=== PATIENT | male | born 1945 | race Caucasian/White ===

== ENCOUNTER → 2016-11-07 | Outpatient (CLI) | payer OTHER ==
[~2016-11-07] MED LIST: ASCA500 PO; ASPI-435 PO; ASPI325T39 PO; CHOL1000 PO; CLOP1TAB5 PO; CRD60 PO; CYAN10004 PO; DILT40TA PO; DTRSR/10 PO; FERR1TAB23 PO; FINA5TAB PO; GABA1CAP5 PO; GLUCTAB7 PO; LSN/2025 PO; METO50TA7 PO; MISCCAP80 PO; MULT-506 PO; NIAC750T2 PO; OMEG10007 PO; PLV75 PO; POTA-335 PO; POTA1TAB97 PO; PRLSR20 PO; PROB1TAB16 PO; PYRI100T4 PO; SOLI10TA2 PO; TAMS0.4C38 PO; TRAM-10 PO; VITBC PO
[2016-11-11 22:48] LABS: VITAMIN B6** TC 926 60.5 ng/mL (2.1-21.7)
--- NOTE | 2016-11-23 09:19 | CODING QUERY MEDICAL NECESSITY ---
CQSUPPORTING DIAGNOSIS NEEDED A supporting diagnosis is required for the test/procedure performed on this patient in order for us to be reimbursed by the patient's insurance. Please provide a supporting diagnosis for the following test/procedure listed below next to the test name along with your signature. *If there is no additional diagnosis for this patient that would support the following test/procedure please document that below next to the test/procedure. Test(s)/Procedure(s) that require a supporting diagnosis: DOS 11/07/16 VITAMINS B12, B6, B2 AND B1 ORDERED BY RICHARD HESS Provider Signature: Date: Thank you Airam Willis Health Information Management Once completed, please kindly fax back to [phone] For questions please call [phone]
== END | disposition home or self-care (01) ==
LOC: C.LAB 09:22
PROVIDERS: ATTEND Internal Medicine
DX: R20.0 Anesthesia of skin (principal)

== ENCOUNTER → 2016-12-16 | Outpatient (CLI) | payer OTHER ==
[~2016-12-16] VITALS: Ht 175.3 cm; Wt 131.4 kg
[2016-12-16 13:14] VITALS: BP 132/68; PULSE 60; Ht 175.3 cm; Wt 131.4 kg
== END | disposition home or self-care (01) ==
LOC: C.NEUR 12:09
PROVIDERS: ATTEND Internal Medicine Pulmonary Disease
DX: G47.33 Obstructive sleep apnea (adult) (pediatric) (principal)

== ENCOUNTER 2016-12-28 16:54 | Inpatient (IN) | payer OTHER ==
[~2016-12-28] VITALS: Ht 175.3 cm; Wt 129.6 kg
[~2016-12-28 16:54] MED LIST changes: -ASPI-435 PO; -CHOL1000 PO; -CLOP1TAB5 PO; -DILT40TA PO; -DTRSR/10 PO; -PLV75 PO; -POTA1TAB97 PO; -PROB1TAB16 PO
[2016-12-28] MEDS ORDERED: ASPIRIN 81 MG CHEW PO STA (17:14)
--- NOTE | 2016-12-28 17:22 | EMERGENCY ROOM VISIT NOTE ---
History Report prepared by Carmen: Candace Christiansen Under the Supervision of: Dr. Donnie Foster D.O. First contact with patient: 17:07 Chief Complaint: CARDIAC ASSESSMENT Stated Complaint: HEART PROBLEMS Nursing Triage Summary: Pt sent by Dr. [facility]. Pt reports heaviness in substernal chest, worse with exertion over the past 2-3 weeks. SOB. Hx of CAD with stent. History of Present Illness The patient is a 71 year old male who presents to the Emergency Room with complaints of persistent substernal chest pain for the past 2 to 3 weeks. He is accompanied by his . He rates his discomfort as a 1/10 and reports it is worse with exertion. He also complains of some shortness of breath that started around the same times as his chest pain. He admits to some back pain but notes he has a history of spinal stenosis and back pain is chronic for him. He also thinks his legs are more swollen than normal. The patient has a history of CAD with a stent. He follows with Dr. Fraser of [facility]. He denies any history of OK's. He is a non-smoker and states he drinks alcohol "once or twice a year". He denies any recent abdominal pain. He saw Dr. Granadso's office earlier today and after undergoing an EKG, Dr. Granados referred him to the ED for further evaluation. 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 A total of 10 systems reviewed and were otherwise negative. Past Medical & Surgical Medical Problems: (1) Coronary artery disease Social History Smoking Status: Former Smoker Drug Use: none Marital Status: Housing Status: lives with family Occupation Status: retired Current/Historical Medications Scheduled Ascorbic Acid (Vitamin C), 1 TAB PO HS Aspirin (Aspirin Ec), 325 MG PO QAM Diltiazem Hcl (Cardizem), 60 MG PO HS Finasteride (Proscar), 5 MG PO QAM Fish Oil ([place]-3), 1 CAP PO HS Gabapentin (Neurontin), 800 MG PO TID Wggidkcdpco-Fquiwfayqht-Qeb C- (Glucosamine Chondroitin), 1 TAB PO BID Hctz/Lisinopril (Lisinopril/Hctz 20/25 Mg), 1 TAB PO QAM Metoprolol Succ (Toprol Xl) (Toprol-Xl), 50 MG PO BID Multivitamin (Multivitamin), 1 TAB PO QAM Niacin Ext Rel (Niaspan Ext Rel), 750 MG PO BID Omeprazole (Prilosec), 20 MG PO QAM Potassium Chloride (K-Tab), 20 MEQ PO QAM Solifenacin (Vesicare), 10 MG PO HS Tamsulosin Hcl (Flomax), 0.4 MG PO HS Scheduled PRN Tramadol (Ultram), 50 MG PO Q4HR PRN for Pain Allergies Coded Allergies: Penicillins (Verified Allergy, Unknown, RASH, 12/28/16) Statins (Verified Adverse Reaction, Unknown, "WEAK", 12/28/16) Physical Exam Vital Signs Date Time Temp Pulse Resp B/P Pulse Ox O2 Delivery O2 Flow Rate FiO2 12/28/16 20:34 65 20 188/94 94 Room Air 12/28/16 20:16 58 24 172/81 96 Room Air 12/28/16 18:59 58 20 171/80 96 Room Air 12/28/16 18:29 54 20 162/74 95 12/28/16 17:40 55 163/84 12/28/16 17:38 94 Room Air 12/28/16 17:28 54 12/28/16 17:00 36.4 57 18 142/73 95 Room Air Physical Exam GENERAL: Patient is awake, alert, in no acute distress patient is resting comfortably and showing no signs of anxiety EYES: The conjunctivae are clear. The pupils are round and reactive. EARS, NOSE, MOUTH AND THROAT: The nose is without any evidence of any deformity. Mucous membranes are moist tongue is midline NECK: The neck is nontender and supple. RESPIRATORY: Normal respiratory effort is noted there is no evidence of wheezing rhonchi or rales CARDIOVASCULAR: Regular rate and rhythm noted there no murmurs rubs or gallops normal S1 normal S2 GASTROINTESTINAL: The abdomen is soft. Bowel sounds are present in all quadrants. Abdomen is nontender MUSCULOSKELETAL/EXTREMITIES: There is no evidence of gross deformity full range of motion is noted in the hips and shoulders SKIN: Pedal edema bilaterally, no signs of cellulitis or calf tenderness. There is no obvious evidence of any rash. There are no petechiae, pallor or cyanosis noted. NEUROLOGIC: Patient is awake alert and oriented x3 strength is symmetric patellar reflexes are 2+ bilaterally Medical Decision & Procedures ER Provider Diagnostic Interpretation: This X-Ray was reviewed and interpreted by myself and the radiologist. SINGLE VIEW CHEST IMPRESSION: Cardiomegaly with no acute cardiopulmonary abnormality. Electronically signed by: Junior Moon M.D. 12/28/2016 5:34 PM Laboratory Results 12/28/16 18:20 Red Blood Count 3.98, Mean Corpuscular Volume 91.0, Mean Corpuscular Hemoglobin 31.9, Mean Corpuscular Hemoglobin Concent 35.1, Mean Platelet Volume 9.8, Neutrophils (%) (Auto) 58.5, Lymphocytes (%) (Auto) 26.5, Monocytes (%) (Auto) 8.3, Eosinophils (%) (Auto) 6.5, Basophils (%) (Auto) 0.2, Neutrophils # (Auto) 2.89, Lymphocytes # (Auto) 1.31, Monocytes # (Auto) 0.41, Eosinophils # (Auto) 0.32, Basophils # (Auto) 0.01 12/28/16 18:20 Test 12/28/16 18:20 White Blood Count 4.94 K/uL (4.8-10.8) Red Blood Count 3.98 M/uL (4.7-6.1) Hemoglobin 12.7 g/dL (14.0-18.0) Hematocrit 36.2 % (42-52) Mean Corpuscular Volume 91.0 fL (80-100) Mean Corpuscular Hemoglobin 31.9 pg (25-34) Mean Corpuscular Hemoglobin Concent 35.1 g/dl (32-36) Platelet Count 117 K/uL (130-400) Mean Platelet Volume 9.8 fL (7.4-10.4) Neutrophils (%) (Auto) 58.5 % Lymphocytes (%) (Auto) 26.5 % Monocytes (%) (Auto) 8.3 % Eosinophils (%) (Auto) 6.5 % Basophils (%) (Auto) 0.2 % Neutrophils # (Auto) 2.89 K/uL (1.4-6.5) Lymphocytes # (Auto) 1.31 K/uL (1.2-3.4) Monocytes # (Auto) 0.41 K/uL (0.11-0.59) Eosinophils # (Auto) 0.32 K/uL (0-0.5) Basophils # (Auto) 0.01 K/uL (0-0.2) RDW Standard Deviation 44.6 fL (36.4-46.3) RDW Coefficient of Variation 13.6 % (11.5-14.5) Immature Granulocyte % (Auto) 0.0 % Immature Granulocyte # (Auto) 0.00 K/uL (0.00-0.02) Prothrombin Time 10.5 SECONDS (9.0-12.0) Prothromb Time International Ratio 1.0 (0.9-1.1) Activated Partial Thromboplast Time 26.4 SECONDS (21.0-31.0) Partial Thromboplastin Ratio 1.0 Anion Gap 5.0 mmol/L (3-11) Est Creatinine Clear Calc Drug Dose 99.6 ml/min Estimated GFR () 98.3 Estimated GFR (Non- 84.8 BUN/Creatinine Ratio 21.4 (10-20) Calcium Level 8.6 mg/dl (8.5-10.1) Total Bilirubin 0.3 mg/dl (0.2-1) Direct Bilirubin 0.1 mg/dl (0-0.2) Aspartate Amino Transf (AST/SGOT) 27 U/L (15-37) Alanine Aminotransferase (ALT/SGPT) 43 U/L (12-78) Alkaline Phosphatase 89 U/L (45-117) Total Creatine Kinase 120 U/L (39-308) Creatine Kinase MB 1.8 ng/ml (0.5-3.6) Creatine Kinase MB Ratio 1.5 (0-3.0) Troponin I 0.027 ng/ml (0-0.045) Pro-B-Type Natriuretic Peptide 234 pg/ml (0-900) Total Protein 6.5 gm/dl (6.4-8.2) Albumin 3.3 gm/dl (3.4-5.0) Lipase 126 U/L (73-393) Lyme Disease IgG Antibody NEG (NEG) Lyme Disease IgM Antibody NEG (NEG) Laboratory results per my review. Medications Administered Medications (Trade) Dose Ordered Sig/[place] Route Start Time Stop Time Status Last Admin Dose Admin Aspirin (Aspirin Chew) 324 mg NOW STAT PO 5/3/17 17:14 12/28/16 17:15 DC 12/28/16 17:45 324 MG ECG Indication: chest pain Rate (beats per minute): 55 Rhythm: sinus bradycardia Findings: 1st degree AV block, RBBB, other (No PVC's) Comparison ECG Date: RBBB is new when compared to August 09, 2007 ED Course 1710: The patient was evaluated in room C12. A complete history and physical examination were performed. 1713: Aspirin 324 mg PO. 1924: I reevaluated the patient. I discussed my recommendation that he remain in the hospital for further evaluation and management and he and his verbalized complete understanding and agreement. 1926: I discussed the patients case with Dr. Lynn [facility] Hospitalist. The patient will be further evaluated. Medical Decision Prior records/ancillary studies reviewed. Triage Nursing notes reviewed. The patient's history was concerning for chest pain. Differential diagnosis: Etiologies such as cardiac ischemia, aortic dissection, pulmonary embolism, pneumonia, pneumothorax, musculoskeletal, infections, pericarditis, myocarditis , esophageal rupture, gastrointestinal, as well as others were entertained. The patient is a 71-year-old male who presented to the emergency department for an evaluation of chest pain and dyspnea on exertion. The patient went to see his primary care physician today for the symptoms. He was found have a new right bundle-branch block on EKG. The patient had no symptoms upon arrival here. His primary printing plate clerk was notified by his primary care physician. The patient's pain did not recur while he was in the emergency department. I discussed the patient's laboratory and radiographic studies with him. I also discussed his case with the on-call [facility] hospitalist. They've agreed to evaluate the patient in the emergency department for further management and disposition. Consults Time Called: 1925 Consulting Physician: Dr. Lynn [facility] Hospitalist Returned Call: 1926 I discussed the patients case with Dr. Lynn [facility] Hospitalist. The patient will be further evaluated. Impression Primary Impression: Chest pain Additional Impressions: Dyspnea on exertion Abnormal EKG Elevated troponin Scribe Attestation The scribe's documentation has been prepared under my direction and personally reviewed by me in its entirety. I confirm that the note above accurately reflects all work, treatment, procedures, and medical decision making performed by me. Departure Information Dispostion Being Evaluated By Hospitalist Referrals Kane Granados M.D. (PCP) Patient Instructions [facility] Problem Qualifiers Primary Impression: Chest pain Chest pain type: unspecified Qualified Codes: R07.9 - Chest pain, unspecified
--- NOTE | 2016-12-28 17:35 | DIAGNOSTIC IMAGING REPORT ---
SINGLE VIEW CHEST CLINICAL HISTORY: Atypical chest pain. FINDINGS: An AP, portable, upright chest radiograph is compared to study dated 03/06/2013 and correlated with chest CT dated 06/29/2016. The examination is degraded by portable technique and apical lordotic positioning. The heart is enlarged and there is atherosclerotic calcification of the thoracic aorta. The pulmonary vasculature is noncongested. The lungs and pleural spaces are clear. No pneumothorax is seen. The bony thorax is grossly intact. Degenerative change is noted in the thoracic spine. IMPRESSION: Cardiomegaly with no acute cardiopulmonary abnormality. Electronically signed by: Junior Moon M.D. 12/28/2016 5:34 PM Dictated Date/Time: 12/28/2016 5:33 PM
[2016-12-28] MEDS ORDERED: POTA1TAB97 PO (17:49)
[2016-12-28] MEDS ORDERED: DILT40TA PO (17:49)
[2016-12-28 18:33] LABS: BASO % 0.2 %; BASO ABS # 0.01 K/uL (0-0.2); COMPLETE YES; EOS % 6.5 %; HEMATOCRIT 36.2 % (42-52); LYMPH % 26.5 %; LYMPH ABS # 1.31 K/uL (1.2-3.4); MEAN CORPUSCULAR HEMOGLOBIN 31.9 pg (25-34); MEAN CORPUSCULAR HGB CONC 35.1 g/dl (32-36); MEAN PLATELET VOLUME 9.8 fL (7.4-10.4); MONO % 8.3 %; NEUT % 58.5 %; PLATELET COUNT 117 K/uL (130-400); RED BLOOD COUNT 3.98 M/uL (4.7-6.1); WHITE BLOOD COUNT 4.94 K/uL (4.8-10.8)
[2016-12-28 18:44] LABS: PROTHROMBIN TIME (PATIENT) 10.5 SECONDS (9.0-12.0)
[2016-12-28 18:51] LABS: BUN/CREATININE RATIO 21.4 (10-20); CALCIUM 8.6 mg/dl (8.5-10.1); CREATININE 0.89 mg/dl (0.60-1.40); POTASSIUM 4.1 mmol/L (3.5-5.1)
[2016-12-28 18:56] LABS: CKMB/CK RATIO 1.5 (0-3.0)
[2016-12-28 19:22] LABS: LYME DISEASE AB IGM NEG (NEG)
[2016-12-28 19:26] LABS: LYME DISEASE AB IGG NEG (NEG)
[2016-12-28] MEDS ORDERED: ONDANSETRON INJ 2 MG/ML 2 ML VIAL IV PRN (20:15)
[2016-12-28] MEDS ORDERED: ZOLPIDEM TARTRATE 5 MG TAB PO PRN (20:15)
[2016-12-28] MEDS ORDERED: ACETAMINOPHEN 325 MG TAB PO PRN (20:15)
[2016-12-28] MEDS ORDERED: MoRPHine SULFATE 2 MG/ML CARP IV PRN (20:15)
[2016-12-28] MEDS ORDERED: MoRPHine SULFATE 4 MG/ML 1 ML CARP\\VIAL IV PRN (20:15)
[2016-12-28] MEDS ORDERED: NITROGLYCERIN 0.4 MG SL PER TAB CHARGE SL PRN (20:15)
[2016-12-28] MEDS ORDERED: TRAMADOL HCL 50 MG TAB PO PRN (20:15)
[2016-12-28] MEDS ORDERED: IV FLUIDS COMPLETED PRN (20:45)
[2016-12-28] MEDS ORDERED: NIASPAN 500 MG TABCR PO SCH (21:00)
[2016-12-28] MEDS ORDERED: NON-FORMULARY MEDICATION (Glucosamine-Chondroitin-Vit C- (Glucosamine Chondroitin) 1 TAB) PO SCH (21:00)
[2016-12-28 21:17] VITALS: BP_SYST 172; BP_SYST 181; BP_DIAS 72; BP_DIAS 78; PULSE 58; TEMP 36.6; O2SAT 95; Ht 175.3 cm; Wt 129.6 kg
[2016-12-28] MEDS: TAMSULOSIN HCL 0.4 MG CAP PO SCH (21:49)
[2016-12-28] MEDS: GABAPENTIN 400 MG CAP PO SCH (21:50)
[2016-12-28] MEDS: OMEGA-3 (PURIFIED FISH OIL) 1 GM CAP PO SCH (21:50)
[2016-12-28] MEDS: DILTIAZEM HCL 60 MG TAB PO SCH (21:51)
[2016-12-28] MEDS: ASCORBIC ACID 500 MG TAB PO SCH (21:52)
[2016-12-28] MEDS: METOPROLOL SUCC 50MG EXT REL TAB PO SCH (21:52)
--- NOTE | 2016-12-28 23:20 | History and Physical ---
History & Physical Date & Time of Service: December 28, 2016 at 23:20 Chief Complaint: Chest Pain, Dyspnea On Exertion Primary Care Physician: Kane Granados M.D. History of Present Illness Source: patient, spouse The patient is a 71-year-old male presents emergency department at the insistence of his for chest pain and shortness of breath, both worse with exertion over the past 2-3 weeks. He has a history of coronary artery disease with a stent. He presented to his PCPs office earlier in the day today, as part of his workup had an EKG which was different than his baseline, and he was then referred to the emergency department for further assessment. He also follows with Dr. Fraser from cardiology. He reports no difference in his usual activities, eating patterns or sleeping patterns. Social History Smoking Status: Former Smoker Smokeless Tobacco Use: No Alcohol Use: none Drug Use: none Marital Status: Housing status: lives with family Occupational Status: retired Immunizations History of Influenza Vaccine: No History of Tetanus Vaccine?: Yes Tetanus Immunization Date: Dec 01, 1999 History of Pneumococcal: No History of Hepatitis B Vaccine: No Multi-Drug Resistant Organisms History of MDRO: No Allergies Coded Allergies: Penicillins (Verified Allergy, Unknown, RASH, 12/28/16) Statins (Verified Adverse Reaction, Unknown, "WEAK", 12/28/16) Home Medications Scheduled Ascorbic Acid (Vitamin C), 1 TAB PO HS Aspirin (Aspirin Ec), 325 MG PO QAM Diltiazem Hcl (Cardizem), 60 MG PO HS Finasteride (Proscar), 5 MG PO QAM Fish Oil ([place]-3), 1 CAP PO HS Gabapentin (Neurontin), 800 MG PO TID Ipyiwuvtbcl-Leyqppspgwx-Rgv C- (Glucosamine Chondroitin), 1 TAB PO BID Hctz/Lisinopril (Lisinopril/Hctz 20/25 Mg), 1 TAB PO QAM Metoprolol Succ (Toprol Xl) (Toprol-Xl), 50 MG PO BID Multivitamin (Multivitamin), 1 TAB PO QAM Niacin Ext Rel (Niaspan Ext Rel), 750 MG PO BID Omeprazole (Prilosec), 20 MG PO QAM Potassium Chloride (K-Tab), 20 MEQ PO QAM Solifenacin (Vesicare), 10 MG PO HS Tamsulosin Hcl (Flomax), 0.4 MG PO HS Scheduled PRN Tramadol (Ultram), 50 MG PO Q4HR PRN for Pain Review of Systems Constitutional: No chills, No fatigue, No fever, No problem reported, No sweats , No weakness, No weight loss Eyes: No diplopia, No discharge, No eye pain, No problem reported, No redness, No worsening of vision ENT: No dental problems, No hearing loss, No nasal symptoms, No problem reported, No sore throat, No tinnitus, No trouble swallowing, No unusual epistaxis Respiratory: + dyspnea on exertion, + shortness of breath, No cough, No dyspnea at rest, No hemoptysis, No sputum, No wheezing Cardiovascular: + chest pain, + edema, No PND, No claudication, No orthopnea, No palpitations Abdomen: No GI bleeding, No constipation, No diarrhea, No nausea, No pain, No problem reported, No vomiting Musculoskeletal: No calf pain, No joint pain, No muscle pain, No problem reported, No swelling Genitourinary - Male: No dysuria, No hematuria, No impotence, No lesions, No penile discharge, No problem reported, No urinary frequency, No urinary hesitancy, No urinary incontinence, No urinary retention, No urinary urgency Neurologic: No balance problems, No memory loss, No numbness/tingling, No paralysis, No problem reported, No vertigo, No weakness Psychiatric: No anhedonism, No anxiety, No depression symptoms, No insomnia, No problem reported, No substance abuse Endocrine: No excessive thirst, No excessive urination, No fatigue, No problem reported Hematologic / Lymphatic: No abnormal bleeding/bruising, No clotting problems, No night sweats, No problem reported, No swollen lymph nodes Integumentary: No bleeding, No color change, No itch, No new/changing skin lesions, No problem reported, No rash Allergic / Immunologic: No environmental allergies, No food allergies, No frequent infections, No hives, No pet sensitivities, No poor healing, No problem reported, No prolonged convalescence, No seasonal allergies Physical Exam Vital Signs Date Time Temp Pulse Resp B/P Pulse Ox O2 Delivery O2 Flow Rate FiO2 12/28/16 21:17 36.6 58 22 181/78 95 Room Air 172/72 12/28/16 20:34 65 20 188/94 94 Room Air 12/28/16 20:16 58 24 172/81 96 Room Air 12/28/16 18:59 58 20 171/80 96 Room Air 12/28/16 18:29 54 20 162/74 95 12/28/16 17:40 55 163/84 12/28/16 17:38 94 Room Air 12/28/16 17:28 54 12/28/16 17:00 36.4 57 18 142/73 95 Room Air General Appearance: WD/WN, no apparent distress Head: normocephalic, atraumatic Eyes: normal inspection, PERRL, EOMI, sclerae normal ENT: normal ENT inspection, pharynx normal Neck: supple, no adenopathy, thyroid normal, no JVD, no carotid bruits, trachea midline Respiratory/Chest: chest non-tender, lungs clear, normal breath sounds, no respiratory distress, no accessory muscle use Cardiovascular: regular rate, rhythm, no gallop, no JVD, no murmur, normal peripheral pulses, + pertinent finding (there is 1+ pitting edema bilaterally.) Abdomen/GI: normal bowel sounds, non tender, soft, no organomegaly, no pulsatile mass Back: normal inspection, no CVA tenderness, no muscle spasm, + pertinent finding (mildly decreased range of motion due to chronic low back pain.) Extremities/Musculoskelatal: normal inspection, no calf tenderness, normal capillary refill, no pedal edema, normal range of motion, non-tender Neurologic/Psych: chief estimator II-XII nml as tested, no motor/sensory deficits, alert, normal mood/affect, normal reflexes, oriented x 3 Skin: normal color, warm/dry, no rash Lymphatic: no adenopathy Diagnostics Laboratory Results Results Past 24 Hours Test 12/28/16 17:14 12/28/16 18:20 Range/Units Creatine Kinase MB Ratio 1.5 0-3.0 White Blood Count 4.94 4.8-10.8 K/uL Red Blood Count 3.98 4.7-6.1 M/uL Hemoglobin 12.7 14.0-18.0 g/dL Hematocrit 36.2 42-52 % Mean Corpuscular Volume 91.0 80-100 fL Mean Corpuscular Hemoglobin 31.9 25-34 pg Mean Corpuscular Hemoglobin Concent 35.1 32-36 g/dl Platelet Count 117 130-400 K/uL Mean Platelet Volume 9.8 7.4-10.4 fL Neutrophils (%) (Auto) 58.5 % Lymphocytes (%) (Auto) 26.5 % Monocytes (%) (Auto) 8.3 % Eosinophils (%) (Auto) 6.5 % Basophils (%) (Auto) 0.2 % Neutrophils # (Auto) 2.89 1.4-6.5 K/uL Lymphocytes # (Auto) 1.31 1.2-3.4 K/uL Monocytes # (Auto) 0.41 0.11-0.59 K/uL Eosinophils # (Auto) 0.32 0-0.5 K/uL Basophils # (Auto) 0.01 0-0.2 K/uL RDW Standard Deviation 44.6 36.4-46.3 fL RDW Coefficient of Variation 13.6 11.5-14.5 % Immature Granulocyte % (Auto) 0.0 % Immature Granulocyte # (Auto) 0.00 0.00-0.02 K/uL Prothrombin Time 10.5 9.0-12.0 SECONDS Prothromb Time International Ratio 1.0 0.9-1.1 Activated Partial Thromboplast Time 26.4 21.0-31.0 SECONDS Partial Thromboplastin Ratio 1.0 Sodium Level 142 136-145 mmol/L Potassium Level 4.1 3.5-5.1 mmol/L Chloride Level 109 98-107 mmol/L Carbon Dioxide Level 28 21-32 mmol/L Anion Gap 5.0 3-11 mmol/L Blood Urea Nitrogen 19 7-18 mg/dl Creatinine 0.89 0.60-1.40 mg/dl Est Creatinine Clear Calc Drug Dose 99.6 ml/min Estimated GFR () 98.3 Estimated GFR (Non- 84.8 BUN/Creatinine Ratio 21.4 10-20 Random Glucose 107 70-99 mg/dl Calcium Level 8.6 8.5-10.1 mg/dl Total Bilirubin 0.3 0.2-1 mg/dl Direct Bilirubin 0.1 0-0.2 mg/dl Aspartate Amino Transf (AST/SGOT) 27 15-37 U/L Alanine Aminotransferase (ALT/SGPT) 43 12-78 U/L Alkaline Phosphatase 89 45-117 U/L Total Creatine Kinase 120 39-308 U/L Creatine Kinase MB 1.8 0.5-3.6 ng/ml Troponin I 0.027 0-0.045 ng/ml Pro-B-Type Natriuretic Peptide 234 0-900 pg/ml Total Protein 6.5 6.4-8.2 gm/dl Albumin 3.3 3.4-5.0 gm/dl Lipase 126 73-393 U/L Lyme Disease IgG Antibody NEG NEG Lyme Disease IgM Antibody NEG NEG Diagnostic Radiology Patient Name: IWONA WOODARD Unit Number: [id number] Dictated: 12/28/161732 Transcribed: 12/28/161732 EV Printed Date/Time: [~ rep prt dt]/[~ rep prt tm] [~ rep ct labl] - [~ rep ct ivnm] [facility] [place] [address] Dictated: 12/28/161732 Transcribed: 12/28/161732 EV Printed Date/Time: [~ rep prt dt]/[~ rep prt tm] [~ rep ct labl] - [~ rep ct ivnm] SINGLE VIEW CHEST CLINICAL HISTORY: Atypical chest pain. FINDINGS: An AP, portable, upright chest radiograph is compared to study dated 03/06/2013 and correlated with chest CT dated 06/29/2016. The examination is degraded by portable technique and apical lordotic positioning. The heart is enlarged and there is atherosclerotic calcification of the thoracic aorta. The pulmonary vasculature is noncongested. The lungs and pleural spaces are clear. No pneumothorax is seen. The bony thorax is grossly intact. Degenerative change is noted in the thoracic spine. IMPRESSION: Cardiomegaly with no acute cardiopulmonary abnormality. Electronically signed by: Junior Moon M.D. 12/28/2016 5:34 PM Dictated Date/Time: 12/28/2016 5:33 PM The status of this report is Signed. Draft = Not yet reviewed or approved by Radiologist. Signed = Reviewed and approved by Radiologist. <AttendingPhy></AttendingPhy> <FamilyPhy>Kane Granados M.D.</FamilyPhy > <PrimaryPhy>Kane Granados M.D.</PrimaryPhy> <UnitNumber>[id number]</ UnitNumber> <VisitNumber>[id number]</VisitNumber> <PatientName>IWONA WOODARD</PatientName> <DateOfBirth>1945</DateOfBirth> <Location>[facility] </Location> <ServiceDate>12/28/16</ServiceDate> <MNE>ESINDI</MNE> <OrderingPhy> Donnie Foster D.O.</OrderingPhy> <OrderingPhyMNE>f rep ord dr strong</ OrderingPhyMNE> <DictatingPhyMNE>f rep dict dr storng</DictatingPhyMNE> <CCListMNE> f rep ct tae</CCListMNE> <AdmittingPhyMNE>f pt admit dr strong</AdmittingPhyMNE> < AttendingPhyMNE>f pt attend dr strong</AttendingPhyMNE> <ConsultingPhyMNE>f pt consult dr strong</ConsultingPhyMNE> <FamilyPhyMNE>f pt fam dr strong</FamilyPhyMNE> <OtherPhyMNE>f pt other dr strong</OtherPhyMNE> < PrimaryPhyMNE>f pt prim care dr strong</PrimaryPhyMNE> <ReferringPhyMNE>f pt referring dr strong</ReferringPhyMNE> EKG EKG shows sinus bradycardia at 55 bpm, first-degree heart block, right bundle branch block, left axis deviation Impression Assessment and Plan Coronary artery disease/coronary artery stent/hypertension/precordial chest pain and shortness of breath--the patient will be admitted to telemetry unit for serial cardiac enzymes, cardiac rhythm monitoring and a 2-D echocardiogram with Dopplers. We'll continue aspirin 320 mg by mouth every morning, diltiazem 60 mg by mouth at bedtime, lisinopril/HCTZ 20/25 every morning, metoprolol succinate 50 mg by mouth twice a day, potassium chloride 20 mEq by mouth every morning. We'll consult his surgical coordinator Dr. Fraser. GERD--change omeprazole 20 mg by mouth every morning pantoprazole 40 mg by mouth every morning. Peripheral neuropathy--continue gabapentin 800 mg by mouth 3 times a day. BPH--continue finasteride 5 mg by mouth every morning and tamsulosin 0.4 mg by mouth at bedtime. Bladder spasm--continue Vesicare 10 mg by mouth at bedtime. Hypercholesterolemia--continue Niaspan extended release 750 mg by mouth twice a day, and fish oil 1 capsule by mouth at bedtime. Level of Care Telemetry Advanced Directives Existing Advance Directive: No Existing Living Will: No Existing Power of Ticket Broker: No Resuscitation Status FULL RESUSCITATION VTE Prophylaxis VTE Risk Assessment Done? Y/N: Yes Risk Level: Moderate Given or contraindicated: SCD's
[2016-12-28 23:46] VITALS: BP 157/65; PULSE 63; TEMP 36.5; O2SAT 98
[2016-12-28] MEDS: VESICARE~ORDER AWAITING ACTION SCH (23:54)
[2016-12-29] VITALS (22 sets, daily range): BP systolic 146–188; BP diastolic 62–96; PULSE 59–75; TEMP 36.5–36.9; O2SAT 94–98
[2016-12-29 04:44] LABS: BASO % 0.2 %; BASO ABS # 0.01 K/uL (0-0.2); COMPLETE YES; EOS % 8.1 %; HEMATOCRIT 37.2 % (42-52); IG% 0.2 %; LYMPH % 22.8 %; LYMPH ABS # 1.21 K/uL (1.2-3.4); MEAN CORPUSCULAR HEMOGLOBIN 31.5 pg (25-34); MEAN CORPUSCULAR HGB CONC 34.7 g/dl (32-36); MEAN PLATELET VOLUME 9.8 fL (7.4-10.4); MONO % 8.5 %; NEUT % 60.2 %; PLATELET COUNT 114 K/uL (130-400); RED BLOOD COUNT 4.09 M/uL (4.7-6.1); WHITE BLOOD COUNT 5.31 K/uL (4.8-10.8)
[2016-12-29 04:55] LABS: PROTHROMBIN TIME (PATIENT) 10.7 SECONDS (9.0-12.0)
[2016-12-29 05:04] LABS: BUN/CREATININE RATIO 22.3 (10-20); CALCIUM 8.7 mg/dl (8.5-10.1); CREATININE 0.95 mg/dl (0.60-1.40); MAGNESIUM 2.2 mg/dl (1.8-2.4)
[2016-12-29 05:09] LABS: CKMB/CK RATIO 1.5 (0-3.0)
[2016-12-29] MEDS: METOPROLOL SUCC 50MG EXT REL TAB PO SCH ×2 (08:40→21:16)
[2016-12-29] MEDS: FINASTERIDE 5 MG TAB PO SCH (08:40)
[2016-12-29] MEDS: MULTIVITAMIN TAB PO SCH (08:40)
[2016-12-29] MEDS: LISINOPRIL/HCTZ 20/25MG TAB PO SCH (08:40)
[2016-12-29] MEDS: GABAPENTIN 400 MG CAP PO SCH ×3 (08:41→21:16)
[2016-12-29] MEDS: PANTOprazole SOD 40 MG TAB PO SCH (08:41)
[2016-12-29] MEDS: POTASSIUM CHLORIDE 20 MEQ TABCR PO SCH (08:41)
[2016-12-29] MEDS ORDERED: ASPIRIN 325 MG ECTAB PO SCH (09:00)
--- NOTE | 2016-12-29 11:24 | CARDIOLOGY CONSULTATION ---
DATE OF CONSULTATION: 12/29/2016 DATE OF CONSULTATION: 12/29/2016. CONSULTATION REQUESTED BY: Dr. Lynn. PRIMARY PEN MAKER: Dr. Fraser. REASON FOR CONSULTATION: Chest pain at rest, history of coronary artery disease. HISTORY OF PRESENT ILLNESS: Mr. Interiano is a 71-year-old man with a history of coronary artery disease status post PCI with stent to his RCA in 2002, hypertension, dyslipidemia, stable descending thoracic aortic aneurysm, obstructive sleep apnea on CPAP, and atrial flutter status post ablation in 2006, who was readmitted yesterday in the setting of recurrent exertional chest pain. The patient states that he had been in his usual state of health up until about 2 weeks ago at which time started noticing chest tightness with arm numbness bilaterally occurring primarily when he exerted himself. These episodes occurred several times a day were relieved with rest. More recently he describes an episode on Monday where he attempted to lift a box of shingles and developed severe discomfort and weakness in his arms bilaterally. Due to symptoms, he presented to his primary care physician, Dr. Granados yesterday. Dr. Granados evaluated the patient and due to concern for unstable angina sent the patient to the Emergency Department. In the ED, the patient's EKG showed no dynamic ST changes. His cardiac enzymes were negative overnight and he has remained hemodynamically and electrically stable. He continues with some mild numbness in his upper extremities, but no recurrent chest pain. Telemetry was reviewed and there are no significant events overnight. PAST MEDICAL HISTORY: 1. Coronary artery disease. Initially diagnosed in 2002 in the setting of new onset angina, had a Express stent placed to his RCA in 2006. He had worsening angina and again underwent cardiac catheterization at that time he had nonobstructive disease, patent RCA stent. Most recent catheterization was in 2012, at which time patient had 30% disease in his mid LAD, 30% disease in his proximal ramus, 30-40% disease in his proximal left circumflex and patent RCA stent with 30-40% stenosis distal to the stent, LV gram showed an EF of 65-70% with 1+ mitral regurgitation. 2. Descending thoracic aortic aneurysm 3.8 cm beginning just after left subclavian origin. 3. Atrial flutter status post successful radiofrequency ablation at [facility] in January of 2007. 4. Hypertension. 5. Dyslipidemia. 6. Obstructive sleep apnea on CPAP. PAST SURGICAL HISTORY: Prior knee arthroscopy and umbilical hernia repair. SOCIAL HISTORY: Social drinker. He is a remote smoker. 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 He is currently . HOME MEDICATIONS: Include ascorbic acid, aspirin 325, diltiazem 60, finasteride, fish oil, gabapentin, glucosamine chondroitin, hydrochlorothiazide, lisinopril 20/25 mg, metoprolol succinate 50 mg b.i.d., multivitamin, niacin, omeprazole, potassium, VESIcare, Flomax and Tramadol. ALLERGIES: PENICILLIN AND STATINS. REVIEW OF SYSTEMS: Ten point review of systems completed and otherwise negative unless stated in HPI. PHYSICAL EXAMINATION: VITAL SIGNS: Temperature 36.9, pulse 59, blood pressure 136/64, satting 95% on room air. GENERAL: The patient appears comfortable in no acute distress. HEAD, EYES, EARS, NOSE, AND THROAT: Sclerae are anicteric. Oropharynx is clear. Mucous membranes are moist. NECK: Supple. He has no lymphadenopathy. He has no jugular distention. LUNGS: Clear to auscultation bilaterally. HEART: He has a regular rate and rhythm with a 2/6 systolic ejection murmur heard best at the left upper sternal border. ABDOMEN: Obese but soft, nontender. EXTREMITIES: Warm. He has signs of chronic venous stasis in his lower extremities with trace lower extremity edema to his ankles. He has 2+ radial pulses bilaterally and 2+ DP pulses bilaterally. SKIN: Shows no significant rashes or lesions. NEUROLOGIC: Nonfocal. PSYCHIATRIC: Alert, oriented and appropriate. LABORATORY DATA: White blood cell count 5.3, hemoglobin of 12.9, platelets of 114. INR 1.0. Sodium 145, potassium 4.0, BUN 21, creatinine 0.95, magnesium 2.2. Troponin 0.027 and 0.034. Chest x-ray shows cardiomegaly with no acute cardiopulmonary process. EKG on presentation showed sinus rhythm with a right bundle branch block and no significant ST abnormalities. Subsequent EKG this morning again shows sinus rhythm, left axis deviation, first degree AV block and right bundle branch block, no dynamic ST changes. IMPRESSION AND PLAN: 1. Suspected acute coronary syndrome/unstable angina. 2. History of coronary artery disease status post prior percutaneous coronary intervention with bare metal stent to right coronary artery in 2002. 3. Thrombocytopenia. 4. Hypertension. 5. Dyslipidemia with statin intolerance. 6. Descending thoracic aortic aneurysm. 7. Obstructive chronic obstructive pulmonary disease on CPAP. Mr. Interiano is here with new onset exertional chest pain concerning for angina. With his history of coronary artery disease and new typical chest pain feel that further risk stratification is warranted and will plan to proceed directly to cardiac catheterization. Discussed risks, benefits, alternatives of the procedure with patient and he is willing to proceed. In the interim, please keep n.p.o. Continue current aspirin, beta brien and remainder of home blood pressure regimen. Further recommendations pending findings of cardiac catheterization. 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 Fraser, who agrees with plan. Thank you for allowing us to participate in the care of this patient. Please contact us with any questions. YEYO
--- NOTE | 2016-12-29 12:38 | Progress Note ---
Subjective Date of Service: December 29, 2016. Subjective pt has no further chest pain pending left heart cath 12/29 Problem List Medical Problems: (1) Abnormal EKG Status: Acute (2) Chest pain Status: Acute (3) Dyspnea on exertion Status: Acute (4) Elevated troponin Status: Acute Review of Systems Constitutional: No chills, No fever, No weakness Respiratory: + dyspnea on exertion, No cough, No shortness of breath Cardiac: No chest pain, No claudication, No edema Abdomen: No nausea, No pain, No vomiting Objective Vital Signs Date Time Temp Pulse Resp B/P Pulse Ox O2 Delivery O2 Flow Rate FiO2 12/29/16 07:46 36.9 59 22 156/64 95 Room Air 12/29/16 07:33 95 Room Air 12/29/16 04:00 Room Air 12/29/16 03:26 36.5 61 21 148/68 95 Room Air 12/29/16 00:00 Room Air 12/28/16 23:46 36.5 63 17 157/65 98 Room Air 12/28/16 21:17 36.6 58 22 181/78 95 Room Air 172/72 12/28/16 20:34 65 20 188/94 94 Room Air 12/28/16 20:16 58 24 172/81 96 Room Air 12/28/16 18:59 58 20 171/80 96 Room Air 12/28/16 18:29 54 20 162/74 95 12/28/16 17:40 55 163/84 12/28/16 17:38 94 Room Air 12/28/16 17:28 54 12/28/16 17:00 36.4 57 18 142/73 95 Room Air Physical Exam General Appearance: WD/WN, + mild distress Neck: supple, thyroid normal Respiratory/Chest: chest non-tender, lungs clear, normal breath sounds Cardiovascular: regular rate, rhythm, no murmur Abdomen: normal bowel sounds, non tender, soft Extremities: no pedal edema, no calf tenderness Laboratory Results Last 24 Hours Test 12/28/16 17:14 12/28/16 18:20 12/29/16 04:29 Creatine Kinase MB Ratio 1.5 1.5 White Blood Count 4.94 K/uL 5.31 K/uL Red Blood Count 3.98 M/uL 4.09 M/uL Hemoglobin 12.7 g/dL 12.9 g/dL Hematocrit 36.2 % 37.2 % Mean Corpuscular Volume 91.0 fL 91.0 fL Mean Corpuscular Hemoglobin 31.9 pg 31.5 pg Mean Corpuscular Hemoglobin Concent 35.1 g/dl 34.7 g/dl Platelet Count 117 K/uL 114 K/uL Mean Platelet Volume 9.8 fL 9.8 fL Neutrophils (%) (Auto) 58.5 % 60.2 % Lymphocytes (%) (Auto) 26.5 % 22.8 % Monocytes (%) (Auto) 8.3 % 8.5 % Eosinophils (%) (Auto) 6.5 % 8.1 % Basophils (%) (Auto) 0.2 % 0.2 % Neutrophils # (Auto) 2.89 K/uL 3.20 K/uL Lymphocytes # (Auto) 1.31 K/uL 1.21 K/uL Monocytes # (Auto) 0.41 K/uL 0.45 K/uL Eosinophils # (Auto) 0.32 K/uL 0.43 K/uL Basophils # (Auto) 0.01 K/uL 0.01 K/uL RDW Standard Deviation 44.6 fL 45.1 fL RDW Coefficient of Variation 13.6 % 13.7 % Immature Granulocyte % (Auto) 0.0 % 0.2 % Immature Granulocyte # (Auto) 0.00 K/uL 0.01 K/uL Prothrombin Time 10.5 SECONDS 10.7 SECONDS Prothromb Time International Ratio 1.0 1.0 Activated Partial Thromboplast Time 26.4 SECONDS 25.2 SECONDS Partial Thromboplastin Ratio 1.0 1.0 Sodium Level 142 mmol/L 145 mmol/L Potassium Level 4.1 mmol/L 4.0 mmol/L Chloride Level 109 mmol/L 110 mmol/L Carbon Dioxide Level 28 mmol/L 29 mmol/L Anion Gap 5.0 mmol/L 6.0 mmol/L Blood Urea Nitrogen 19 mg/dl 21 mg/dl Creatinine 0.89 mg/dl 0.95 mg/dl Est Creatinine Clear Calc Drug Dose 99.6 ml/min 92.1 ml/min Estimated GFR () 98.3 91.7 Estimated GFR (Non- 84.8 79.1 BUN/Creatinine Ratio 21.4 22.3 Random Glucose 107 mg/dl 119 mg/dl Calcium Level 8.6 mg/dl 8.7 mg/dl Total Bilirubin 0.3 mg/dl Direct Bilirubin 0.1 mg/dl Aspartate Amino Transf (AST/SGOT) 27 U/L Alanine Aminotransferase (ALT/SGPT) 43 U/L Alkaline Phosphatase 89 U/L Total Creatine Kinase 120 U/L 95 U/L Creatine Kinase MB 1.8 ng/ml 1.4 ng/ml Troponin I 0.027 ng/ml 0.034 ng/ml Pro-B-Type Natriuretic Peptide 234 pg/ml Total Protein 6.5 gm/dl Albumin 3.3 gm/dl Lipase 126 U/L Lyme Disease IgG Antibody NEG Lyme Disease IgM Antibody NEG Magnesium Level 2.2 mg/dl Assessment and Plan 71 M with known CAD, presents with two weeks of CP and CAMPBELL Coronary artery disease/coronary artery stent/hypertension/precordial chest pain and shortness of breath, pending echocardiogram aspirin 325 mg diltiazem , lisinopril/HCTZ 20/[address] Kwan has evaluated and concerned this maybe unstable angina will pursue left heart cath 12/29 GERD-pantoprazole 40 mg Peripheral neuropathy-- gabapentin BPH-- finasteride 5 mgand tamsulosin 0.4 mg Bladder spasm- Vesicare 10 mg Hypercholesterolemia- Niaspan extended release 750 mg by mouth and fish oil 1
--- NOTE | 2016-12-29 13:51 | Procedure Note ---
Pre-Mod Sedation Assessment General Date of Moderate Sedation: December 29, 2016. Vital Signs: Vital Signs Past 12 Hours Date Time Temp Pulse Resp B/P Pulse Ox O2 Delivery O2 Flow Rate FiO2 12/29/16 13:13 36.5 61 16 164/76 94 Room Air 12/29/16 11:43 36.8 60 20 167/76 96 Room Air 12/29/16 07:46 36.9 59 22 156/64 95 Room Air 12/29/16 07:33 95 Room Air 12/29/16 04:00 Room Air 12/29/16 03:26 36.5 61 21 148/68 95 Room Air Review Cardiovascular: regular rate, rhythm, no edema Abdomen: normal bowel sounds, non tender Lungs: chest non-tender, lungs clear, normal breath sounds Airway Class: II Pre-Sedation Airway Assessment Oral Cavity: Dental Abnormalities Able to Visualize Vocal Cords: No Short Thick Neck: No Hx of Sleep Apnea: Yes Smoking Status: Former Smoker Mallampati Classification: Class III ASA Classification: Class II Procedure Planning Contraindications-for Mod Sed: None Yes Notes The planned sedation has been discussed with the patient and consent obtained. I have identified the patient, determined the appropriateness of sedation and have assessed the patient immediately prior to the procedure. All medicine(s) and interventions are by my order.
[2016-12-29] MEDS ORDERED: HEPARIN SOD (PORCINE) 1000 UNIT/ML 10 ML VIAL ONE ×2 (13:58→14:49)
[2016-12-29] MEDS ORDERED: FENTANYL CITRATE INJ 50 MCG/1 ML 2 ML VIAL ONE ×2 (13:58→14:50)
[2016-12-29] MEDS ORDERED: NiCARDipine HCL INJ 2.5 MG/ML 10 ML AMP ONE (13:58)
[2016-12-29] MEDS ORDERED: MIDAZOLAM HCL 1 MG/ML 2ML VIAL ONE ×2 (13:58→14:36)
[2016-12-29] MEDS ORDERED: NITROGLYCERIN/D5W 100MCG/ML 20ML SYR ONE (13:59)
[2016-12-29] MEDS ORDERED: HydrALAZINE HCL 20 MG/ML VIAL ONE (14:54)
[2016-12-29] MEDS ORDERED: CLOPIDOGREL BISULFATE 300 MG TAB PO ONE (14:55)
--- NOTE | 2016-12-29 15:08 | Procedure Note ---
Post-Mod Sedation Assessment General Date of Moderate Sedation December 29, 2016. Vital Signs: Vital Signs Past 12 Hours Date Time Temp Pulse Resp B/P Pulse Ox O2 Delivery O2 Flow Rate FiO2 12/29/16 13:13 36.5 61 16 164/76 94 Room Air 12/29/16 11:43 36.8 60 20 167/76 96 Room Air 12/29/16 07:46 36.9 59 22 156/64 95 Room Air 12/29/16 07:33 95 Room Air 12/29/16 04:00 Room Air 12/29/16 03:26 36.5 61 21 148/68 95 Room Air Review - Discharge Criteria Vital Signs Stable: Yes Alert/Oriented/Conversant: Yes Returned to Baseline Mental St: Yes Nausea Absent/Minimal: Yes Pain/Discomfort/Absent/Minimal: Yes Normal/Baseline Respirations: Yes Active Bleeding?: No Pt Received D/C Instructions: N/A Prescriptions Given: None Specific Proced. D/C Criteria Distal Pulses Present (Cardiac: Yes Groin site assessed-Card Cath: N/A Voided Prior To Discharge: N/A Discharged Patients Adult Escort/Transportation: Yes
[2016-12-29] MEDS ORDERED: ACETAMINOPHEN 325 MG TAB PO PRN (15:15)
[2016-12-29] MEDS ORDERED: SODIUM CHLORIDE 0.9% 1000ML 1,000 ML IV SCH (16:00)
--- NOTE | 2016-12-29 16:27 | Cardiac Catheterization ---
Procedure Note Procedure Date December 29, 2016. Pre-Procedure Diagnosis Angina AUC Score 7 Post-Procedure Diagnosis Severe CAD, Successful PCI, Normal Intracardiac Pressures Procedure(s) Performed Coronary Angiography, Left Heart Cath, Drug Eluting Stent Textile Knitter Dr. Kwan Marine Pilot(s) Nika Estimated Blood Loss 24 Medication(s) Clopidogrel, Fentanyl, Heparin, Nicardipine, Nitroglycerin, Versed, Lidocaine 1% Summary of Findings Indication: Accelerating angina Access: 6Fr Right Radial Artery Catheters: [place], JL3.5, EBU 3.5 guide Findings: LM - Luminal irregularities LAD - Calcified proximally, 40-50% focal stenosis in the mid segment; 20-30% distals disease before wraps around apex; 1st diagonal small caliber vessel with diffuse 80-90% ostial stenosis. Circumflex - Moderate caliber, 80-90% proximal stenosis; OM2 with 40-50% proximal stenosis; distal circumflex very small vessel with luminal irregularities in AV groove. RCA - Dominant, mid segment RCA stent with 20-30% in-stent restenosis and 40-50 % stenosis just after stent; 30-40% distal RCA focal stenosis; R-PDA with 40-50 % mid stenosis RI - 20-30% ostial stenosis; 40% proximal stenosis. LVEDP - 17 -- PCI -- Antithrombotic therapy: Heparin, Clopidogrel Procedure: Left main cannulated with EBU 3.5 guide BMW wire passed across proximal circumflex lesion into distal OM2 Proximal circumflex lesion predilated with 2.0 compliant balloon Dilated lesion stented with 2.5 x 14 Resolute BO Stent post-dilated with 2.5 noncompliant balloon IC vasodilators administered for spasm Post procedure HIREN 3 flow, stent well expanded with minimal residual stenosis and no apparent cardiac complications. Arterial Closure: TR Band Summary: 1. Moderate to severe multivessel coronary artery disease - 80-90% proximal circumflex - Patent mid RCA stent with 40-50% stenosis just distal to stent - 80-90% ostial stenosis in small 1st diagonal (likely too small for stenting) 2. Normal intracardiac filling pressure 3. 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 Continue dual-antiplatelet therapy with ASA/Clopidogrel for 1 year Continue current antihypertensives Previously intolerant to statins Consult cardiac Rehab Hemodynamics Rest Ao: 161/75/113 Final Ao: 156/82/116 LV: 168/17 Recommendations PCI without planned CABG Specimens None Radiation Exposure (mGy) 3850 Contrast (mls) 210 Visipaque Fluids (cc crystalloids) 117 Drains None Anesthesia Moderate (Start 14:03, End 15:05) Procedural Complication(s) None Disposition PCU ACC Data Cardiac Status Clinical evaluation leading to the procedure CAD Presntation: Stable angina Anginal Classification: CCS III Heart Failure: No, NYHA Class: CCS I Cardiogenic Shock w/in 24Hrs: No Cardiac Arrest w/in 24Hrs: No Imaging studies past 6 months: No Standard Exercise Stress Test: No Stress Echocardiogram: No Stress Testing w/SPECT MPI: No Cardiac CTA: No Coronary Anatomy Dominant: Right Left Main (% Stenosis): Normal LAD (% Stenosis): Mid (40-50) D1 (% Stenosis): Ostial (80-90) Circumflex (% Stenosis): Proximal (80-90) OM2 (% Stenosis): Proximal (40-50) RCA (% Stenosis): Mid (40-50) R PDA (% Stenosis): Mid Diagnostic Physician's Name: Kane Kwan MD Status: Elective Closure Device Percutaneous Entry Location: Radial Closure Device: Radial Band Recommendations: PCI without planned CABG PCI Indication: Unstable Angina Lesion Segment Name: Proximal circumflex Culprit Artery: Yes Stenosis Prior to Rx (%): 80-90 Chronic Total Occlusion: No IVUS: No FFR: No Pre-Procedure HIREN Flow: 3 Previously Treated Lesion: No Lesion Complexity: Non-High/Non-C Lesion Length (mm): 12 Thrombus Present: No Bifurcation Lesion: No Guidewire Across Lesion: Yes Guidewire: Stenosis Post-Procedure (%): 0 Post-Procedure HIREN Flow: 3 Device(s) Deployed: Yes Type of Device(s): Resolute 2.5 x 14 BO Intraprocedure Events Significant Dissection: No Perforation: No
[2016-12-29] MEDS: VESICARE~ORDER AWAITING ACTION SCH (20:00)
[2016-12-29] MEDS: ASCORBIC ACID 500 MG TAB PO SCH (21:00)
[2016-12-29] MEDS: TAMSULOSIN HCL 0.4 MG CAP PO SCH (21:16)
[2016-12-29] MEDS: OMEGA-3 (PURIFIED FISH OIL) 1 GM CAP PO SCH (21:16)
[2016-12-29] MEDS: DILTIAZEM HCL 60 MG TAB PO SCH (21:16)
[2016-12-29] MEDS ORDERED: IV FLUIDS COMPLETED PRN (22:00)
[2016-12-30] MEDS: VESICARE~ORDER AWAITING ACTION SCH ×2 (00:05→08:00)
[2016-12-30] MEDS ORDERED: HydrALAZINE HCL 20 MG/ML VIAL ONE (00:27)
[2016-12-30] MEDS: HydrALAZINE HCL 20 MG/ML VIAL IV. PRN ×2 (00:30→04:33)
[2016-12-30] MEDS ORDERED: NURSING VERBAL MED ORDER ONE (00:30)
[2016-12-30 01:05] VITALS: BP 152/64; PULSE 78
[2016-12-30 04:29] VITALS: BP 179/84; PULSE 73; TEMP 36.8; O2SAT 97
[2016-12-30 05:45] LABS: BASO % 0.2 %; BASO ABS # 0.01 K/uL (0-0.2); COMPLETE YES; EOS % 2.3 %; HEMATOCRIT 40.9 % (42-52); IG% 0.3 %; LYMPH % 10.9 %; LYMPH ABS # 0.71 K/uL (1.2-3.4); MEAN CELL VOLUME 89.1 fL (80-100); MEAN CORPUSCULAR HGB CONC 35.9 g/dl (32-36); MEAN PLATELET VOLUME 9.8 fL (7.4-10.4); NEUT % 78.3 %; PLATELET COUNT 129 K/uL (130-400); RED BLOOD COUNT 4.59 M/uL (4.7-6.1); WHITE BLOOD COUNT 6.52 K/uL (4.8-10.8)
[2016-12-30 05:54] LABS: PROTHROMBIN TIME (PATIENT) 10.7 SECONDS (9.0-12.0)
[2016-12-30 06:13] LABS: BUN/CREATININE RATIO 22.9 (10-20); CREATININE 0.87 mg/dl (0.60-1.40); MAGNESIUM 2.1 mg/dl (1.8-2.4); POTASSIUM 3.6 mmol/L (3.5-5.1)
[2016-12-30] MEDS: LISINOPRIL/HCTZ 20/25MG TAB PO SCH (08:13)
[2016-12-30] MEDS: FINASTERIDE 5 MG TAB PO SCH (08:13)
[2016-12-30] MEDS: POTASSIUM CHLORIDE 20 MEQ TABCR PO SCH (08:13)
[2016-12-30] MEDS: METOPROLOL SUCC 50MG EXT REL TAB PO SCH (08:13)
[2016-12-30] MEDS: MULTIVITAMIN TAB PO SCH (08:13)
[2016-12-30] MEDS: PANTOprazole SOD 40 MG TAB PO SCH (08:13)
[2016-12-30] MEDS: GABAPENTIN 400 MG CAP PO SCH (08:13)
[2016-12-30 08:45] VITALS: BP 171/80; PULSE 79; TEMP 36.6; O2SAT 95
[2016-12-30] MEDS ORDERED: ASPIRIN 81 MG ECTAB PO SCH (09:00)
[2016-12-30] MEDS ORDERED: CLOPIDOGREL BISULFATE 75 MG TAB PO SCH (09:00)
[2016-12-30] MEDS ORDERED: PLV75 PO (10:23)
--- NOTE | 2016-12-30 10:28 | Discharge Instructions ---
Discharge Instructions Date of Service December 30, 2016. Admission Reason for Admission: Chest Pain, Dyspnea On Exertion Discharge Discharge Diagnosis / Problem: unstabel angina with stent Discharge Goals Goal(s): Diagnostic testing, Therapeutic intervention Activity Recommendations Activity Limitations: per Instructions/Follow-up section Lifting Limitations: gradually increase as tolerated . Current Hospital Diet Patient's current hospital diet: AHA Diet (Heart Healthy) Discharge Diet Recommended Diet: AHA Diet (Heart Healthy) Procedures Procedures Performed: left heart cath with circumflex stent Pending Studies Studies pending at discharge: no Medical Emergencies . Who to Call and When: Medical Emergencies: If at any time you feel your situation is an emergency, please call 911 immediately. . Non-Emergent Contact Non-Emergency issues call your: Distributed Generation Project Manager (one week) Call Non-Emergent contact if: temperature is above 101, your pain is unusual for you . . "Provider Documentation" section prepared by Doug Moe. . VTE Core Measure Inpt VTE Proph given/why not?: Unfractionated heparin SQ, SCD's
--- NOTE | 2016-12-30 10:29 | Discharge Instructions ---
Discharge Instructions Procedure Procedure Date: December 30, 2016. Reason for Visit: Chest Pain, Dyspnea On Exertion. Discharge Discharge Date: December 30, 2016. Discharge Diagnosis: left circumflex artery stent Problem List: Medical Problems: (1) Abnormal EKG Status: Acute (2) Chest pain Status: Acute (3) Dyspnea on exertion Status: Acute (4) Elevated troponin Status: Acute Last Recorded Wt (Kilograms): 129.600 Anesthesia Post Anesthesia Instructions: If you have had General Anesthesia or IV Sedation: * Do not drive today. * Resume driving when surgeon permits. * Do not make important decisions or sign legal documents today. * Call surgeon for: 1. Temperature elevations greater than 101 degrees F. 2. Uncontrollable pain. 3. Excessive bleeding. 4. Persistent nausea and vomiting. 5. Medication intolerance (nausea, vomiting or rash). * For nausea and vomiting use only clear liquids such as: tea, soda, bouillon until nausea subsides, then gradually increase diet as tolerated. * If you have any concerns or questions, call your surgeon's office. If physician is unavailable and it is an emergency, call 911 or go to the nearest emergency room. Instructions Activity Recommendations: lifting limitation (limit lifting with left hand and exertion until seen in follow up by Dr Kwan) Recommended Home Diet: resume previous diet Allergies: Coded Allergies: Penicillins (Verified Allergy, Unknown, RASH, 12/28/16) Statins (Verified Adverse Reaction, Unknown, "WEAK", 12/28/16) Follow Up [facility] Recommendations: Call your doctor if: * Temperature above 101 degrees * Pain not relieved by pain medicine ordered * There is increased drainage or redness from any incision * You have any unanswered questions or concerns. Your Doctors Instructions noted above were prepared by provider Doug Moe. Patient Signature Section: Patient Instructions Signature Page Dominique Interiano Patient (or Guardian) Signature/Date: I have read and understand the instructions given to me by my caregivers. Caregiver/RN/Doctor Signature/Date: The above-named patient and/or guardian has received patient instructions on this date. + Original Patient Signature Page (only) stays with chart. Please make copy for patient.
[2016-12-30 11:40] VITALS: BP 166/81; PULSE 84; TEMP 37.3; O2SAT 93
[2016-12-30 14:07] VITALS: BP 166/81; PULSE 84; TEMP 37.3; O2SAT 93
--- NOTE | 2016-12-30 14:07 | CARDIOLOGY PROGRESS NOTE ---
DATE: 12/30/2016 SUBJECTIVE: The patient was seen by me today in his telemetry room. Since his interventional procedure yesterday, he has had no further episodes of chest or arm discomfort. No such symptoms at rest or with walking in the luis. No dyspnea at rest or with walking in the luis. He did not sleep well last night secondary to not having his usual CPAP machine with him. He does feel fatigued today because he did not sleep much last night. No palpitations, lightheadedness, or syncope. No abdominal pain or nausea. No leg pain. No bleeding complaints. No fevers or chills. No skin rash complaints. MEDICATIONS: Metoprolol succinate ER 50 mg b.i.d., vitamin C 500 mg at bedtime, diltiazem 60 mg at bedtime, fish oil 1 gram at bedtime, tamsulosin 0.4 mg at bedtime, finasteride 5 mg daily, lisinopril/HCTZ 20/25 daily, multivitamin 1 daily, pantoprazole 40 mg daily, potassium 20 mEq daily, clopidogrel 75 mg daily, aspirin 81 mg daily, gabapentin 800 mg t.i.d., and several p.r.n. medications. ALLERGIES AND ADVERSE DRUG REACTIONS: PENICILLIN AND STATINS. PHYSICAL EXAMINATION: GENERAL: The patient is sitting on the side of his bed. No distress. VITAL SIGNS: This morning with oral temperature 36.6, pulse 79, blood pressure 171/80, and pulse oximetry on room air 95%. NECK: No jugular venous distention. LUNGS: Normal respiratory effort. Clear. No rales or wheezes. HEART: Regular rate and rhythm. S1 and S2 normal. No S3 or S4. 2/6 systolic murmur at the second right intercostal space and left upper sternal border. No diastolic murmur or rub. ABDOMEN: Soft. Nontender. No palpable masses or organomegaly. EXTREMITIES: Right radial catheterization site without bleeding or hematoma. Nontender. Right radial pulse palpable. No evidence of arterial insufficiency in the right hand. LABORATORY DATA: WBC this morning 6.52. Hemoglobin 14.7, hematocrit 40.9, and platelet count 129. Metabolic profile -- sodium 141, potassium 3.6, chloride 108, carbon dioxide 26, BUN 20, creatinine 0.87, random glucose 122, and magnesium 2.1. Troponin I this morning 0.678. DIAGNOSTIC STUDIES: Electrocardiogram today with sinus rhythm with first degree AV block, right bundle branch block, and left intrafascicular block. No ischemic ST or T-wave abnormalities. ASSESSMENT: 1. Status post deployment of a Medtronic Resolute 2.5 x 14-mm drug-eluting stent proximal left circumflex stenosis on 12/29/2016. No post-procedure anginal symptoms. Electrocardiogram without any ischemic ST or T-wave abnormalities. Troponin I mildly elevated. This value is within the range of acceptable cardiac enzyme elevations after PCI procedure. 2. No vascular complications. 3. Mild systolic hypertension. 4. No signs or symptoms of pulmonary vascular congestion. 5. Minimal peripheral edema on exam today. Trace pretibial edema. 6. Stable renal function and hemoglobin post-PCI. Mildly decreased platelet count. 7. No symptoms of adverse reactions to current medications. RECOMMENDATIONS AND PLAN: 1. Discharge the patient home. 2. Dual antiplatelet therapy with aspirin and clopidogrel. Dual antiplatelet therapy ideally for a minimum of 6 months. Preferably a year. Aspirin therapy indefinitely. 3. Continue YADY inhibitor and beta brien therapy. 4. Statin therapy contraindicated because of prior significant adverse reactions to statins in him. 5. Cardiology clinic followup in 2-4 weeks. 6. Continue medical followup with his primary care provider, Dr. Kane Granados.
--- NOTE | 2016-12-30 14:16 | Discharge Summary ---
Discharge Summary Date of Service December 30, 2016. Discharge Summary Admission Date: December 29, 2016 at 20:14 Discharge Date: December 30, 2016 Discharge Disposition: Home Principal Diagnosis: unstable angina, left circumflex stent, INTOLERANT OF STATIN MEDICATIONS Immunizations: Have You Had Influenza Vaccine: No History of Tetanus Vaccine?: Yes Tetanus Immunization Date: Dec 01, 1999 History of Pneumococcal: No History of Hepatitis B Vaccine: No Consultations: Luis Kwan performed circumflex stent with good results Medication Reconciliation New Medications: Clopidogrel Bisulfate (Clopidogrel) 75 Mg Tab 75 MG PO QAM, #90 TAB 3 Refills Continued Medications: Ascorbic Acid (Vitamin C) 500 Mg Tab 1 TAB PO HS Aspirin (Aspirin Ec) 325 Mg Tab 325 MG PO QAM Diltiazem Hcl (Cardizem) 60 Mg Tab 60 MG PO HS, TAB Finasteride (Proscar) 5 Mg Tab 5 MG PO QAM, TAB Fish Oil (Montreal-3) 1 Ea Cap 1 CAP PO HS, CAP Gabapentin (Neurontin) 400 Mg Cap 800 MG PO TID Aznhuzqqkep-Euekrsrgfgo-Wdy C- (Glucosamine Chondroitin) 1 Tab Tab 1 TAB PO BID Hctz/Lisinopril (Lisinopril/Hctz 20/25 Mg) 1 Ea Tab 1 TAB PO QAM, TAB Metoprolol Succ (Toprol Xl) (Toprol-Xl) 50 Mg Tabcr 50 MG PO BID Multivitamin (Multivitamin) Tab 1 TAB PO QAM Niacin Ext Rel (Niaspan Ext Rel) 750 Mg Tabcr 750 MG PO BID, TAB Omeprazole (Prilosec) 20 Mg Capcr 20 MG PO QAM Potassium Chloride (K-Tab) 20 Meq Tab 20 MEQ PO QAM Solifenacin (Vesicare) 10 Mg Tab 10 MG PO HS, TAB Tamsulosin Hcl (Flomax) 0.4 Mg Cap 0.4 MG PO HS, CAP Tramadol (Ultram) 50 Mg Tab 50 MG PO Q4HR PRN for Pain MAX OF 6 TABS PER DAY. Discharge Exam Review of Systems: Constitutional: No chills, No fever Respiratory: No cough, No sputum, No wheezing Cardiovascular: No chest pain, No orthopnea Musculoskeletal: No joint pain, No muscle pain Genitourinary - Male: No dysuria, No hematuria Physical Exam: General Appearance: WD/WN, no apparent distress Eyes: PERRL, EOMI Neck: supple, no JVD Respiratory/Chest: chest non-tender, lungs clear, normal breath sounds Cardiovascular: regular rate, rhythm, no murmur, normal peripheral pulses Abdomen / GI: normal bowel sounds, non tender, soft Hospital Course 71 M with known CAD, presents with two weeks of CP and CAMPBELL, found to have stenosis of circumflex artery BO applied on left heart cath, stent applied, and has done well Coronary artery disease, s/p stent will have on plavix, cannot tolerate statin, pt opts for fishoil and niacin, aspirin 325 mg diltiazem, lisinopril/HCTZ 20/ 25 metoprolol will follow up with Dr Fraser GERD-pantoprazole 40 mg Peripheral neuropathy-- gabapentin BPH-- finasteride 5 mg and tamsulosin 0.4 mg Bladder spasm- Vesicare 10 mg Hypercholesterolemia- Niaspan extended release 750 mg by mouth and fish oil 1 Total Time Spent: Greater than 30 minutes This includes examination of the patient, discharge planning, medication reconciliation, and communication with other providers. Discharge Instructions Please refer to the electronic Patient Visit Report (Discharge Instructions) for additional information.
--- NOTE | 2016-12-30 14:54 | ECHOCARDIOGRAM REPORT ---
*NOTICE TO RECEIVING [employer] This information is strictly Confidential and protected under [place] law. [place] law prohibits you from making any further disclosure of this information unless further disclosure is expressly permitted by the written consent of the person to whom it pertains or is authorized by law. A general authorization for the release of medical or other information is not sufficient for this purpose. Hospital accepts no responsibility if the information is made available to any other person, INCLUDING THE PATIENT. Interpretation Summary * Name: IWONA WOODARD Study Date: 12/30/2016 08:55 AM BP: 171/80 mmHg * Patient Location: C.2T\S\S244\S\1 HR: 79 * : 1945 (M/d/yyyy) Gender: Male Height: 69 in * Age: 71 yrs Ethnicity: CA Weight: 291 lb * Ordering Physician: Sammy Lynn * Referring Physician: Self, Referred * Performed By: Chata Esqueda RDCS * * Reason For Study: Chest pain * BSA: 2.4 m2 * Hyperdynamic left ventricular systolic function. * Moderate concentric left ventricular hypertrophy. * Left ventricular diastolic dysfunction. * Mild left atrial dilatation. * MIld aortic stenosis. * No significant valvular regurgitation. Procedure Details * A complete two-dimensional transthoracic echocardiogram was performed (2D, M-mode, Doppler and color flow Doppler). * A contrast injection of Definity was performed to improve assessment of LV function. * Contrast was injected into an intravenous site in the left arm. * One vial of Definity ultrasound contrast was diluted in normal saline to a total volume of 10 ml. A total of '2' ml of solution was administered during imaging. * Lot # [id number] of Definity utilized for procedure. * Expiration date DEC 13. * The attending nurse who injected the contrast agent was Shaneka North RN. Left Ventricle * The left ventricle is normal in size. * There is moderate concentric left ventricular hypertrophy. * Ejection Fraction = >70 %. * The left ventricle is hyperdynamic. * A full diastolic examination was done with clinical findings of Class I diastolic dysfunction. * No regional wall motion abnormalities noted. Right Ventricle * The right ventricle is normal in size and function. Atria * The left atrium is mildly dilated. * Right atrium not well visualized. Mitral Valve * There is mild mitral annular calcification. * There is no mitral valve stenosis. * Significant mitral regurgitation is absent. Tricuspid Valve * The tricuspid valve is not well visualized. * Significant tricuspid regurgitation is absent. * Right ventricular systolic pressure is normal. Aortic Valve * The aortic valve is trileaflet. * Aortic valve sclerosis with mild stenosis. * Mild valvular aortic stenosis. * No aortic regurgitation is present. Pulmonic Valve * The pulmonic valve is not well visualized. * The pulmonary valve is inadequately visualized, but the Doppler data is adequate for interpretation. * There is no pulmonic valvular stenosis. * There is no significant pulmonary regurgitation. Great Vessels * There is aortic root sclerosis/calcification. * The aortic root is normal size. Pericardium/Pleural * There is no pericardial effusion. Great Vessels * Normal inferior vena cava diameter and respiratory variation suggests normal central venous pressure. MMode 2D Measurements and Calculations IVSd 1.5 cm LVIDd 3.7 cm LVIDs 2.3 cm LVPWd 1.5 cm IVS/LVPW 0.98 FS 38.6 % EDV(Teich) 58.6 ml ESV(Teich) 17.7 ml EF(Teich) 69.7 % EDV(cubed) 51.2 ml ESV(cubed) 11.9 ml EF(cubed) 76.8 % LV mass(C)d 215.3 grams LV mass(C)dI 88.9 grams/m\S\2 SV(Teich) 40.9 ml SI(Teich) 16.9 ml/m\S\2 SV(cubed) 39.3 ml SI(cubed) 16.2 ml/m\S\2 Ao root diam 2.8 cm Ao root area 6.1 cm\S\2 LA dimension 4.2 cm asc Aorta Diam 3.0 cm LA/Ao 1.5 LVAd ap4 30.0 cm\S\2 LVLd ap4 7.5 cm EDV(MOD-sp4) 99.8 ml EDV(sp4-el) 101.3 ml LVAs ap4 14.4 cm\S\2 LVLs ap4 6.1 cm ESV(MOD-sp4) 27.6 ml ESV(sp4-el) 29.1 ml EF(MOD-sp4) 72.3 % EF(sp4-el) 71.3 % LVAd ap2 26.8 cm\S\2 LVLd ap2 7.8 cm EDV(MOD-sp2) 75.5 ml EDV(sp2-el) 78.4 ml LVAs ap2 12.1 cm\S\2 LVLs ap2 5.5 cm ESV(MOD-sp2) 22.0 ml ESV(sp2-el) 22.6 ml EF(MOD-sp2) 70.9 % EF(sp2-el) 71.2 % LVLd %diff 3.1 % EDV(MOD-bp) 86.3 ml LVLs %diff -10.71 % ESV(MOD-bp) 25.1 ml EF(MOD-bp) 70.9 % SV(MOD-sp4) 72.2 ml SI(MOD-sp4) 29.8 ml/m\S\2 SV(MOD-sp2) 53.6 ml SI(MOD-sp2) 22.1 ml/m\S\2 SV(MOD-bp) 61.2 ml SI(MOD-bp) 25.3 ml/m\S\2 SV(sp4-el) 72.2 ml SI(sp4-el) 29.8 ml/m\S\2 SV(sp2-el) 55.8 ml SI(sp2-el) 23.0 ml/m\S\2 Doppler Measurements and Calculations MV E max nikhil 58.1 cm/sec MV A max nikhil 76.6 cm/sec MV E/A 0.76 MV dec time 0.27 sec Ao V2 max 246.5 cm/sec Ao max PG 24.3 mmHg Ao V2 mean 157.5 cm/sec Ao mean PG 11.8 mmHg Ao V2 VTI 34.4 cm SV(Ao) 210.9 ml SI(Ao) 87.0 ml/m\S\2 PA V2 max 102.4 cm/sec PA max PG 4.2 mmHg PA acc slope 1351.1 cm/sec\S\2 PA acc time 0.07 sec TR max nikhil 156.5 cm/sec PA pr(Accel) 47.8 mmHg
[2017-03-09] MEDS ORDERED: ASPI-435 PO (10:06)
[2017-03-09] MEDS ORDERED: DTRSR/10 PO (10:06)
[2017-03-09] MEDS ORDERED: PROB1TAB16 PO (10:06)
[2017-03-09] MEDS ORDERED: CLOP1TAB5 PO (10:06)
[2017-03-09] MEDS ORDERED: CHOL1000 PO (10:06)
== END 2016-12-30 14:09 | disposition home or self-care (01) | DRG 247 ==
LOC: ENRESERVTM → ENRESERVDT → C.EDB 16:55 → C.2T 20:13 → OBSVTOIN 12-29 20:14
PROVIDERS: ADMIT Hospitalist; ATTEND Hospitalist
PROC: B215YZZ Fluoroscopy of Left Heart using Other Contrast (ICD-10-PCS; principal; 2016-12-29 15:05)
PROC: 027034Z Dilation of Coronary Artery, One Artery with Drug-eluting Intraluminal Device, Percutaneous Approach (ICD-10-PCS; principal; 2016-12-29 15:05)
PROC: B211YZZ Fluoroscopy of Multiple Coronary Arteries using Other Contrast (ICD-10-PCS; principal; 2016-12-29 15:05)
PROC: 4A023N7 Measurement of Cardiac Sampling and Pressure, Left Heart, Percutaneous Approach (ICD-10-PCS; principal; 2016-12-29 15:05)
DX: I25.110 Atherosclerotic heart disease of native coronary artery with unstable angina pectoris (principal); I10 Essential (primary) hypertension; I71.2 Thoracic aortic aneurysm, without rupture; D69.6 Thrombocytopenia, unspecified; K21.9 Gastro-esophageal reflux disease without esophagitis; G62.9 Polyneuropathy, unspecified; N40.0 Benign prostatic hyperplasia without lower urinary tract symptoms; N32.89 Other specified disorders of bladder; E78.00 Pure hypercholesterolemia, unspecified; E78.5 Hyperlipidemia, unspecified; G89.29 Other chronic pain; M54.9 Dorsalgia, unspecified; G47.33 Obstructive sleep apnea (adult) (pediatric); Z95.5 Presence of coronary angioplasty implant and graft; Z99.89 Dependence on other enabling machines and devices; Z87.891 Personal history of nicotine dependence; Z79.82 Long term (current) use of aspirin; Z79.899 Other long term (current) drug therapy; Z79.891 Long term (current) use of opiate analgesic

== ENCOUNTER → 2017-05-03 | Day surgery (SDC) | payer OTHER ==
[2017-03-09 10:10] VITALS: Ht 175.3 cm; Wt 131.8 kg
[~2017-05-03] VITALS: Ht 175.3 cm; Wt 131.8 kg
[~2017-05-03] MED LIST changes: +ASPI-435 PO; -ASPI325T39 PO; +CHOL1000 PO; +CLOP1TAB5 PO; -CRD60 PO; -CYAN10004 PO; +DILT40TA PO; +DTRSR/10 PO; -FERR1TAB23 PO; +IOPAMIDOL INJ 61% 15 ML VIAL ONE; +LIDOCAINE HCL 1% MPF 5 ML VIAL ONE; -MISCCAP80 PO; -POTA-335 PO; +POTA1TAB97 PO; +PROB1TAB16 PO; -PYRI100T4 PO; +SODIUM CHLORIDE 0.9% INJ 10 ML VIAL INJ ONE; -SOLI10TA2 PO; -VITBC PO
--- NOTE | 2017-05-03 14:05 | History & Physical Bridge - SC ---
H&P Re-Evaluation Bridge Note: I have examined the patient, reviewed the History & Physical and in the interval since the performance of the History & Physical I have noted the following changes of clinical significance: No changes noted
[2017-05-03 14:26] VITALS: TEMP 36.4
--- NOTE | 2017-05-03 14:34 | Discharge Instructions ---
Discharge Instructions Date of Service May 03, 2017. Visit Reason for Visit: Lumbar Spinal Stenosis Discharge Discharge Diagnosis / Problem: low back with leg pain Discharge Goals Goal(s): Decrease discomfort, Improve function Medications Stopped Medications Name(s): does not take asa anymore. Plavix not stopped last dose today. Activity Recommendations Activity Limitations: resume your previous activity Anesthesia . Post Anesthesia Instructions: If you have had General Anesthesia or IV Sedation: * Do not drive today. * Resume driving when surgeon permits. * Do not make important decisions or sign legal documents today. * Call surgeon for: 1. Temperature elevations greater than 101 degrees F. 2. Uncontrollable pain. 3. Excessive bleeding. 4. Persistent nausea and vomiting. 5. Medication intolerance (nausea, vomiting or rash). * For nausea and vomiting use only clear liquids such as: tea, soda, bouillon until nausea subsides, then gradually increase diet as tolerated. * If you have any concerns or questions, call your surgeon's office. If physician is unavailable and it is an emergency, call 911 or go to the nearest emergency room. . Diet Recommendations Recommended Home Diet: resume previous diet Procedures Procedures Performed: LUMBAR EPIDURAL STEROID INJECTION Pending Studies Studies pending at discharge: no Medical Emergencies . Who to Call and When: Medical Emergencies: If at any time you feel your situation is an emergency, please call 911 immediately. . Non-Emergent Contact Non-Emergency issues call your: Specialist . . "Provider Documentation" section prepared by Jarad Flores. .
[2017-05-03 14:45] VITALS: BP 151/73; PULSE 62; O2SAT 94
--- NOTE | 2017-05-03 14:56 | OPERATIVE REPORT ---
DATE OF OPERATION: 05/03/2017 PREOPERATIVE DIAGNOSIS: Lumbar spinal stenosis with neurogenic claudication. POSTOPERATIVE DIAGNOSIS: Same. PROCEDURE: Caudal epidural steroid injection under fluoroscopic guidance. INDICATIONS: The patient is a 71-year-old white male who had an epidural injection done in January. He did fantastic take following the injection; however, the effect has worn off and is problematic to him. He presents today for an epidural injection. He did take his Plavix today so the injection will be given via a caudal route and not an intralaminar approach because of risk of an epidural hematoma. PHYSICAL EXAMINATION: GENERAL: Pleasant male seated comfortably. MUSCULOSKELETAL: Lower extremities were examined. He had no focal weakness. Decreased sensation subjectively in the S1 dermatomes bilaterally. Negative seated straight leg raises. CONSENT: Verbal and written consent was obtained from the patient. Risks and benefits were reviewed. Risks include but are not limited to epidural abscess, epidural hematoma, allergic reaction, dural puncture. The patient wishes to proceed. PROCEDURE: The patient was taken back to the special procedures room of [facility] where he was maintained in a prone position. Backside was cleansed with Betadine x3 and a dry sterile dressing was applied. Fluoroscope was used to identify the sacral hiatus and the overlying skin was anesthetized with 4 mL of lidocaine 1% with a 25 gauge 1.5-inch needle. A 25 gauge 3.5 inch spinal needle was then directed into the sacral hiatus and advanced into the sacral canal under lateral fluoroscopic guidance. He then underwent injection after negative aspiration of 4 mL of preservative free sodium chloride and 40 mg of Depo-Medrol. Injection was well tolerated. DISPOSITION: 1. The patient is taken out into the discharge recovery area where he will be discharged home once discharge criteria have been met. 2. Follow up in the [facility] office in 2-4 weeks. I attest to the content of the Intraoperative Record and any orders documented therein. Any exception s are noted below.
== END | disposition home or self-care (01) ==
LOC: X.SURG 13:20
PROVIDERS: ATTEND Physical Medicine & Rehabilitation
DX: M48.06 Spinal stenosis, lumbar region (principal)

== ENCOUNTER → 2017-05-24 | Outpatient (CLI) | payer OTHER ==
[~2017-05-24] MED LIST changes: -ASPI-435 PO; -IOPAMIDOL INJ 61% 15 ML VIAL ONE; -LIDOCAINE HCL 1% MPF 5 ML VIAL ONE; -SODIUM CHLORIDE 0.9% INJ 10 ML VIAL INJ ONE
== END | disposition home or self-care (01) ==
LOC: C.RDSM 12:29
PROVIDERS: ATTEND Physical Medicine & Rehabilitation Sports Medicine
DX: M25.561 Pain in right knee (principal); M25.562 Pain in left knee

== ENCOUNTER → 2017-08-09 | Outpatient (CLI) | payer OTHER ==
--- NOTE | 2017-08-09 14:02 | DIAGNOSTIC IMAGING REPORT ---
CT OF THE CHEST WITHOUT IV CONTRAST CLINICAL HISTORY: Thoracic aortic aneurysm. COMPARISON STUDY: Chest CT March 16, 2009 and June 29, 2016. CT DOSE: 1150.22 mGy.cm TECHNIQUE: Axial images of the chest were obtained without IV contrast. Images were reviewed in the axial, sagittal, and coronal planes. IV contrast was not administered for this examination. A dose lowering technique was utilized adhering to the principles of ALARA. FINDINGS: The size of the heart is normal. There is extensive coronary artery calcification. There is no pericardial effusion. No enlarged thoracic lymph nodes are noted. Note is again made of an aneurysm arising from the inferior aspect of the distal aortic arch that measures 3.7 x 3.3 cm. This has peripheral calcification. This is unchanged since CT of June 29, 2016. There is no evidence for rupture. This is at the expected location of the ductus arteriosus. Communication with the pulmonary artery is not shown on prior contrast enhanced CT. Central airways are patent. There is mild multifocal subpleural opacity as well as scattered minimal tree-in-bud nodules within the lungs which are new since prior CT. The findings favor a mild infectious process. There is no cavitation. No pneumothorax or pleural effusion is present. Central airways are patent. Bony thorax is unremarkable. 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 A suspected right renal cyst is partially imaged. There is a 2.3 cm lateral segment hepatic cyst. IMPRESSION: 1. 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 No rupture. 2. Mild scattered subpleural groundglass opacities and scattered tree-in-bud nodules within the lungs which favor a mild infectious process. Electronically signed by: Daniel Kumar M.D. 08/09/2017 2:00 PM Dictated Date/Time: 08/09/2017 1:48 PM
== END | disposition home or self-care (01) ==
LOC: C.CTS 13:08
PROVIDERS: ATTEND Surgery
DX: I71.2 Thoracic aortic aneurysm, without rupture (principal)

== ENCOUNTER → 2017-08-16 | Outpatient (CLI) | payer OTHER | END | disposition home or self-care (01) | LOC: C.LAB 10:35 | PROVIDERS: ATTEND Urology | DX: N40.0 Benign prostatic hyperplasia without lower urinary tract symptoms (principal) ==

== ENCOUNTER 2017-12-16 00:03 | Emergency (ER) | payer OTHER ==
[~2017-12-16] VITALS: Ht 177.8 cm; Wt 125.0 kg
[~2017-12-16 00:03] MED LIST changes: +GABA-1220 PO; -GABA1CAP5 PO; -METO50TA7 PO; +METO50TA8 PO; +SODIUM CHLORIDE 0.9% 1000ML 1,000 ML IV SCH
--- NOTE | 2017-12-16 00:20 | DIAGNOSTIC IMAGING REPORT ---
CT SCAN OF THE BRAIN WITHOUT IV CONTRAST CLINICAL HISTORY: Strokelike symptoms. COMPARISON STUDY: CT of the brain dated 11/22/2010. TECHNIQUE: Unenhanced axial CT scan of the brain is performed from the vertex to the skull base. A dose lowering technique was utilized adhering to the principles of ALARA. The patient was scanned twice due to motion artifact. CT DOSE: 1228.53 mGy.cm FINDINGS: Brain parenchyma: There is a large hemorrhage centered in the right basal ganglia which measures approximately 3.5 x 3 cm. There is surrounding edema, as well as intraventricular extension, with blood pressure and identified within the right lateral ventricle. There is no midline shift. No additional foci of hemorrhage are identified, and there is no evidence of acute territorial ischemia by CT criteria. There are age-related involutional changes noting mild subcortical and periventricular microangiopathic change. No extra-axial fluid collection is seen. Ventricles, sulci, cisterns: Prominent secondary to involutional change. See above. Intracranial vasculature: There is atherosclerotic calcification of the cavernous carotid and vertebral arteries. Calvarium: Unremarkable. Sinuses and mastoids: There is trace mucosal thickening in the frontal sinuses. The remaining visualized paranasal sinuses are clear. The mastoid air cells are well pneumatized. Orbits: The bony orbits are grossly intact. IMPRESSION: 1. There is a large hemorrhage centered in the right basal ganglia with surrounding edema as detailed above. 2. There is intraventricular extension of hemorrhage, with blood products identified in the right lateral ventricle. 3. No additional foci of hemorrhage are identified. There is no midline shift or evidence of acute territorial ischemia by CT criteria. Findings were called to Dr. Shepherd in the Emergency Department at the time of interpretation on 12/16/2017. Electronically signed by: Junior Moon M.D. 12/16/2017 12:19 AM Dictated Date/Time: 12/16/2017 12:13 AM
[2017-12-16] MEDS ORDERED: HydrALAZINE HCL 20 MG/ML VIAL IV. STA (00:23)
[2017-12-16 00:28] VITALS: Ht 177.8 cm; Wt 125.0 kg
[2017-12-16] MEDS ORDERED: ASPI81TA28 PO (00:29)
[2017-12-16] MEDS ORDERED: SOLI10TA2 PO (00:29)
[2017-12-16 00:30] VITALS: O2SAT 98
[2017-12-16 00:52] LABS: PTT PATIENT 25.8 SECONDS (21.0-31.0)
[2017-12-16 00:55] LABS: CALCIUM 9.4 mg/dl (8.5-10.1); CREATININE 1.08 mg/dl (0.60-1.40); POTASSIUM 3.8 mmol/L (3.5-5.1)
[2017-12-16 01:00] LABS: CKMB 0.8 ng/ml (0.5-3.6)
[2017-12-16 01:18] LABS: HEMATOCRIT 41.5 % (42-52); MEAN CELL VOLUME 89.1 fL (80-100); MEAN CORPUSCULAR HEMOGLOBIN 32.2 pg (25-34); MEAN CORPUSCULAR HGB CONC 36.1 g/dl (32-36); MEAN PLATELET VOLUME 9.9 fL (7.4-10.4); PLATELET COUNT 151 K/uL (130-400); RED CELL DISTRIBUTION WIDTH CV 13.2 % (11.5-14.5); RED CELL DISTRIBUTION WIDTH SD 42.7 fL (36.4-46.3); WHITE BLOOD COUNT 6.28 K/uL (4.8-10.8)
[2017-12-16 01:42] VITALS: BP 190/84; PULSE 77; TEMP 36.9; O2SAT 94
--- NOTE | 2017-12-16 01:45 | EMERGENCY ROOM VISIT NOTE ---
History Report prepared by Carmen: Fernando Henry Under the Supervision of: Dr. Epifanio Shepherd D.O. First contact with patient: 23:53 Chief Complaint: STROKE SYMPTOMS Stated Complaint: STROKE ALERT History of Present Illness The patient is a 72 year old male who presents to the Emergency Room with complaints of an episode of stroke-like symptoms occurring an hour ago. Per EMS , the patient almost fell tonight but was caught by his before he could fall. She notes that the patient did not hit his head. She reports that the patient started experiencing left sided weakness, a left facial droop, decreased sensation, and a headache. She states that the patient's blood sugar was 138 en route. She notes that the patient took one 81mg tablet of aspirin today as part of his daily medication. She reports that the patient rates his pain as a 4/10. Per , the patient had a tooth extracted three days ago but was not complaining of any prior symptoms. Source of History: spouse/significant other (), EMS Onset: an hour ago Position: head Symptom Intensity: 4/10 Quality: other (stroke-like symptoms) Timing: other (an episode) Associated Symptoms: + headache Note: Per EMS, the patient complains of left sided weakness, a left facial droop, and decreased sensation. She states that the patient had a blood sugar level of 138. Review of Systems See HPI for pertinent positives & negatives. A total of 10 systems reviewed and were otherwise negative. Past Medical & Surgical Medical Problems: (1) Coronary artery disease Surgical Problems: (1) H/O tooth extraction Family History Diabetes mellitus Heart disease Hypertension Social History Smoking Status: Former Smoker Drug Use: none Marital Status: Housing Status: lives with family Occupation Status: retired Current/Historical Medications Scheduled Ascorbic Acid (Vitamin C), 1 TAB PO HS Aspirin (Aspirin Ec), 81 MG PO QAM Clopidogrel Bisulfate (Plavix), 75 MG PO QAM Diltiazem Hcl (Cardizem), 60 MG PO HS Finasteride (Proscar), 5 MG PO QAM Fish Oil (Floyd-3), 1 CAP PO HS Gabapentin (Neurontin), 800 MG PO TID Hcfgguargib-Yrnbwcntuzy-Gqk C- (Glucosamine Chondroitin), 1 TAB PO AMHS Hctz/Lisinopril (Lisinopril/Hctz 20/25 Mg), 1 TAB PO QAM Metoprolol Succ (Toprol Xl) (Toprol-Xl), 50 MG PO AMHS Multivitamin (Multivitamin), 1 TAB PO QAM Niacin Ext Rel (Niaspan Ext Rel), 2 TABS PO HS Omeprazole (Prilosec), 20 MG PO QAM Oxybutynin Chloride (Oxybutynin Chloride ER), 1 TAB PO QAM Potassium Chloride (K-Tab), 20 MEQ PO QAM Probiotic Product (Probiotic), 1 TAB PO QAM Solifenacin (Vesicare), 10 MG PO QAM Tamsulosin Hcl (Flomax), 0.8 MG PO HS Scheduled PRN Tramadol (Ultram), 100 MG PO TID PRN for Pain Allergies Coded Allergies: Penicillins (Verified Allergy, Unknown, RASH, 12/16/17) Statins (Verified Adverse Reaction, Unknown, "WEAK", 12/16/17) Physical Exam Vital Signs Date Time Temp Pulse Resp B/P (MAP) Pulse Ox O2 Delivery O2 Flow Rate FiO2 12/16/17 01:20 77 18 190/84 94 Room Air 12/16/17 01:08 78 30 174/66 95 Room Air 12/16/17 00:43 79 14 165/84 94 Room Air 12/16/17 00:31 36.9 76 22 210/74 97 Room Air 12/16/17 00:30 98 Room Air 12/16/17 00:21 69 12/16/17 00:17 36.9 81 14 210/74 92 Room Air Physical Exam VITAL SIGNS: were reviewed as above. GENERAL:Non-toxic in appearance. SKIN: Warm dry and pink. HEAD: Normocephalic and atraumatic. OROPHARYNX: Is clear and moist NECK: Supple without lymphadenopathy or meningismus. LUNGS: clear. HEART: Regular rate and rhythm. ABDOMEN: Soft and nontender. EXTREMITIES: Warm and well perfused. NEUROLOGICALLY: Awake alert and oriented without focal deficit. Cranial nerves 2 -12 are intact. There is no pronator drift. Cerebellar testing is within normal limits. There is no nystagmus. Left facial droop. Speech is slurred. Vision is grossly normal. Left arm and leg paralysis. MUSCULOSKELETAL: Good muscle tone. No evidence of trauma. Medical Decision & Procedures ER Provider Diagnostic Interpretation: Radiology results as stated below per my review and radiologist interpretation: CT SCAN OF THE BRAIN WITHOUT IV CONTRAST FINDINGS: Brain parenchyma: There is a large hemorrhage centered in the right basal ganglia which measures approximately 3.5 x 3 cm. There is surrounding edema, as well as intraventricular extension, with blood pressure and identified within the right lateral ventricle. There is no midline shift. No additional foci of hemorrhage are identified, and there is no evidence of acute territorial ischemia by CT criteria. There are age-related involutional changes noting mild subcortical and periventricular microangiopathic change. No extra-axial fluid collection is seen. Ventricles, sulci, cisterns: Prominent secondary to involutional change. See above. Intracranial vasculature: There is atherosclerotic calcification of the cavernous carotid and vertebral arteries. Calvarium: Unremarkable. Sinuses and mastoids: There is trace mucosal thickening in the frontal sinuses. The remaining visualized paranasal sinuses are clear. The mastoid air cells are well pneumatized. Orbits: The bony orbits are grossly intact. IMPRESSION: 1. There is a large hemorrhage centered in the right basal ganglia with surrounding edema as detailed above. 2. There is intraventricular extension of hemorrhage, with blood products identified in the right lateral ventricle. 3. No additional foci of hemorrhage are identified. There is no midline shift or evidence of acute territorial ischemia by CT criteria. Findings were called to Dr. Shepherd in the Emergency Department at the time of interpretation on 12/16/2017. Electronically signed by: Junior Moon M.D. 12/16/2017 12:19 AM Laboratory Results 12/15/17 23:32 Red Blood Count 4.66, Mean Corpuscular Volume 89.1, Mean Corpuscular Hemoglobin 32.2, Mean Corpuscular Hemoglobin Concent 36.1, Mean Platelet Volume 9.9 12/15/17 23:32 Test 12/15/17 23:32 12/16/17 00:16 White Blood Count 6.28 K/uL (4.8-10.8) Red Blood Count 4.66 M/uL (4.7-6.1) Hemoglobin 15.0 g/dL (14.0-18.0) Hematocrit 41.5 % (42-52) Mean Corpuscular Volume 89.1 fL (80-100) Mean Corpuscular Hemoglobin 32.2 pg (25-34) Mean Corpuscular Hemoglobin Concent 36.1 g/dl (32-36) Platelet Count 151 K/uL (130-400) Mean Platelet Volume 9.9 fL (7.4-10.4) RDW Standard Deviation 42.7 fL (36.4-46.3) RDW Coefficient of Variation 13.2 % (11.5-14.5) Neutrophils % (Manual) 57.7 % Lymphocytes % (Manual) 12.1 % Variant Lymphocytes % (manual) 16.4 % Monocytes % (Manual) 9.5 % Eosinophils % (Manual) 4.3 % Neutrophils # (Manual) 3.62 K/uL (1.4-6.5) Total Absolute Neutrophils 3.62 K/uL (1.4-6.5) Lymphocytes # (Manual) 0.76 K/uL (1.2-3.4) Absolute Variant Lymphocytes 1.03 K/uL Total Absolute Lymphocytes 1.79 K/uL (1.2-3.4) Monocytes # (Manual) 0.60 K/uL (0.11-0.59) Eosinophils # (Manual) 0.27 K/uL (0-0.5) Platelet Estimate NORMAL Red Blood Cell Morphology Unremarkable Prothrombin Time 10.0 SECONDS (9.0-12.0) Prothromb Time International Ratio 1.0 (0.9-1.1) Activated Partial Thromboplast Time 25.8 SECONDS (21.0-31.0) Partial Thromboplastin Ratio 1.0 Anion Gap 5.0 mmol/L (3-11) Est Creatinine Clear Calc Drug Dose 79.6 ml/min Estimated GFR () 78.0 Estimated GFR (Non- 67.3 BUN/Creatinine Ratio 23.0 (10-20) Calcium Level 9.4 mg/dl (8.5-10.1) Magnesium Level 2.2 mg/dl (1.8-2.4) Total Creatine Kinase 80 U/L (39-308) Creatine Kinase MB 0.8 ng/ml (0.5-3.6) Creatine Kinase MB Ratio 1.0 (0-3.0) Troponin I 0.033 ng/ml (0-0.045) Bedside Prothrombin Time INR 1.0 (0.9-1.1) Laboratory results as stated above per my review. Medications Administered Medications (Trade) Dose Ordered Sig/[place] Route Start Time Stop Time Status Last Admin Dose Admin Sodium Chloride 1,000 ml @ 50 mls/hr Q20H IV 12/16/17 00:02 01/15/18 00:01 12/16/17 00:34 50 MLS/HR ECG Per My Interpretation Indication: weakness Rate (beats per minute): 60 Rhythm: sinus with SA Findings: RBBB, other (No ST elevation) ED Course 0006: The patient is in CT. 0012: Previous medical records were reviewed. The patient was evaluated in room A1. A complete history and physical examination was performed. 0014: The patient had an EKG done. 0052: On reevaluation, the patient is stable. I discussed the results and findings with him and his family. They verbalized agreement of the treatment plan. Discussed the patient's case with Dr. Kash Ceron, [facility]. She will accept the patient for transport. The patient will be transferred by [facility] for further evaluation and treatment. Medical Decision Differential includes acute coronary syndrome, myocardial infarction, CVA, TIA, anemia, infection, pneumonia, UTI, pyelonephritis, poor nutrition, dehydration, electrolyte disturbance,hypoglycemia. This is a 72-year-old male who presents to the ED with a chief complaint of CVA- like symptoms. The patient had sudden onset of symptoms tonight around 11 PM. The symptoms included left-sided arm and leg weakness as well as left-sided facial droop and slurring of speech. The patient also complained of a headache. His physical exam revealed the same. He is awake, alert and oriented. The patient has a CT scan that reveals basal ganglia hemorrhage with intraventricular extension. The patient's initial blood pressure was elevated but did improve to around 160 systolic without specific treatment. I spoke with the neurosurgical person on-call Dr. Hewitt who accepted the transfer the patient. The patient was transported by helicopter. The patient and family were updated. The patient was assessed numerous times during his stay. Blood Pressure Screening Patient's blood pressure: Elevated blood pressure Blood pressure disposition: Referred to PCP Consults Time Called: 20 Consulting Physician: Dr. Kash Ceron [employer] [facility] Returned Call: [phone] Discussed the patient's case. She will accept the patient for transfer. Impression Primary Impression: Hemorrhagic cerebrovascular accident (CVA) Critical Care I have personally spent 30 minutes of critical care time in the direct management of this patient. This includes bedside care, interpretation of diagnostic studies, and testing, discussion with consultants, patient, and family members, and other required patient management activities. This 30 minutes is in excess of all separately billable procedures. Scribe Attestation The scribe's documentation has been prepared under my direction and personally reviewed by me in its entirety. I confirm that the note above accurately reflects all work, treatment, procedures, and medical decision making performed by me. Departure Information Dispostion Transfer Acute Care Facility Referrals Kane Granados M.D. (PCP) Patient Instructions My [facility]
== END 2017-12-16 01:43 | disposition short-term general hospital (02) ==
LOC: C.EDA 00:03
DX: I61.0 Nontraumatic intracerebral hemorrhage in hemisphere, subcortical (principal); R03.0 Elevated blood-pressure reading, without diagnosis of hypertension; I25.10 Atherosclerotic heart disease of native coronary artery without angina pectoris; Z79.82 Long term (current) use of aspirin; Z79.02 Long term (current) use of antithrombotics/antiplatelets; Z87.891 Personal history of nicotine dependence; Z88.0 Allergy status to penicillin; Z88.8 Allergy status to other drugs, medicaments and biological substances

== ENCOUNTER 2020-02-11 20:58 | Observation (INO) ==
[2020-02-11] MEDS ORDERED: ONDANSETRON INJ 2 MG/ML 2 ML VIAL IV STA (21:11)
--- NOTE | 2020-02-11 21:17 | Emergency Department Note ---
History of Present Illness General Chief complaint: Abdominal Pain Time Seen by Provider: 02/11/20 21:04 Source: patient and RN notes reviewed Mode of arrival: EMS Limitations: other (Impaired cognition from prior stroke) History of Present Illness Provider complaint: Abdominal pain Onset (ago): hour(s) Location: abdomen Severity: mild Pain Consistency: + now resolved Quality: + other (Unable to remember) Exacerbated By: + none Associated symptoms: + cough, + headaches (Headache earlier now resolved), + nausea/vomiting and + shortness of breath; no chest pain and no fever/chills This is a 75-year-old male who presents with abdominal pain. The patient does have cognitive issues due to his prior stroke and so I did obtain history from the patient as well as the RN who spoke to EMS. Apparently the patient was lying in bed and the patient's noted that he seemed less responsive and he started throwing up and complaining of right lower quadrant abdominal pain. He states the pain is gone. He does not know how to describe it. He states it is associated with vomiting. He had a headache earlier which she states is now resolved. He denies any chest pain but does complain of some difficulty breathing which is better with oxygen. He does have a cough which is productive. He denies any fever. He did have a bowel movement earlier today. Home Medications Home Medications Medication Instructions Recorded Confirmed Type multivitamin 1 tab PO QAM #0 05/08/09 02/11/20 History finasteride 5 mg PO QAM #0 tab 01/26/15 02/11/20 History doxazosin 2 mg PO DAILY #0 02/20/18 02/11/20 History gabapentin 600 mg PO Q12 #0 02/20/18 02/11/20 History omeprazole 20 mg PO QAM 05/07/18 02/11/20 History lisinopril [Zestril] 10 mg PO QAM #30 tab 05/09/18 02/11/20 Rx metoprolol tartrate 50 mg PO QPM 06/14/18 02/11/20 History tramadol 50 mg PO Q6H PRN 06/14/18 02/11/20 History Metamucil 1 tbsp PO QAM 07/31/18 02/11/20 History coenzyme Q10 200 mg capsule 200 mg PO DAILY cap 04/05/19 02/11/20 History triamcinolone acetonide 0.1 % 1 appln TOPICAL BID #1 gm 04/05/19 02/11/20 History topical cream magnesium oxide 400 mg (241.3 mg 400 mg PO DAILY #30 tab 10/21/19 02/11/20 Rx magnesium) tablet pravastatin 40 mg PO DAILY 02/11/20 02/11/20 History sertraline 75 mg PO DAILY 02/11/20 02/11/20 History Allergies Allergy/AdvReac Type Severity Reaction Status Date / Time Penicillins Allergy Unknown RASH Verified 02/11/20 22:40 [id number] Reductase AdvReac Unknown "WEAK" Verified 02/11/20 22:40 Inhibitor Past Med/Surg History Medical History Atrial flutter s/p cardioversion 2005. Recurrent atrial flutter 2016 treated with radi ofrequency ablation. 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 HTN (hypertension), benign Hx of deep venous thrombosis Hx of gastroesophageal reflux (GERD) controlled with meds Hx pulmonary embolism Hyperlipidemia Obesity (BMI 30-39.9) Obstructive sleep apnea with CPAP; no home O2 Osteoarthritis Spinal stenosis Surgical History H/O umbilical hernia repair History of cardiac radiofrequency ablation History of cardioversion History of cholecystectomy History of colonoscopy History of endoscopic retrograde cholangiopancreatography History of tonsillectomy S/P cardiac cath 2 stents total - 2006 1 stent placed. 12/[address] [facility] - 1 stent placed. 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 and A total of 10 systems reviewed and were otherwise negative Physical Exam Vital Signs Vital Signs - 24 hr 02/11/20 21:48 02/11/20 23:00 Temperature 36.6 C Temperature Source Oral Pulse Rate 88 Pulse Rate [Right Brachial] 93 H Pulse Rhythm Irregular Respiratory Rate 16 18 Respiratory Depth Normal Blood Pressure 184/127 H Blood Pressure [Right Arm] 131/81 Blood Pressure Mean 146 Blood Pressure Mean [Right Arm] 97 Pulse Oximetry 92 92 Oxygen Delivery Method Nasal Cannula Room Air Oxygen Flow Rate 2 Sepsis Recent Fever Within 48 Hours No Sepsis Action Taken by Nursing No Action Required Constitutional: Vital signs reviewed. Eyes: Pupils are equal round reactive to light. Conjunctiva are noninjected. ENT: Pharynx is clear without erythema or exudate. Mucous membranes are dry. Neck supple without meningeal signs. Respiratory: Clear to auscultation bilaterally. Breath sounds are equal bilaterally. Cardiovascular: Regular rate and rhythm. No rubs or gallops. GI: Soft, nondistended with mild lower abdominal tenderness. Bowel sounds are present. Musculoskeletal: Bilateral lower extremity edema. No lower extremity tenderness. Integumentary: No cyanosis. or jaundice. Neurological: The patient is awake and alert. Left hemiparesis. Psychiatric: Normal affect. Not anxious appearing. Course Administered Medications Discontinued Medications Ondansetron HCl (Zofran) 4 mg IV NOW STA Stop: 02/11/20 21:12 Last Admin: 02/11/20 21:36 Dose: 4 mg Documented by: [id number] Medical Decision Making Differential Diagnosis Bowel obstruction, partial bowel obstruction, appendicitis, diverticulitis, gastritis, pneumonia Medical Records Attestation: I reviewed the patient's medical records. I did perform a limited focused review of portions of the patient's old chart on the electronic medical record. The patient has had no recent pertinent visits to this hospital. Home Medications Current Medication List: was personally reviewed by me Laboratory Data Attestation: I reviewed the patient's lab results. Result diagrams: 02/11/20 21:00 02/11/20 21:00 Lab Results 02/11/20 02/11/20 Range/Units 21:00 21:00 WBC 20.40 H (4.8-10.8) K/uL RBC 4.93 (4.7-6.1) M/uL Hgb 14.9 (14.0-18.0) g/dL Hct 43.5 (42-52) % MCV 88.2 (80-100) fL MCH 30.2 (25-34) pg MCHC 34.3 (32-36) g/dL RDW Std Deviation 43.9 (36.4-46.3) fL RDW Coeff of Jeyson 13.6 (11.5-14.5) % Plt Count 185 (130-400) K/uL MPV 10.0 (7.4-10.4) fL Immature Gran % (Auto) 0.3 % Neut % (Auto) 90.9 % Lymph % (Auto) 3.8 % Isabella % (Auto) 4.7 % Eos % (Auto) 0.3 % Baso % (Auto) 0.0 % Immature Gran # (Auto) 0.06 H (0.00-0.02) K/uL Neut # (Auto) 18.53 H (1.4-6.5) K/uL Lymph # (Auto) 0.77 L (1.2-3.4) K/uL Isabella # (Auto) 0.96 H (0.11-0.59) K/uL Eos # (Auto) 0.07 (0-0.5) K/uL Baso # (Auto) 0.01 (0-0.2) K/uL Sodium 137 (136-145) mmol/L Potassium 3.9 (3.5-5.1) mmol/L Chloride 105 (98-107) mmol/L Carbon Dioxide 25 (21-32) mmol/L Anion Gap 8.0 (3-11) BUN 11 (7-18) mg/dl Creatinine 0.94 (0.6-1.4) mg/dl Est Cr Clr Drug Dosing 93.8 ml/min Est GFR ( Amer) 90.3 Est GFR (Non-Af Amer) 77.9 BUN/Creatinine Ratio 11.4 (10-20) Glucose 174 H (70-99) mg/dl Calcium 9.0 (8.5-10.1) mg/dl Total Bilirubin 0.4 (0.2-1) mg/dl AST 31 (15-37) U/L ALT 42 (12-78) U/L Alkaline Phosphatase 106 (45-117) U/L Troponin I 0.081 H* (0-0.045) ng/ml Total Protein 7.7 (6.4-8.2) gm/dl Albumin 3.3 L (3.4-5.0) gm/dl Globulin 4.4 H (2.5-4.0) gm/dl Albumin/Globulin Ratio 0.7 L (0.9-2) Lipase 99 (73-393) U/L Imaging Data Attestation: I personally reviewed and interpreted this imaging study as follows: My Impression: Chest x-ray per my interpretation shows no acute cardiopulmonary process. Radiologist's Impression: CT ABDOMEN & PELVIS Without Contrast: Comparison to April 27, 2018. There are reticular densities in both lung bases similar to previous likely pulmonary fibrosis. There is fatty infiltration of the liver. No focal liver lesion is identified. The gallbladder has been removed. No biliary duct dilation is seen. The pancreas, spleen and adrenal glands appear unremarkable. The left kidney is somewhat small. There are several cysts in the right kidney measuring up to 5.5 cm. No hydronephrosis or ureterolithiasis is seen. The urinary bladder is completely decompressed. Mild constipation with six-point centimeters of stool in the rectum. No other dilated bowel loops are present. No acute inflammatory changes are seen in the mesenteric fat or involving the bowel. The appendix is normal. Calcified aorta is nondilated. Mild to moderate multilevel degenerative changes throughout the spine. No fracture or subluxation is seen. Radiologist: Max Cook MD Study ready at 22:50 and initial results transmitted at 23:10 CT HEAD: The paranasal sinuses and mastoid air cells are normally aerated. There is no skull fracture or scalp hematoma. Brain windows demonstrates a 2 cm area of encephalomalacia from old infarct in the right subinsular white matter as well as old lacunar infarcts in the right basal ganglia. There is also moderate periventricular white matter low density bilaterally consistent with chronic small vessel disease. The pattern is similar to previous. No acute large vessel infarct or intracranial hemorrhage is seen. Radiologist: Max Cook MD Study ready at 22:46 and initial results transmitted at 23:04 ECG Data Attestation: I personally reviewed and interpreted this ECG as follows: Rate (beats per minute): 85 Rhythm: + atrial fibrillation ECG Intervals/blocks: + Left anterior fascicular block and + Right Bundle branch block ECG ST segments: no ST elevation Comparison ECG Date: from (April 30, 2018) Blood Pressure Blood Pressure Findings: Elevated blood pressure Blood Pressure Disposition: Referred to patients primary care provider MDM Narrative I did evaluate the patient as noted above. The patient is presenting with abdominal pain which now is largely resolved. He had an episode of vomiting. He does complain of a cough but denies any fever. He has no chest pain but states that he has had some occasional shortness of breath. IV access was established. I did treat the patient with Zofran IV. I did place an order for continuous cardiac monitoring. The monitor showed sinus rhythm with a rate of 96. I did order and personally review the patient's 12-lead EKG as described above. He has a bifascicular block which was present in 2018 but he appears to have new onset atrial fibrillation. There is no evidence of acute ischemia. I did order and personally reviewed the images of the patient's chest x-ray as described above. There is no evidence of pneumonia. I did order a urine analysis. A catheterized urine was obtained and dip showed blood without signs of infection. I did order and review the patient's blood work as noted in the electronic medical record. His white count is over 20,000. He is not anemic. Platelets are normal. Electrolytes are unremarkable. LFTs and lipase are unremarkable. Troponin is slightly elevated. I did order a CT of the head, abdomen and pelvis. I did review the images myself as well as the radiology report as described above. No acute process within the head or abdomen and pelvis. He does have some mild constipation. I did reassess the patient. He has no specific complaints at this time. He has no abdominal pain. I did discuss the test results with the patient and his . His states in the past he has had elevated white blood cell counts with no known explanation. He denies having any fevers at home. I did recommend hospitalization for further care and evaluation. The case was discussed with the patient case manager who spoke to the hospitalist. Impression & Plan Atrial fibrillation, new onset, Abdominal pain, Elevated troponin, Leukocytosis Discharge Plan Visit Data Chief Complaint: Abdominal Pain ED Provider: Doug Lindsey Discharge Problem: Atrial fibrillation, new onset, Abdominal pain, Elevated troponin, Leukocytosis Patient Disposition: Being Evaluated by Hospitalist Forms Stand Alone Forms: My [facility] Prescriptions Prescriptions: No Action multivitamin Tablet 1 tab PO QAM Qty: 0 RF: 0 finasteride 5 mg Tablet 5 mg PO QAM Qty: 0 RF: 0 gabapentin 600 mg Tablet 600 mg PO Q12 Qty: 0 RF: 0 doxazosin 2 mg Tablet 2 mg PO DAILY Qty: 0 RF: 0 magnesium oxide 400 mg (241.3 mg magnesium) tablet 400 mg PO DAILY Qty: 30 RF: 5 coenzyme Q10 200 mg capsule 200 mg PO DAILY RF: 0 triamcinolone acetonide 0.1 % cream 1 appln topical BID Qty: 1 RF: 0 omeprazole 20 mg Capsule,Delayed Release(Dr/Ec) 20 mg PO QAM RF: 0 lisinopril [Zestril] 10 mg Tablet 10 mg PO QAM Qty: 30 RF: 2 tramadol 50 mg Tablet 50 mg PO Q6H PRN (Reason: Pain) RF: 0 metoprolol tartrate 50 mg tablet 50 mg PO QPM RF: 0 Metamucil 3.4 gram/5.4 gram Powder 1 tbsp PO QAM RF: 0 pravastatin 40 mg Tablet 40 mg PO DAILY RF: 0 sertraline 50 mg Tablet 75 mg PO DAILY RF: 0 Referrals Referrals: Chester Granados MD [Primary Care Provider] - Discharge Problem: Abdominal pain Qualifiers: Abdominal location: right lower quadrant Qualified Code(s): R10.31 - Right lower quadrant pain Leukocytosis Qualifiers: Leukocytosis type: unspecified Qualified Code(s): D72.829 - Elevated white blood cell count, unspecified
[2020-02-11 21:44] LABS: Basophils # (auto) 0.01 K/uL (0-0.2); Eosinophils # (auto) 0.07 K/uL (0-0.5); Eosinophils % (auto) 0.3 %; Hematocrit (blood only) 43.5 % (42-52); Hemoglobin 14.9 g/dL (14.0-18.0); Immature Granulocytes # (auto) 0.06 K/uL (0.00-0.02); Immature Granulocytes % (auto) 0.3 %; Lymphocytes # (auto) 0.77 K/uL (1.2-3.4); Lymphocytes % (auto) 3.8 %; Mean Corpuscular Hemoglobin 30.2 pg (25-34); Mean Corpuscular Hgb Conc 34.3 g/dL (32-36); Mean Corpuscular Volume 88.2 fL (80-100); Monocytes # (auto) 0.96 K/uL (0.11-0.59); Monocytes % (auto) 4.7 %; Neutrophils # (auto) 18.53 K/uL (1.4-6.5); Neutrophils % (auto) 90.9 %; Platelet Count 185 K/uL (130-400); RDW Coefficient of Variation 13.6 % (11.5-14.5); RDW Standard Deviation 43.9 fL (36.4-46.3); Red Blood Count 4.93 M/uL (4.7-6.1)
[2020-02-11 22:02] LABS: Albumin Level 3.3 gm/dl (3.4-5.0); BUN Creatinine Ratio 11.4 (10-20); Creatinine Clr Calc Pharmacy 93.8 ml/min; Est GFR (African American) 90.3; Est GFR (Non-African American) 77.9; Potassium 3.9 mmol/L (3.5-5.1)
[2020-02-11 22:10] LABS: Albumin Globulin Ratio 0.7 (0.9-2); Bilirubin,Total 0.4 mg/dl (0.2-1); Globulin 4.4 gm/dl (2.5-4.0); Total Protein 7.7 gm/dl (6.4-8.2); Troponin I 0.081 ng/ml (0-0.045)
[2020-02-11 23:47] LABS: Appearance Urine Cloudy (Clear); Bacteria Urine Automated Negative (Negative); Bilirubin Urine Negative (Negative); Blood Urine Trace (Negative); Color Urine Dark Yellow; Epithelial Cell Urine Auto >30 /lpf (0-5); Glucose Urine UA Negative (Negative); Ketones Urine Trace (Negative); Leukocyte Esterase Urine Negative (Negative); Nitrite Urine Negative (Negative); Protein Urine 2+ (Negative); Specific Gravity Urine 1.022 (1.000-1.030); Urobilinogen Urine Negative (Negative); pH Urine 6.5 (4.5-7.5)
--- NOTE | 2020-02-12 01:04 | History & Physical Report ---
Date of Service February 12, 2020 Assessment & Plan (1) Aspiration pneumonia: 75-year-old male past medical history thoracic aortic aneurysm, urge incontinence, CELY on CPAP, CAD status post stent, hemorrhagic stroke with residual left-sided hemiparesis, hypertension, aortic stenosis, DVT and PE, atrial fibrillation admitted for leukocytosis likely due to aspiration pneumonia. Leukocytosis likely 2/2 aspiration pneumonia: -On admission patient's white count ~20. -UA not suggestive of UTI, CTAP without clear GI source of infection. CXR unchanged from prior study. -On my review, bilateral lower lobes visualized on CT AP with findings suggestive of aspiration pneumonia/pneumonitis. -As patient had an episode of emesis while lying flat in bed and was asleep shortly after, this is likely the aspiration event. -We will start aztreonam as patient has a allergy to penicillins. -Continue to monitor CBC daily. -DuoNeb every 4 hours as needed for shortness of breath. Titrate oxygen by nasal cannula as needed to maintain oxygen saturation greater than 92%. Continuous pulse ox. -Aspiration precautions. Ok for diet; no indication that patient cannot tolerate regular food while awake. Nausea and vomiting: -Differentials include gastritis, food poisoning. -Patient's without GI symptoms, has a history of GERD and over the last week has been using Tums intermittently. -Continue PPI. Start famotidine while admitted. -Zofran PRN nausea. Patient is without nausea at this time. Elevated troponin: -Patient's troponin is 0.08 on admission; on chart review patient has always had elevated troponin, and 0.08 is actually lower than patient's apparent baseline of 0.2. -Patient without chest pain or palpitations. No concern for ACS at this time. Continuous cardiac monitoring while on telemetry. CELY: -Continue CPAP. Hypertension: -Continue home metoprolol, lisinopril. Atrial fibrillation: -Patient not on anticoagulant secondary to history of hemorrhagic stroke. -Continue metoprolol. Code Status: FULL CODE FEN/GI: Heart Healthy DVT ppx: Given history of hemorrhagic stroke will hold medical anticoagulation, start SCDs Dispo: med/surg with telemetry for cardiac monitoring and continuous pulse ox. IV Abx (2) Leukocytosis: (3) Elevated troponin: (4) Obstructive sleep apnea: (5) Hypertension: (6) Gastroesophageal reflux disease: (7) Nausea & vomiting: (8) CAD, multiple vessel: (9) Diabetes mellitus type 2 in obese: (10) Pulmonary emboli: (11) History of hemorrhagic cerebrovascular accident (CVA) with residual deficit: History of Present Illness Chief Complaint: Nausea, vomiting Primary Care Provider: Kane Granados MD 75-year-old male past medical history thoracic aortic aneurysm, urge incontinence, CELY on CPAP, CAD status post stent, hemorrhagic stroke with residual left-sided hemiparesis, hypertension, asthma, aortic stenosis, DVT and PE, atrial fibrillation presented to ED for nausea and vomiting and weakness. ED evaluation revealed a leukocytosis to 20, CT abdomen and pelvis with constipation but no other acute findings on stat read, chest x-ray on stat read without signs of pneumonia. Hospitalist service was consulted for admission. On my interview patient and his state that he went to bed at about 6 PM, 1 hour after dinner of ham sandwich, macaroni and cheese, and cantaloupe. About an hour later his went to give him his evening medications and found him to be covered in vomit. He was lying flat in bed at the time. When she woke him and asked him to turn over to clean him, she noted that he seemed to be much weaker and a little bit short of breath compared to baseline which made her fearful resulting in them coming to the emergency room. Patient denies nausea after receiving 1 dose of Zofran in ED. No shortness of breath. No abdominal pain, chest pain, fevers or chills. No changes in bowels or bladder. Reports a history of reflux for which he takes omeprazole at home, and intermittent Tums. Allergies Allergy/AdvReac Type Severity Reaction Status Date / Time Penicillins Allergy Unknown RASH Verified 02/11/20 22:40 [id number] Reductase AdvReac Unknown "WEAK" Verified 02/11/20 22:40 Inhibitor Home Medications Home Medications Medication Instructions Recorded Confirmed Type multivitamin 1 tab PO QAM #0 05/08/09 02/11/20 History finasteride 5 mg PO QAM #0 tab 01/26/15 02/11/20 History doxazosin 2 mg PO DAILY #0 02/20/18 02/11/20 History gabapentin 600 mg PO Q12 #0 02/20/18 02/11/20 History omeprazole 20 mg PO QAM 05/07/18 02/11/20 History lisinopril [Zestril] 10 mg PO QAM #30 tab 05/09/18 02/11/20 Rx metoprolol tartrate 50 mg PO QPM 06/14/18 02/11/20 History tramadol 50 mg PO Q6H PRN 06/14/18 02/11/20 History Metamucil 1 tbsp PO QAM 07/31/18 02/11/20 History coenzyme Q10 200 mg capsule 200 mg PO DAILY cap 04/05/19 02/11/20 History triamcinolone acetonide 0.1 % 1 appln TOPICAL BID #1 gm 04/05/19 02/11/20 History topical cream magnesium oxide 400 mg (241.3 mg 400 mg PO DAILY #30 tab 10/21/19 02/11/20 Rx magnesium) tablet pravastatin 40 mg PO DAILY 02/11/20 02/11/20 History sertraline 75 mg PO DAILY 02/11/20 02/11/20 History Past Med/Surg History Medical History Atrial flutter s/p cardioversion 2005. Recurrent atrial flutter 2016 treated with radiofrequency ablation. 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 HTN (hypertension), benign Hx of deep venous thrombosis Hx of gastroesophageal reflux (GERD) controlled with meds Hx pulmonary embolism Hyperlipidemia Obesity (BMI 30-39.9) Obstructive sleep apnea with CPAP; no home O2 Osteoarthritis Spinal stenosis Surgical History H/O umbilical hernia repair History of cardiac radiofrequency ablation History of cardioversion History of cholecystectomy History of colonoscopy History of endoscopic retrograde cholangiopancreatography History of tonsillectomy S/P cardiac cath 2 stents total - 2006 1 stent placed. 12/2016 - [facility] - 1 stent placed. 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 Other Information That Helps Us Care for You: No Feels Safe at Home: Yes Safety Concerns: Feels Safe At This Time Smoking Status: Former smoker Tobacco Type: cigarettes ; Do You Dip or Chew Tobacco: No ; Second Hand Exposure: No ; Tobacco Cessation Education Requested by Patient: No Hx Alcohol Use: Yes Alcohol type: beer Alcohol Intake Frequency: Rarely Alcohol Intake Frequency Comment: socially Hx Substance Use: No Physical Activity Frequency: Other Physical Activity Frequency Comment: limited due to physical condition Review of Systems Review of Systems: All systems reviewed & are unremarkable except as noted in HPI & below Constitutional: no fever, no chills and no malaise Respiratory: no cough and no dyspnea Cardiovascular: no chest pain, no palpitations and no edema Gastrointestinal: no abdominal pain, no constipation and no diarrhea/loose stools Physical Exam Constitutional: WD/WN, vitals as above Eyes: PERRL, conjunctivae normal, anicteric sclerae ENMT: external ear and nose normal, oropharynx normal Neck: trachea midline, no thyromegaly Respiratory: normal respiratory effort, lungs clear to auscultation Auscultation: no crackles and no wheezes Cardiovascular: RRR, no murmur, no edema Gastrointestinal (Abdomen): normal bowel sounds, soft, nontender, no hepatosplenomegaly Musculoskeletal: No cyanosis or clubbing. Right upper extremity and right lower extremity motor strength 5/5. Unable to move left upper extremity, left lower extremity. Skin: no rashes, warm and dry Neurologic: AAOx3, normal speech. PERRLA, EOMI, no nystagmus. Normal visual acuity bilaterally. Right UE, LE, and face without sensory or motor deficits. Cranial nerves II through XII intact bilaterally. Left upper extremity and left lower extremity with decreased sensation to light touch. Patient is able to wiggle the toes on his left foot but cannot lift that leg off of the bed. Unable to squeeze my f ingers on left side. No tremor. Psychiatric: A+Ox3, euthymic affect Results & Data Results & Data ([place]) Vital Signs (Past 12 Hours) Vital Signs Temp Pulse Pulse Resp BP BP Pulse Ox 02/11/20 23:00 93 H 18 131/81 92 02/11/20 21:48 36.6 C 88 16 184/127 H 92 Code Status & VTE Plan VTE Prophylaxis Plan VTE Prophylaxis will be ordered: Yes Supervising Physician Co-Signing Physician Notes Attending addendum: I have physically seen this patient, have supervised the medical residents activities, and agree with the H&P unless as otherwise noted. Assessment and Plan: Aspiration pneumonia- Admit to monitored bed Vancomycin IV and aztreonam IV Duonebs every 4 hours while awake and every 2 hours when necessary. Aspiration precautions Zofran 4 mg IV every 6 hours as needed Famotidine 20 mg IV every 12 hours Assessment by speech pathology. Chronically elevated troponin/hypertension- Continue metoprolol and lisinopril Serial troponins Remainder of orders and notations as noted Resident Activity Tracking Resident Involvement: Resident Care Provided Care Provided: Adult Hospital Medicine (1) Leukocytosis Leukocytosis type: unspecified Qualified Code(s): D72.829 - Elevated white blood cell count, unspecified (2) Pulmonary emboli Acute cor pulmonale presence: with acute cor pulmonale Chronicity: chronic Pulmonary embolism type: other Qualified Code(s): I27.82 - Chronic pulmonary embolism; I26.09 - Other pulmonary embolism with acute cor pulmonale
[2020-02-12] MEDS ORDERED: TRAMADOL HCL 50 MG TABLET PO PRN (03:23)
[2020-02-12] MEDS ORDERED: POLYETHYLENE (MIRALAX) 17 GM PACK PO PRN (03:23)
[2020-02-12] MEDS ORDERED: ALBUT/IPRATROP 3MG/0.5MG NEB 3 ML VIAL NEB PRN (03:23)
[2020-02-12] MEDS ORDERED: ACETAMINOPHEN 325 MG TAB PO PRN (03:23)
[2020-02-12] MEDS ORDERED: ONDANSETRON INJ 2 MG/ML 2 ML VIAL IV PRN (03:23)
[2020-02-12] MEDS: AZTREONAM 2,000 MG in DEXTROSE 5% 100 ML IV SCH ×2 (04:51→14:52)
--- NOTE | 2020-02-12 06:28 | XRay Report ---
XR chest 1V portable CLINICAL HISTORY: cough eval for pna dyspnea COMPARISON STUDY: No previous studies for comparison. FINDINGS: Minimal parenchymal infiltrate medial right base. Poor inspiratory volumes. Mild cardiomega ly. Mild prominence pulmonary vasculature. IMPRESSION: 1. Minimal infiltrate medial right base. Pulmonary vascular congestion. ACT 112: Negative or not required by law. The above report was generated using voice recognition software. It may contain grammatical, syntax or spelling errors. Electronically signed by: Sg Kirby M.D. 02/12/2020 6:26 AM
--- NOTE | 2020-02-12 06:44 | CT Scan Report ---
CT abd pelvis wo con CT DOSE: 1741.93 mGy.cm HISTORY: Pain. Nausea. vomiting/rlq pain TECHNIQUE: Multiaxial CT images of the abdomen and pelvis were performed without contrast. A dose lo wering technique was utilized adhering to the principles of ALARA. COMPARISON STUDY: 04/27/2018 FINDINGS: Bibasilar parenchymal interstitial infiltrative/fibrotic change. Fatty replacement of the l iver. Interval cholecystectomy. Several right renal cysts. No evidence for renal hydronephrosis. Nonobstructive bowel pattern. Slight bladder wall thickening considered unchanged from the prior stud y. Degenerative change of the spine as well as bony pelvis. IMPRESSION: 1. Fatty replacement of the liver. 2. Nonobstructive bowel pattern. 3. Bibasilar fibrotic and/or infiltrative change. ACT 112: Negative or not required by law. The above report was generated using voice recognition software. It may contain grammatical, syntax or spelling errors. Electronically signed by: Sg Kirby M.D. 02/12/2020 6:42 AM
[2020-02-12 06:59] LABS: Basophils # (auto) 0.02 K/uL (0-0.2); Basophils % (auto) 0.1 %; Eosinophils # (auto) 0.03 K/uL (0-0.5); Eosinophils % (auto) 0.2 %; Hemoglobin 13.2 g/dL (14.0-18.0); Immature Granulocytes # (auto) 0.05 K/uL (0.00-0.02); Immature Granulocytes % (auto) 0.3 %; Lymphocytes # (auto) 1.86 K/uL (1.2-3.4); Lymphocytes % (auto) 10.6 %; Mean Corpuscular Hemoglobin 30.1 pg (25-34); Mean Corpuscular Hgb Conc 33.8 g/dL (32-36); Mean Platelet Volume 9.8 fL (7.4-10.4); Monocytes # (auto) 0.89 K/uL (0.11-0.59); Monocytes % (auto) 5.1 %; Neutrophils # (auto) 14.72 K/uL (1.4-6.5); Neutrophils % (auto) 83.7 %; Platelet Count 198 K/uL (130-400); RDW Coefficient of Variation 13.8 % (11.5-14.5); RDW Standard Deviation 45.1 fL (36.4-46.3); Red Blood Count 4.38 M/uL (4.7-6.1); White Blood Count 17.57 K/uL (4.8-10.8)
--- NOTE | 2020-02-12 07:10 | CT Scan Report ---
CT SCAN OF THE BRAIN WITHOUT IV CONTRAST CLINICAL HISTORY: Change in mental status. COMPARISON STUDY: CT of the brain dated 02/20/2018. TECHNIQUE: Unenhanced axial CT scan of the brain is performed from the vertex to the skull base. A do se lowering technique was utilized adhering to the principles of ALARA. CT DOSE: 614.27 mGy.cm FINDINGS: Brain parenchyma: There are age-related involutional changes noting moderate confluent subcortical a nd periventricular microangiopathic change. There is no hemorrhage, mass effect, or evidence of acute territorial ischemia by CT criteria. A chronic infarct is noted in the right basal ganglia. Chronic lacunar infarct identified within the caudate heads and the right thalamus. Hudson-white matter differe ntiation is preserved. No extra-axial fluid collection is seen. Ventricles, sulci, cisterns: Prominent secondary to involutional change. Intracranial vasculature: There is atherosclerotic calcification of the cavernous carotid and vertebr al arteries. Calvarium: Unremarkable. Sinuses and mastoids: Trace mucosal thickening is seen within the frontal sinuses. The remaining visu alized paranasal sinuses are clear. The mastoid air cells are well pneumatized. Orbits: The bony orbits are grossly intact. IMPRESSION: There is no hemorrhage, mass effect, or evidence of acute territorial ischemia by CT escobar watkins. ACT 112: Negative or not required by law. Electronically signed by: Junior Moon M.D. 02/12/2020 7:09 AM
[2020-02-12 07:22] LABS: BUN Creatinine Ratio 16.1 (10-20); Calcium 8.6 mg/dl (8.5-10.1); Creatinine Clr Calc Pharmacy 89.1 ml/min; Est GFR (African American) 85.8; Est GFR (Non-African American) 74.1; Potassium 4.4 mmol/L (3.5-5.1)
[2020-02-12] MEDS: DOXAZosin MESYLATE TAB 2 MG TAB PO SCH (08:53)
[2020-02-12] MEDS: FAMOTIDINE 40 MG TABLET PO SCH (08:54)
[2020-02-12] MEDS: PRAVASTATIN SOD 40 MG TAB PO SCH (08:54)
[2020-02-12] MEDS: GABAPENTIN 600 MG TAB PO SCH ×2 (08:54→21:10)
[2020-02-12] MEDS: lisinopriL 10 MG TAB PO SCH (08:54)
[2020-02-12] MEDS: MULTIVITAMIN TAB PO SCH (08:54)
[2020-02-12] MEDS: MAGNESIUM OXIDE 400 MG TAB PO SCH (08:54)
[2020-02-12] MEDS: SERTRALINE HCL 50 MG TABLET PO SCH (08:55)
[2020-02-12] MEDS: PANTOprazole 40 MG TAB PO SCH (08:55)
--- NOTE | 2020-02-12 12:29 | Hospitalist Progress Note ---
Date of Service February 12, 2020 Assessment & Plan (1) Aspiration pneumonia: 75-year-old male past medical history thoracic aortic aneurysm, urge incontinence, CELY on CPAP, CAD status post stent, hemorrhagic stroke with residual left-sided hemiparesis, hypertension, aortic stenosis, DVT and PE, atrial fibrillation admitted for leukocytosis likely due to aspiration pneumonia. Aspiration pneumonia: -On admission patient's white count ~20 - WBC 17 today -UA not suggestive of UTI - CT-Ab shows bibasilar fibrotic vs infiltrative changes in inferior lobes. Fatty liver, no acute abdominal pathology. - CXR: ?R base infiltrate - Pt reports has tolerated 'PCN like' medications well before, penicillin cause a red abdominal rash once before. - Converted Aztreonam to ceftriaxone 2g daily + flagyl 500mg TID x7 day course -Continue to monitor CBC daily. -DuoNeb every 4 hours as needed for shortness of breath. Titrate oxygen by nasal cannula as needed to maintain oxygen saturation greater than 88%. Continuous pulse ox. Nausea and vomiting, resolved - DDx included gastritis, food poisoning - CT-Ab with naf - Continue PPI + famotidine - Zofran PRN q4h Elevated troponin: -Patient's troponin is 0.08 on admission - Pt with 1x episode of elevated troponin in the past, suspect chronic but was a single episode which downtrending. Repeat troponin x1 @ 12 hours - No cardiac symptoms, no acute ST/EKG changes. Low suspicion for ACS. CELY: -Continue CPAP. 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 -Continue rate control with metoprolol as above PT/OT pending Code Status: FULL CODE FEN/GI: Heart Healthy DVT ppx: Phamacologic ppx contraindicated 2/2 hemorrhagic stroke, SCDs Dispo: med/surg with telemetry Admission and Anticipated Discharge Date Admission Date: February 12, 2020 Supervising Physician Co-Signing Physician Notes Patient seen and examined [facility] PGY-2 Dr. Chong. Agree with history, exam findings, assessment and plan of care as outlined by Dr. Chong. In brief, Mr. Interiano is a 75 year old male with history of afib, HTN, prior hemorrhagic stroke, peripheral neuropathy, CELY, urge incontinence admitted with nausea, vomiting and concern for aspiration pneumonia. Reviewed ED course, labs and images. Today, he reports that he feels well. Denies dyspnea and chest pain. . Denies nausea, vomiting. Does have PCN allergy listed (had a rash on his abdomen many years ago), but has tolerated cephalosporins without any issues in the past. This morning did have some urinary urgency, was bladder scanned for ~100cc. VS, labs, images and nursing notes reviewed. Non-toxic appearing. Breathing easily, bibasilar crackles, no wheezing or ronchi. Left upper extremity hemiparesis. 1. aspiration pneumonia. Switch to cetriaxone and flagyl. White count improving (20-->17). 2. nausea/vomiting. improved. continue PPI, pepcid, and zofran. 3. elevated trop. 0.081 on admission, repeat 0.079 4. afib. rate controlled with metoprolol. Not anticoagulated due to history of hemorrhagic stroke. 5. HTN. Controlled. continue metoprolol and lisinopril. 6. BPH. continue home doxazosin, finasteride. 7. CELY. CPAP at night. Dispo: pending clinical improvement. Subjective Henrry reports he feels improved today. No shortness of breath at time of assessment, was on RA this morning then placed on 0.5L NC O2 midmorning. No shortness of breath or chest pain. Denies cough. Abdominal pain and nausea have resolved. Denies fever, chills, sweats. Is curious to when he can go home. No other questions or concerns at time of assessment. Discussed PCN allergy. Pt reports as an adult he took PCN and develop an itchy red rash across his abdominal without purple character or welts. He has taken "penicillin related' medications before without diffiuclty or any reactions although does not remember the names of these medications. Review of Systems Review of Systems: Constitutional: Denies fever, chills, malaise Eyes: Denies acute vision change, eye pain ENT: Denies acute ear pain, sore throat, sinus pain Cardiovascular: Denies chest pain, chest pressure, palpitations, extremity swelling Respiratory: Denies shortness of breath, cough, sputum production, difficulty breathing Gastrointestinal: Denies abdominal pain, nausea, vomiting, constipation, diarrhea Genitourinary: Denies dysuria Musculoskeletal: Denies acute weakness, muscle aches/pain, joint aches/pain. Endorses L hemoparesis. Integumentary:Denies acute rash, lesions, bruising Neurological: Denies acute headache, numbness, tingling, focal weakness Physical Exam Physical Exam: General: A&Ox3. NAD. Cooperative. HEENT: Atraumatic, normocephalic. Pulm: CTAB A&P. -wheezes, -rales, -rhonchi. Symmetrical chest rise. No increase work of breathing. No respiratory distress. Cardiac: RRR, -mrg. Radial pulses intact and symmetrical. Abdominal: Nontender, nondistended, soft. BS present. Ext: Able to wiggle toes on LLE. L hip flexion, L tool and die technician 0/5. DP pulses intact bilaterally. R tool and die technician, elbow flexion/extension, R ankle plantarflexion/dorsiflexion, hip flexion 5/5. CN II: Visual modi are full to confrontation. Pupils are equal and react to light and accomidation. Visual acuity grossly intact. CN III, IV, : At primary gaze, there is no eye deviation. EoM intact without nystagmus. CN VII: No facial asymmetry CN VII: Hearing is grossly intact. CN IX, X: Phonation is normal without dysarthria. CN XII: Tongue protrudes midline. Results & Data Results & Data ([facility]) Vital Signs (Past 12 Hours) Vital Signs Temp Pulse Pulse Resp BP BP Pulse Ox 02/12/20 07:26 81 02/12/20 07:19 36.9 C 72 18 156/68 H 96 02/12/20 05:07 37.2 C 76 78 18 134/72 96 02/12/20 03:23 37.2 C 78 18 134/72 96 02/12/20 02:10 16 178/71 H 92 02/12/20 01:00 16 145/94 H 92 02/11/20 23:00 93 H 18 131/81 92 02/11/20 21:48 36.6 C 88 16 184/127 H 92 Pulse Ox 02/12/20 07:26 02/12/20 07:19 02/12/20 05:07 02/12/20 03:23 96 02/12/20 02:10 02/12/20 01:00 02/11/20 23:00 02/11/20 21:48 Resident Activity Tracking Resident Involvement: Resident Care Provided Care Provided: Adult Hospital Medicine
[2020-02-12] MEDS: cefTRIAXone SODIUM 2,000 MG in DEXTROSE 5% 50 ML IV SCH (14:03)
[2020-02-12] MEDS: FINASTERIDE 5 MG TAB PO SCH (14:03)
[2020-02-12] MEDS: metroNIDAZOLE 500 MG TAB PO SCH ×2 (14:08→21:08)
--- NOTE | 2020-02-12 15:22 | Electrocardiogram Report ---
Test Reason : Blood Pressure : / mmHG Vent. Rate : 085 BPM Atrial Rate : 115 BPM P-R Int : 000 ms QRS Dur : 132 ms QT Int : 394 ms P-R-T Axes : 000 -77 042 degrees QTc Int : 468 ms Sinus rhythm with frequent and consecutive atrial ectopy Right bundle branch block Left anterior fascicular block Bifascicular block Possible Lateral infarct (cited on or before 29-APR-2018) Abnormal ECG Confirmed by Kane Santos ([id number]) on 02/12/2020 3:22:14 PM Referred By: REFERRED SELF Confirmed By:Ollie Santos
[2020-02-12] MEDS ORDERED: METOPROLOL TARTRATE 50 MG TAB PO SCH (21:00)
--- NOTE | 2020-02-12 23:30 | Billing Data ---
Date of Service February 12, 2020 Coding Level of Care Code 82402 Initial Inpt Care Lvl 3
[2020-02-13 06:39] LABS: Basophils # (auto) 0.02 K/uL (0-0.2); Basophils % (auto) 0.3 %; Eosinophils # (auto) 0.18 K/uL (0-0.5); Eosinophils % (auto) 2.3 %; Hematocrit (blood only) 39.4 % (42-52); Hemoglobin 12.9 g/dL (14.0-18.0); Immature Granulocytes # (auto) 0.01 K/uL (0.00-0.02); Immature Granulocytes % (auto) 0.1 %; Lymphocytes # (auto) 1.39 K/uL (1.2-3.4); Lymphocytes % (auto) 17.7 %; Mean Corpuscular Hemoglobin 29.7 pg (25-34); Mean Corpuscular Hgb Conc 32.7 g/dL (32-36); Mean Corpuscular Volume 90.6 fL (80-100); Mean Platelet Volume 9.8 fL (7.4-10.4); Monocytes # (auto) 0.58 K/uL (0.11-0.59); Monocytes % (auto) 7.4 %; Neutrophils # (auto) 5.66 K/uL (1.4-6.5); Neutrophils % (auto) 72.2 %; Platelet Count 173 K/uL (130-400); RDW Coefficient of Variation 14.1 % (11.5-14.5); RDW Standard Deviation 47.2 fL (36.4-46.3); Red Blood Count 4.35 M/uL (4.7-6.1); White Blood Count 7.84 K/uL (4.8-10.8)
[2020-02-13 07:06] LABS: BUN Creatinine Ratio 16.5 (10-20); Calcium 9.1 mg/dl (8.5-10.1); Creatinine Clr Calc Pharmacy 83.1 ml/min; Est GFR (African American) 78.1; Est GFR (Non-African American) 67.4; Potassium 4.4 mmol/L (3.5-5.1)
[2020-02-13 07:22] VITALS: TEMP 98.6
[2020-02-13] MEDS: DOXAZosin MESYLATE TAB 2 MG TAB PO SCH (08:21)
[2020-02-13] MEDS: GABAPENTIN 600 MG TAB PO SCH (08:21)
[2020-02-13] MEDS: MAGNESIUM OXIDE 400 MG TAB PO SCH (08:21)
[2020-02-13] MEDS: PRAVASTATIN SOD 40 MG TAB PO SCH (08:22)
[2020-02-13] MEDS: lisinopriL 10 MG TAB PO SCH (08:22)
[2020-02-13] MEDS: FINASTERIDE 5 MG TAB PO SCH (08:22)
[2020-02-13] MEDS: SERTRALINE HCL 50 MG TABLET PO SCH (08:22)
[2020-02-13] MEDS: FAMOTIDINE 40 MG TABLET PO SCH (08:22)
[2020-02-13] MEDS: metroNIDAZOLE 500 MG TAB PO SCH ×2 (08:23→14:14)
[2020-02-13] MEDS: PANTOprazole 40 MG TAB PO SCH (08:23)
[2020-02-13] MEDS: MULTIVITAMIN TAB PO SCH (08:23)
[2020-02-13] MEDS: cefTRIAXone SODIUM 2,000 MG in DEXTROSE 5% 50 ML IV SCH (08:27)
--- NOTE | 2020-02-13 09:47 | Discharge Summary ---
Date of Service February 13, 2020 Admission HPI Per Admitting Provider 75-year-old male past medical history thoracic aortic aneurysm, urge incontinence, CELY on CPAP, CAD status post stent, hemorrhagic stroke with residual left-sided hemiparesis, hypertension, asthma, aortic stenosis, DVT and PE, atrial fibrillation presented to ED for nausea and vomiting and weakness. ED evaluation revealed a leukocytosis to 20, CT abdomen and pelvis with constipation but no other acute findings on stat read, chest x-ray on stat read without signs of pneumonia. Hospitalist service was consulted for admission. On my interview patient and his state that he went to bed at about 6 PM, 1 hour after dinner of ham sandwich, macaroni and cheese, and cantaloupe. About an hour later his went to give him his evening medications and found him to be covered in vomit. He was lying flat in bed at the time. When she woke him and asked him to turn over to clean him, she noted that he seemed to be much weaker and a little bit short of breath compared to baseline which made her fearful resulting in them coming to the emergency room. Patient denies nausea after receiving 1 dose of Zofran in ED. No shortness of breath. No abdominal pain, chest pain, fevers or chills. No changes in bowels or bladder. Reports a history of reflux for which he takes omeprazole at home, and intermittent Tums. Admission Exam Per Admitting Provider Constitutional: WD/WN, vitals as above Eyes: PERRL, conjunctivae normal, anicteric sclerae ENMT: external ear and nose normal, oropharynx normal Neck: trachea midline, no thyromegaly Respiratory: normal respiratory effort, lungs clear to auscultation Auscultation: no crackles and no wheezes Cardiovascular: RRR, no murmur, no edema Principal Diagnosis Aspiration Pneumonia Discharge Exam General: A&Ox3. NAD. Cooperative. Affect pleasant with good energy. HEENT: Atraumatic, normocephalic. hearing/vision grossly intact. Pulm: CTAB A&P. -wheezes, -rales, -rhonchi. Symmetrical chest rise. No increase work of breathing. No respiratory distress. Cardiac: irregularly irregulat, 3/6 systolic murmer. Radial pulses intact and symmetrical. Abdominal: Nontender, nondistended, soft. BS present. Ext: Able to wiggle toes on LLE. L hip flexion, L patient transporter 0/5. DP pulses intact tony aterally. R patient transporter, elbow flexion/extension, R ankle plantarflexion/dorsiflexion, hip flexion 5/5. CN II: Visual modi are full to confrontation. Pupils are equal and react to light and accomidation. Visual acuity grossly intact. CN III, IV, : At primary gaze, there is no eye deviation. EoM intact without nystagmus. CN VII: No facial asymmetry CN VII: Hearing is grossly intact. CN IX, X: Phonation is normal without dysarthria. CN XII: Tongue protrudes midline. Discharge Data Allergies Allergy/AdvReac Type Severity Reaction Status Date / Time Penicillins Allergy Unknown RASH Verified 02/11/20 22:40 [id number] Reductase AdvReac Unknown "WEAK" Verified 02/11/20 22:40 Inhibitor Consultations 02/11/20 23:25 ED Decision to Admit Stat Ordered Studies 02/11/20 21:11 CT abd pelvis wo con Urgent CT head/brain wo con Urgent Hospital Course (1) Aspiration pneumonia: 75-year-old male past medical history thoracic aortic aneurysm, urge incontinence, CELY on CPAP, CAD status post stent, hemorrhagic stroke with residual left-sided hemiparesis, hypertension, aortic stenosis, DVT and PE, atrial fibrillation admitted for leukocytosis due to aspiration pneumonia. Aspiration pneumonia: Mr. Interiano was admitted with a new oxygen requirement and shortness of breath which occurred after he vomited food products and had concern for aspiration. CT abdomen showed bibasilar changes consistent with fibrotic change versus infiltrative change in the lower lobes, fatty liver, but no other acute abdominal pathology. Chest x-ray showed a potential infiltrate at the right lung base. He was initially placed on aztreonam due to penicillin allergy and was converted to ceftriaxone with Flagyl for anaerobic coverage. He improved and he was weaned off of oxygen successfully. His initial leukocytosis resolved. He was discharged to complete a total course of 7 days of antibiotics with Flagyl 3 times daily and cefdinir twice daily. Nausea and vomiting, resolved Mr. Interiano presented with concern for aspiration as above following an episode of nausea/vomiting. By time of presentation to the emergency department his nausea had resolved and he did not have any further episodes of emesis. His emesis was nonbloody and nonbilious. Differential included gastritis and food poisoning, CT abdomen did not show any acute abdominal pathology. He was continued on PPI and famotidine with Zofran every 4 hours as needed with no recurrence of symptoms. He was eating breakfast comfortably on day of discharge. Elevated troponin: Mr. Interiano was noted to have an elevated troponin of 0.08 on admission. He had one episode of elevated troponin in the past which had been downtrending. A single troponin was repeated and was 0.079 and likely reflecting a chronic baseline. He did not experience any chest pain, shortness of breath, or cardiac symptoms during his admission. He did not show any ST/EKG changes concerning for ACS. CELY: Patient was continued on CPAP as needed and which was tolerated well. Hypertension: He was continued on his prior to admission metoprolol and lisinopril which were continued on discharge. Atrial fibrillation: He is rate controlled on metoprolol and is not anticoagulation due to a history of hemorrhagic stroke. Rate control was continued, he did not experience any strokelike symptoms or new deficits during admission PT/OT: He was seen by physical therapy during his admission. Inpatient physical therapy or skilled services were not recommended, and he was felt to be at his normal baseline and stable/safe for discharge home. Total Time Total Time Spent Total Time Spent (In Minutes): See Attending Documentation Discharge Plan Discharge Items Patient Disposition: Home - Self-Care Reason For Visit: ASPIRATION PNEUMONIA Discharge Diagnosis: Aspiration Pneumonia Activity: Resume your previous activity Non-emergency contact: Primary Care Provider Call non-emergency contact if: you have any medication questions, your symptoms worsen, your pain is not controlled, your pain is worsening, your pain is unusual for you, your pain is concerning for you and you have a fever Follow-up/Referrals: Chester Granados MD [Primary Care Provider] - 02/18/20 3:00 pm (You have a follow up appt with Haleigh on 02/17 at 3pm . If this appt does not fit your schedule please call [phone]. Please arrive 15 minutes prior to your appt, and remember to bring your mask with you. ) Diet: Regular Addtl Attending Provider Instructions: You were seen in the hospital for shortness of breath following an episode of vomiting. You were treated for aspiration pneumonia, a type of pneumonia which can be caused by inhaling small amounts of stomach contents. You have been treated with antibiotics and were improving at time of discharge, and have had antibiotics prescribed as below. You have had appointments made for follow-up as below. You have been prescribed an antibiotic, cefdinir. Please take cefdinir 300 mg twice daily for 5 days, this will complete a total course of 7 days including antibiotics received in the hospital. This medication is loosely related to penicillin, but he tolerated a similar medicine well while in the hospital. If you develop any signs of allergy including wheezing, rash, difficulty breathing, swelling, chills, or other new or concerning symptoms please contact your primary care provider immediately, or call 911 for transport to an evaluation in the emergency department if you are very concerned. You have been prescribed a antibiotic, metronidazole. Please take metronidazole 500 mg 3 times daily for 5 days, this will complete a total course of 7 days including antibiotics received in the hospital. A followup appointment is being scheduled for you with Dr. Granados. You should be seen seen within 1 week. You should receive a call to confirm this appointment. If you do not receive a call within 48 hours to confirm this appointment, or need to change this appointment, please call the provider's office at [phone]. If you develop any new or worsening symptoms including fever, chills, sweats, chest pain, chest pressure, difficulty breathing, uncontrolled nausea/vomiting, rash, wheezing, passing out or nearly passing out, bleeding, black/bloody bowel movements, or other new or concerning symptoms please call your primary care physician at [phone], or call 911 for re-evaluation in the emergency depa rtment if you are very concerned. Pending Studies at Discharge: No Stand-Alone Forms: My [facility] [place], Smoking Cessation Medications and DC Order Prescriptions: New metronidazole 500 mg Tablet 500 mg PO TID 6 Days Qty: 18 RF: 0 cefdinir 300 mg capsule 300 mg PO BID 6 Days Qty: 12 RF: 0 Continued multivitamin Tablet 1 tab PO QAM Qty: 0 RF: 0 finasteride 5 mg Tablet 5 mg PO QAM Qty: 0 RF: 0 gabapentin 600 mg Tablet 600 mg PO Q12 Qty: 0 RF: 0 doxazosin 2 mg Tablet 2 mg PO DAILY Qty: 0 RF: 0 magnesium oxide 400 mg (241.3 mg magnesium) tablet 400 mg PO DAILY Qty: 30 RF: 5 coenzyme Q10 200 mg capsule 200 mg PO DAILY RF: 0 triamcinolone acetonide 0.1 % cream 1 appln topical BID Qty: 1 RF: 0 omeprazole 20 mg Capsule,Delayed Release(Dr/Ec) 20 mg PO QAM RF: 0 lisinopril [Zestril] 10 mg Tablet 10 mg PO QAM Qty: 30 RF: 2 tramadol 50 mg Tablet 50 mg PO Q6H PRN (Reason: Pain) RF: 0 metoprolol tartrate 50 mg tablet 50 mg PO QPM RF: 0 Metamucil 3.4 gram/5.4 gram Powder 1 tbsp PO QAM RF: 0 pravastatin 40 mg Tablet 40 mg PO DAILY RF: 0 sertraline 50 mg Tablet 75 mg PO DAILY RF: 0 Discharge Orders: Discharge Order (Routine); Ordered 02/13/20 Ordered By: Jac Chong Admission Data Admit Date/Time: 02/12/20 01:02 Attending Provider: Jd Agustin Admit Provider: Shala Bond Primary Care Provider: Chester Granados Other Providers: Sammy Lynn Other Interventions: Discharge Summary Assessment (RN) Last Done: 02/13/20 14:22 Supervising Physician Co-Signing Physician Notes Patient seen and examined [facility] PGY-2 Dr. Chong. Agree with history, exam findings, assessment and plan of care as outlined by Dr. Chong. In brief, Mr. Interiano is a 75 year old male with history of afib, HTN, prior hemorrhagic stroke, peripheral neuropathy, CELY, urge incontinence admitted with nausea, vomiting and concern for aspiration pneumonia. He is off supplemental oxygen and breathing comfortably on room air. Reviewed day of discharge VS, labs and nursing notes. 1. aspiration pneumonia. Leukocytosis is resolved (admission WBC 20-->7.8 on day of discharge). Discharge on cefdinir and flagyl x 6 more days. 2. nausea/vomiting. Resolved. 3. elevated trop. 0.081 on admission, repeat 0.079. hx of chronically elevated troponin. 4. afib. rate controlled with metoprolol. Not anticoagulated due to history of hemorrhagic stroke. 5. HTN. Controlled. continue metoprolol and lisinopril. 6. BPH. continue home doxazosin, finasteride. 7. CELY. CPAP at night. Dispo: discharge home today. I personally spent 25 minutes discharge planning for this patient. Resident Activity Tracking Resident Involvement: Resident Care Provided Care Provided: Adult Hospital Medicine
[2020-02-13 11:20] VITALS: BP 149/64; PULSE 83; O2SAT 93
== END 2020-02-13 16:08 | disposition home or self-care (01) | DRG 179 ==
LOC: ED 20:58 → 2N 02-12 01:02 → INTOOBSV 02-12 01:02 → SUATTDRO 02-12 01:02 → 2N 02-12 02:10

== ENCOUNTER 2021-04-20 19:35 | Inpatient (IN) ==
[2021-04-20] MEDS ORDERED: SODIUM CHLORIDE 0.9% 1000ML 500 ML IV ONE ×2 (20:05→20:56)
[2021-04-20] MEDS ORDERED: ONDANSETRON INJ 2 MG/ML 2 ML VIAL IV STA (20:05)
[2021-04-20] MEDS ORDERED: CEFEPIME 2,000 MG/20 ML VIAL IV STA (20:05)
[2021-04-20] MEDS ORDERED: METOPROLOL TARTRATE 1 MG/ML VIAL IV STA (20:05)
--- NOTE | 2021-04-20 20:15 | Emergency Department Note ---
Impression & Plan Atrial fibrillation with rapid ventricular response, Acute confusion, Pneumonia, Vomiting ED Provider Note NAME: IWONA WOODARD AGE: 76 SEX: M : 1945 ARRIVES VIA: Ambulance INFORMANT: [Patient][] ED PROVIDER(S): [Junior Canas MD] CHIEF COMPLAINT: Illness HISTORY OF PRESENT ILLNESS: The patient is a 76-year-old male with a history of previous CVA affecting his left side. He has minimal movement of his left leg and really no movement of his left arm. He typically is oriented x3 though. Today, he was weaker and more tired than normal. He laid down around 4 h ago and was found about an hour to an hour and a half ago covered in vomit. He was acting differently and could not get his words out properly. He complained of some abdominal pain. EMS was [place]. On the way here, he had a BSG of 156. He was given 4 mg Zofran IV. His is currently at the bedside and she is concerned for aspiration as he has had this issue before with an episode of vomiting. There has been no fever. The patient is vaccinated against COVID-19. There has been no sick contacts. The patient has had A. fib before although, he did well after an ablation. He is not currently on any anticoagulation. EMS noted he was in A. fib in route to the hospital. Given the mental status change, no further history obtainable. REVIEW OF SYSTEMS: Unobtainable given the mental state. PMHx/PSHx: See Below SOCIAL HISTORY: See Below. PHYSICAL EXAM: GENERAL: Patient is in mild distress. HEENT: No acute trauma, normocephalic atraumatic, mucous membranes moist, no nasal congestion, no scleral icterus. There is some dried vomit on his rodriguez. NECK: No stridor, no adenopathy, no meningismus, trachea is midline. LUNGS: Clear to auscultation bilaterally, no wheeze, no rhonchi, breath sounds equal. HEART: Tachycardic, somewhat irregular, no murmurs. ABDOMEN: Soft, nontender, bowel sounds positive, no hernias, no peritonitis. Some abdominal distention was noted. EXTREMITIES: Patient does have some left lower extremity edema when compared to the right. No gross deformities to the extremities to suggest trauma. NEUROLOGIC: Awake. Nonverbal. Minimal movement of the left lower extremity, no real movement of the left upper extremity. SKIN: No rash, no jaundice, no diaphoresis. DIFFERENTIAL DIAGNOSIS: Infection, dehydration, metabolic abnormality, hypo/hyperglycemia, A. fib, a flutter, aspiration, COVID-19, electrolyte disturbance, anemia, hypoxia, cardiac sources, intracerebral event, toxicologic issues, stroke, TIA, as well as other pathologies. EMERGENCY DEPARTMENT COURSE/PROCEDURES: ECG: Indication was tachycardia. The ECG shows what I believed to be atrial fibrillation or atrial flutter with a rate of 132. There is a right bundle branch block present. There is no ST elevation, no PVCs. The QTc is 483. Compared to an ECG from 02/11/2020, the rate has increased. Continuous Cardiac Monitoring: An order was placed for continuous cardiac monitoring. The monitor shows a rate of 129 with atrial fibrillation. Critical Care Note: I have personally spent 53 minutes of critical care time in the direct management of this patient. This includes bedside care, interpretation of diagnostic studies, and testing, discussion with consultants, patient, and family members, and other required patient management activities. This 53 minutes is in excess of all separately billable procedures. MEDICAL DECISION MAKING: There is a significant leukocytosis at around 20,000, this could be consistent with infection. There is a normal hemoglobin and platelet count. No coagulopathy. No significant electrolyte abnormality or kidney failure. Lactic acid level is elevated consistent with potential sepsis and/or dehydration. No liver enzyme elevation. ECG showed a rapid atrial fibrillation with a right bundle branch block. No ST elevation. Cardiac enzyme testing x1 does show a slight elevation however, this has been documented before. The troponin elevation may be chronic. The patient appeared to be in a euthyroid state. Covid testing was negative. Chest film shows some congestion at both lung bases, no heart failure. Brain CT shows no acute bleed or mass-effect. Abdominal and pelvis CT does not show any bowel obstruction. Bilateral lower lung pneumonia was seen. The patient was aggressively managed. He was given IV Lopressor because of his tachycardia and hypertension. This did control the blood pressure and heart rate. He received IV Zofran for nausea, he was given IV saline, about 1 L. He received IV cefepime as empiric antibiotic coverage. With the above treatment, the patient is markedly improved. He is now talking and back to his mental baseline as per his . At this point, the cause for this entire presentation is unclear. Certainly, his pneumonia could be responsible, I considered the possibility of seizure as he does have a known stroke history. His rapid A. fib I am sure was a large part of his presentation. The patient deserves a hospital stay and further work-up/care. I did speak with the patient and case management, I spoke with his . The on-call hospitalist was consulted. Past Med/Surg History Medical History Abdominal pain Acute cholecystitis Acute cholecystitis without calculus Acute deep vein thrombosis (DVT) of popliteal vein of left lower extremity Anemia Aspiration pneumonia Atrial flutter s/p cardioversion 2005. Recurrent atrial flutter 2016 treated with radiofrequency ablation. Bifascicular block dating past 2016 BPH (benign prostatic hyperplasia) Cholangitis due to bile duct calculus with obstruction Choledocholithiasis Choledocholithiasis with acute cholecystitis Chronic anticoagulation For DVT/PE 01/2018 Coronary artery disease Status post RCA stent 2006. 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 Hx of deep venous thrombosis Hx of gastroesophageal reflux (GERD) controlled with meds Hx pulmonary embolism Hyperlipidemia Leukocytosis Nausea & vomiting Nonsustained ventricular tachycardia Obesity (BMI 30-39.9) Obstructive sleep apnea with CPAP; no home O2 Osteoarthritis Pulmonary emboli Extensive bilateral, 01/2018 causing ARF, subsequently started on warfarin. Sepsis admitted [facility] 04/27 - 05/09 for cholangitis 2/2 obstructing bile duct calculus Spinal stenosis Stroke Wide-complex tachycardia Surgical History H/O umbilical hernia repair History of cardiac radiofrequency ablation History of cardioversion History of cholecystectomy History of colonoscopy History of endoscopic retrograde cholangiopancreatography History of tonsillectomy S/P cardiac cath 2 stents total - 2006 1 stent placed. 12/2016 - [facility] - 1 stent placed. Family History Father Coronary heart disease Cardiac disorder Mother Coronary heart disease Diabetes Hypertension Cardiac disorder Brother Coronary heart disease Diabetes Cardiac disorder Sister Coronary heart disease Diabetes Cardiac disorder Denies family history of Prostate cancer Colorectal cancer Colonic polyp Social History Smoking Status: Former smoker Second Hand Exposure: No; Hx Alcohol Use: No Hx Substance Use: No Preferred Language: Irish Communication Ability: Effective Certified Indoor Environmentalist Required: No Beliefs That Will Affect Care: None marital status: Current Living Situation: Spouse current occupational status: 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 Feels Safe at Home: Yes Physical Activity Frequency: Other Physical Activity Frequency Comment: limited due to physical condition Assistive Devices: CPAP and Hearing Aid - Bilateral Allergies Allergies Allergy/AdvReac Type Severity Reaction Status Date / Time Jewdmfp-Teb-Vbo Reductase AdvReac Unknown "WEAK" Verified 04/14/21 13:13 Inhibitor Home Meds Home Medications Medication Instructions Recorded Confirmed multivitamin 1 tab PO QAM #0 05/08/09 04/20/21 finasteride 5 mg tablet 5 mg PO QAM #0 tab 01/26/15 04/20/21 omeprazole 20 mg capsule,delayed 20 mg PO QAM 05/07/18 04/20/21 release metoprolol tartrate 50 mg tablet 50 mg PO QPM 06/14/18 04/20/21 tramadol 50 mg tablet 50 mg PO Q6H PRN 06/14/18 04/20/21 aspirin 81 mg tablet,delayed 81 mg PO DAILY 09/10/20 04/20/21 release cbd cream 1 applic TOPICAL DIRECTED PRN 09/10/20 04/20/21 cholecalciferol (vitamin D3) 50 50 mcg PO DAILY 09/10/20 04/20/21 mcg (2,000 unit) capsule ascorbic acid (vitamin C) 250 mg 250 mg PO DAILY 11/19/20 04/20/21 tablet calcium carb-vit [id number] 1 tab PO DAILY 11/19/20 04/20/21 333 mg-200 unit-133 mg-5 mg tablet gabapentin 300 mg capsule 600 mg PO BID cap 11/19/20 04/20/21 pravastatin 40 mg tablet 40 mg PO HS tab 11/19/20 04/20/21 sertraline 50 mg tablet 25 mg PO DAILY tab 01/11/21 04/20/21 diclofenac sodium 1 % topical gel 2 g TOPICAL QID PRN 02/25/21 04/20/21 Previous Rx's Medication Instructions Recorded Wheelchair (Powered) (Power See Rx Instructions .ROUTE 06/28/20 Wheelchair) .COMPLEX #1 ea lisinopril 20 mg tablet 20 mg PO DAILY #90 tab 11/09/20 Results & Data (ED) Vital Signs Vital Signs - 24 hr 04/20/21 19:51 04/20/21 19:54 04/20/21 20:04 Temperature 37.5 C Temperature Source Oral Pulse Rate 128 H 129 H Pulse Rate from SpO2 Sensor 128 H Respiratory Rate 34 H 17 Blood Pressure 173/113 H 173/113 H Blood Pressure Mean 133 133 Pulse Oximetry 92 88 L 93 Oxygen Delivery Method Room Air Nasal Cannula Oxygen Flow Rate 2 Sepsis Recent Fever Within 48 Hours No Sepsis New/Unexplained Change in Mental Status Yes Sepsis Action Taken by Nursing Physician Notified 04/20/21 20:08 04/20/21 20:18 04/20/21 20:23 Temperature Temperature Source Pulse Rate 120 H 135 H Pulse Rate from SpO2 Sensor 130 H Respiratory Rate 33 H Blood Pressure 149/82 H 149/52 H Blood Pressure Mean 104 Pulse Oximetry 93 94 Oxygen Delivery Method Nasal Cannula Oxygen Flow Rate 2 Sepsis Recent Fever Within 48 Hours Sepsis New/Unexplained Change in Mental Status Sepsis Action Taken by Nursing 04/20/21 20:39 04/20/21 20:44 04/20/21 21:01 Temperature Temperature Source Pulse Rate 98 H 97 H Pulse Rate from SpO2 Sensor 98 H Respiratory Rate 20 25 H Blood Pressure 161/81 H 128/85 Blood Pressure Mean 107 99 Pulse Oximetry 99 96 Oxygen Delivery Method Oxygen Flow Rate Sepsis Recent Fever Within 48 Hours Sepsis New/Unexplained Change in Mental Status Sepsis Action Taken by Nursing 04/20/21 21:33 04/20/21 22:00 04/20/21 22:31 Temperature Temperature Source Pulse Rate 94 H 89 89 Pulse Rate from SpO2 Sensor 94 H 89 89 Respiratory Rate 22 25 H 24 Blood Pressure 126/63 142/51 H 128/84 Blood Pressure Mean 84 81 98 Pulse Oximetry 98 97 97 Oxygen Delivery Method Nasal Cannula Nasal Cannula Nasal Cannula Oxygen Flow Rate 2 2 2 Sepsis Recent Fever Within 48 Hours Sepsis New/Unexplained Change in Mental Status Sepsis Action Taken by Nursing 04/20/21 23:00 Temperature Temperature Source Pulse Rate 85 Pulse Rate from SpO2 Sensor 86 Respiratory Rate 22 Blood Pressure 130/62 Blood Pressure Mean 84 Pulse Oximetry 97 Oxygen Delivery Method Nasal Cannula Oxygen Flow Rate 2 Sepsis Recent Fever Within 48 Hours Sepsis New/Unexplained Change in Mental Status Sepsis Action Taken by [facility] Medications Current Medication List: was personally reviewed by me Laboratory Data Attestation: I reviewed the patient's lab results. Result diagrams: 04/20/21 20:05 04/20/21 20:05 Lab Results 04/20/21 04/20/21 04/20/21 Range/Units 20:05 20:05 20:05 WBC (4.8-10.8) K/uL RBC (4.7-6.1) M/uL Hgb (14.0-18.0) g/dL Hct (42-52) % MCV (80-100) fL MCH (25-34) pg MCHC (32-36) g/dL RDW Std Deviation (36.4-46.3) fL RDW Coeff of Jeyson (11.5-14.5) % Plt Count (130-400) K/uL MPV (7.4-10.4) fL Immature Gran % (Auto) % Neut % (Auto) % Lymph % (Auto) % Josephine % (Auto) % Eos % (Auto) % Baso % (Auto) % Neut # (Auto) (1.4-6.5) K/uL Lymph # (Auto) (1.2-3.4) K/uL Josephine # (Auto) (0.11-0.59) K/uL Eos # (Auto) (0-0.5) K/uL Baso # (Auto) (0-0.2) K/uL Immature Gran # (Auto) (0.00-0.02) K/uL PT 10.0 (9.0-12.0) Seconds INR 1.0 (0.9-1.1) APTT 23.2 (21.0-31.0) Seconds PTT Ratio 0.9 Sodium 139 (136-145) mmol/L Potassium 4.1 (3.5-5.1) mmol/L Chloride 108 H (98-107) mmol/L Carbon Dioxide 23 (21-32) mmol/L Anion Gap 9.0 (3-11) BUN 14 (7-18) mg/dl Creatinine 0.93 (0.6-1.4) mg/dl Est Cr Clr Drug Dosing 85.0 ml/min Est GFR ( Amer) 90.8 ml/min Est GFR (Non-Af Amer) 78.4 ml/min BUN/Creatinine Ratio 14.6 (10-20) Glucose 160 H (70-99) mg/dl Lactate 2.7 H* (0.4-2.0) mmol/L Calcium 8.8 (8.5-10.1) mg/dl Magnesium 2.2 (1.8-2.4) mg/dl Total Bilirubin 0.4 (0.2-1) mg/dl AST 23 (15-37) U/L ALT 28 (12-78) U/L Alkaline Phosphatase 96 (45-117) U/L Troponin I 0.058 H* (0-0.045) ng/ml Total Protein 7.7 (6.4-8.2) gm/dl Albumin 3.2 L (3.4-5.0) gm/dl Globulin 4.5 H (2.5-4.0) gm/dl Albumin/Globulin Ratio 0.7 L (0.9-2) TSH 1.480 (0.300-4.500) uIu/ml COVID-19 Eval Order SARS-CoV-2 (PCR) (Negative) 04/20/21 04/20/21 04/20/21 Range/Units 20:05 20:42 20:42 WBC 19.99 H (4.8-10.8) K/uL RBC 4.83 (4.7-6.1) M/uL Hgb 15.0 (14.0-18.0) g/dL Hct 42.7 (42-52) % MCV 88.4 (80-100) fL MCH 31.1 (25-34) pg MCHC 35.1 (32-36) g/dL RDW Std Deviation 45.5 (36.4-46.3) fL RDW Coeff of Jeyson 14.0 (11.5-14.5) % Plt Count 221 (130-400) K/uL MPV 10.2 (7.4-10.4) fL Immature Gran % (Auto) 0.3 % Neut % (Auto) 89.8 % Lymph % (Auto) 4.8 % Josephine % (Auto) 4.5 % Eos % (Auto) 0.5 % Baso % (Auto) 0.1 % Neut # (Auto) 17.97 H (1.4-6.5) K/uL Lymph # (Auto) 0.96 L (1.2-3.4) K/uL Josephine # (Auto) 0.90 H (0.11-0.59) K/uL Eos # (Auto) 0.10 (0-0.5) K/uL Baso # (Auto) 0.01 (0-0.2) K/uL Immature Gran # (Auto) 0.05 H (0.00-0.02) K/uL PT (9.0-12.0) Seconds INR (0.9-1.1) APTT (21.0-31.0) Seconds PTT Ratio Sodium (136-145) mmol/L Potassium (3.5-5.1) mmol/L Chloride (98-107) mmol/L Carbon Dioxide (21-32) mmol/L Anion Gap (3-11) BUN (7-18) mg/dl Creatinine (0.6-1.4) mg/dl Est Cr Clr Drug Dosing ml/min Est GFR ( Amer) ml/min Est GFR (Non-Af Amer) ml/min BUN/Creatinine Ratio (10-20) Glucose (70-99) mg/dl Lactate (0.4-2.0) mmol/L Calcium (8.5-10.1) mg/dl Magnesium (1.8-2.4) mg/dl Total Bilirubin (0.2-1) mg/dl AST (15-37) U/L ALT (12-78) U/L Alkaline Phosphatase (45-117) U/L Troponin I (0-0.045) ng/ml Total Protein (6.4-8.2) gm/dl Albumin (3.4-5.0) gm/dl Globulin (2.5-4.0) gm/dl Albumin/Globulin Ratio (0.9-2) TSH (0.300-4.500) uIu/ml COVID-19 Eval Order Covid19 at [facility] SARS-CoV-2 (PCR) NEGATIVE (Negative) 04/20/21 Range/Units 21:50 WBC (4.8-10.8) K/uL RBC (4.7-6.1) M/uL Hgb (14.0-18.0) g/dL Hct (42-52) % MCV (80-100) fL MCH (25-34) pg MCHC (32-36) g/dL RDW Std Deviation (36.4-46.3) fL RDW Coeff of Jeyson (11.5-14.5) % Plt Count (130-400) K/uL MPV (7.4-10.4) fL Immature Gran % (Auto) % Neut % (Auto) % Lymph % (Auto) % Josephine % (Auto) % Eos % (Auto) % Baso % (Auto) % Neut # (Auto) (1.4-6.5) K/uL Lymph # (Auto) (1.2-3.4) K/uL Josephine # (Auto) (0.11-0.59) K/uL Eos # (Auto) (0-0.5) K/uL Baso # (Auto) (0-0.2) K/uL Immature Gran # (Auto) (0.00-0.02) K/uL PT (9.0-12.0) Seconds INR (0.9-1.1) APTT (21.0-31.0) Seconds PTT Ratio Sodium (136-145) mmol/L Potassium (3.5-5.1) mmol/L Chloride (98-107) mmol/L Carbon Dioxide (21-32) mmol/L Anion Gap (3-11) BUN (7-18) mg/dl Creatinine (0.6-1.4) mg/dl Est Cr Clr Drug Dosing ml/min Est GFR ( Amer) ml/min Est GFR (Non-Af Amer) ml/min BUN/Creatinine Ratio (10-20) Glucose (70-99) mg/dl Lactate 2.5 H* (0.4-2.0) mmol/L Calcium (8.5-10.1) mg/dl Magnesium (1.8-2.4) mg/dl Total Bilirubin (0.2-1) mg/dl AST (15-37) U/L ALT (12-78) U/L Alkaline Phosphatase (45-117) U/L Troponin I (0-0.045) ng/ml Total Protein (6.4-8.2) gm/dl Albumin (3.4-5.0) gm/dl Globulin (2.5-4.0) gm/dl Albumin/Globulin Ratio (0.9-2) TSH (0.300-4.500) uIu/ml COVID-19 Eval Order SARS-CoV-2 (PCR) (Negative) Administered Medications Sodium Chloride (Nss 1000ml) 1,000 mls @ 999 mls/hr IV .Q1H1M STA Stop: 04/20/21 23:40 Last Admin: 04/20/21 22:45 Dose: 999 mls/hr Documented by: [id number] Discontinued Medications Sodium Chloride (Nss 1000ml) 500 mls @ 999 mls/hr IV .Q31M ONE Stop: 04/20/21 20:35 Last Infusion: 04/20/21 21:01 Dose: 0 mls/hr Documented by: [id number] Admin: 04/20/21 20:19 Dose: 999 mls/hr Documented by: [id number] Cefepime HCl (Maxipime) 2,000 mg in 20 mls @ 5 mls/min IV NOW STA; Protocol Stop: 04/20/21 20:08 Last Admin: 04/20/21 20:49 Dose: 5 mls/min Documented by: [id number] Sodium Chloride (Nss 1000ml) 500 mls @ 999 mls/hr IV .Q31M ONE Stop: 04/20/21 21:26 Last Infusion: 04/20/21 21:45 Dose: 0 mls/hr Documented by: [id number] Admin: 04/20/21 20:58 Dose: 999 mls/hr Documented by: [id number] Metoprolol Tartrate (Metoprolol Tartrate 1 Mg/Ml Vial) 5 mg IV NOW STA Stop: 04/20/21 20:06 Last Admin: 04/20/21 20:18 Dose: 5 mg Documented by: [id number] Ondansetron HCl (Ondansetron Inj 2 Mg/Ml 2 Ml Vial) 4 mg IV NOW STA Stop: 04/20/21 20:06 Last Admin: 04/20/21 20:18 Dose: 4 mg Documented by: [id number] Imaging Data Radiologist's Impression: Head CT 04/20/21 20:05 CT OF THE HEAD WITHOUT CONTRAST CLINICAL HISTORY: confusion COMPARISON STUDY: Head CT February 11, 2020. TECHNIQUE: Helical axial images of the head were obtained without IV contrast. Automated exposure control was utilized for the study. A dose lowering technique was utilized adhering to the principles of ALARA. FINDINGS: No acute intracranial hemorrhage, midline shift or mass effect is present. The ventricular system is stable. An old infarct within the right basal ganglia is again noted which extends into the right thalamus. White matter hypodensity suggests small vessel disease. The basal cisterns are patent. No extra-axial collections are present. There are no findings to suggest acute dural sinus thrombosis or acute territorial infarct. No significant calvarial abnormalities are present. IMPRESSION: No acute intracranial findings. No change in appearance of the brain. Old right basal ganglia infarct. ACT 112: Negative or not required by law. Electronically signed by: Daniel Kumar M.D. 04/20/2021 8:54 PM Chest X-Ray 04/20/21 20:07 XR chest 1V portable CLINICAL HISTORY: weakness COMPARISON STUDY: Chest radiograph February 11, 2020. FINDINGS: Lung volumes are normal. There is no pneumothorax or pleural effusion. Cardiomegaly is unchanged. There are minimal bibasilar opacities. There is pulmonary vascular congestion without overt pulmonary edema. IMPRESSION: 1. Cardiomegaly. Pulmonary vascular congestion without overt pulmonary edema. 2. Mild bibasilar opacities. Atelectasis is favored although an infectious process could appear similar. ACT 112: Negative or not required by law. Electronically signed by: Daniel Kumar M.D. 04/20/2021 8:32 PM Abdomen/Pelvis CT 04/20/21 20:08 CT OF THE ABDOMEN AND PELVIS WITHOUT CONTRAST CLINICAL HISTORY: Nausea and vomiting. COMPARISON STUDY: CT of the abdomen and pelvis February 11, 2020. TECHNIQUE: Axial images of the abdomen and pelvis were obtained without IV contrast. Images were reviewed in the axial, sagittal, and coronal planes. Automated exposure control was utilized for the study. A dose lowering technique was utilized adhering to the principles of ALARA. FINDINGS: Visualized portions of the lower chest demonstrate cardiomegaly. In addition, there are moderate alveolar opacities within the lower lungs. Relatively similar findings were shown on prior CT of February 11, 2020. This exam is compromised by body wall contacting the gantry with resultant artifact. Right renal lesions were shown to reflect cysts on prior contrast enhanced CT. No evidence for a bowel obstruction. No pneumatosis, free air or portal venous gas is present. Unenhanced images of the liver are unremarkable with exception of a suspected lateral segment cyst. The spleen, adrenal glands and pancreas are unremarkable. There is no hydronephrosis. There is no evidence for a bowel obstruction. No lymphadenopathy is present. No free fluid is present. No acute fracture or suspicious lesion is identified within the visualized skeletal structures. There are no urinary calculi. IMPRESSION: 1. Moderate bilateral lower lung airspace opacities which favor an infectious process. 2. No acute process within the abdomen or pelvis on unenhanced exam. 3. No bowel obstruction. 4. Exam compromised by body wall contacting the gantry with resultant artifact. ACT 112: Negative or not required by law. Electronically signed by: Daniel Kumar M.D. 04/20/2021 8:45 PM Discharge Plan Visit Data Chief Complaint: Illness Stated Complaint: Afib ED Provider: Junior Canas Discharge Problem: Atrial fibrillation with rapid ventricular response, Acute confusion, Pneumonia, Vomiting Patient Disposition: Admitted As Inpatient Condition: Fair Forms Stand Alone Forms: [facility] Prescriptions Prescriptions: No Action cholecalciferol (vitamin D3) 50 mcg (2,000 unit) capsule 50 mcg PO DAILY RF: 0 aspirin 81 mg tablet,delayed release (DR/EC) 81 mg PO DAILY RF: 0 cbd cream 1 applic topical DIRECTED PRN (Reason: Pain) RF: 0 diclofenac sodium 1 % gel 2 g topical QID PRN (Reason: Pain) RF: 0 multivitamin Tablet 1 tab PO QAM Qty: 0 RF: 0 finasteride 5 mg Tablet 5 mg PO QAM Qty: 0 RF: 0 calcium carb-D3-mag [id number]-mg tablet 1 tab PO DAILY RF: 0 ascorbic acid (vitamin C) 250 mg tablet 250 mg PO DAILY RF: 0 gabapentin 300 mg capsule 600 mg PO BID RF: 0 Power Wheelchair Device See Rx Instructions .ROUTE .COMPLEX Qty: 1 RF: 0 lisinopril 20 mg tablet 20 mg PO DAILY Qty: 90 RF: 3 omeprazole 20 mg Capsule,Delayed Release(Dr/Ec) 20 mg PO QAM RF: 0 tramadol 50 mg Tablet 50 mg PO Q6H PRN (Reason: Pain) RF: 0 metoprolol tartrate 50 mg tablet 50 mg PO QPM RF: 0 pravastatin 40 mg tablet 40 mg PO HS RF: 0 sertraline 50 mg tablet 25 mg PO DAILY RF: 0 Referrals Referrals: Rolo Richards MD [Outside Practitioners] -
[2021-04-20 20:21] LABS: Basophils # (auto) 0.01 K/uL (0-0.2); Basophils % (auto) 0.1 %; Eosinophils % (auto) 0.5 %; Hematocrit (blood only) 42.7 % (42-52); Immature Granulocytes # (auto) 0.05 K/uL (0.00-0.02); Immature Granulocytes % (auto) 0.3 %; Lymphocytes # (auto) 0.96 K/uL (1.2-3.4); Lymphocytes % (auto) 4.8 %; Mean Corpuscular Hemoglobin 31.1 pg (25-34); Mean Corpuscular Hgb Conc 35.1 g/dL (32-36); Mean Corpuscular Volume 88.4 fL (80-100); Mean Platelet Volume 10.2 fL (7.4-10.4); Monocytes % (auto) 4.5 %; Neutrophils # (auto) 17.97 K/uL (1.4-6.5); Neutrophils % (auto) 89.8 %; Platelet Count 221 K/uL (130-400); RDW Standard Deviation 45.5 fL (36.4-46.3); Red Blood Count 4.83 M/uL (4.7-6.1); White Blood Count 19.99 K/uL (4.8-10.8)
[2021-04-20 20:31] LABS: Partial Thromboplastin Ratio 0.9; Partial Thromboplastin Time 23.2 Seconds (21.0-31.0)
--- NOTE | 2021-04-20 20:33 | XRay Report ---
XR chest 1V portable CLINICAL HISTORY: weakness COMPARISON STUDY: Chest radiograph February 11, 2020. FINDINGS: Lung volumes are normal. There is no pneumothorax or pleural effusion. Cardiomegaly is unch anged. There are minimal bibasilar opacities. There is pulmonary vascular congestion without overt pu lmonary edema. IMPRESSION: 1. Cardiomegaly. Pulmonary vascular congestion without overt pulmonary edema. 2. Mild bibasilar opacities. Atelectasis is favored although an infectious process could appear simil ar. ACT 112: Negative or not required by law. Electronically signed by: Daniel Kumar M.D. 04/20/2021 8:32 PM
[2021-04-20 20:38] LABS: Albumin Level 3.2 gm/dl (3.4-5.0); BUN Creatinine Ratio 14.6 (10-20); Calcium 8.8 mg/dl (8.5-10.1); Est GFR (African American) 90.8 ml/min; Est GFR (Non-African American) 78.4 ml/min; Magnesium 2.2 mg/dl (1.8-2.4); Potassium 4.1 mmol/L (3.5-5.1)
--- NOTE | 2021-04-20 20:47 | CT Scan Report ---
CT OF THE ABDOMEN AND PELVIS WITHOUT CONTRAST CLINICAL HISTORY: Nausea and vomiting. COMPARISON STUDY: CT of the abdomen and pelvis February 11, 2020. TECHNIQUE: Axial images of the abdomen and pelvis were obtained without IV contrast. Images were revi ewed in the axial, sagittal, and coronal planes. Automated exposure control was utilized for the singh dy. A dose lowering technique was utilized adhering to the principles of ALARA. FINDINGS: Visualized portions of the lower chest demonstrate cardiomegaly. In addition, there are mod erate alveolar opacities within the lower lungs. Relatively similar findings were shown on prior CT o f February 11, 2020. This exam is compromised by body wall contacting the gantry with resultant artifact. Right renal lesions were shown to reflect cysts on prior contrast enhanced CT. No evidence for a bow el obstruction. No pneumatosis, free air or portal venous gas is present. Unenhanced images of the li micheal are unremarkable with exception of a suspected lateral segment cyst. The spleen, adrenal glands a nd pancreas are unremarkable. There is no hydronephrosis. There is no evidence for a bowel obstructio n. No lymphadenopathy is present. No free fluid is present. No acute fracture or suspicious lesion is identified within the visualized skeletal structures. There are no urinary calculi. IMPRESSION: 1. Moderate bilateral lower lung airspace opacities which favor an infectious process. 2. No acute process within the abdomen or pelvis on unenhanced exam. 3. No bowel obstruction. 4. Exam compromised by body wall contacting the gantry with resultant artifact. ACT 112: Negative or not required by law. Electronically signed by: Daniel Kumar M.D. 04/20/2021 8:45 PM
--- NOTE | 2021-04-20 20:56 | CT Scan Report ---
CT OF THE HEAD WITHOUT CONTRAST CLINICAL HISTORY: confusion COMPARISON STUDY: Head CT February 11, 2020. TECHNIQUE: Helical axial images of the head were obtained without IV contrast. Automated exposure con trol was utilized for the study. A dose lowering technique was utilized adhering to the principles o f ALARA. FINDINGS: No acute intracranial hemorrhage, midline shift or mass effect is present. The ventricular system is stable. An old infarct within the right basal ganglia is again noted which extends into the right thalamus. White matter hypodensity suggests small vessel disease. The basal cisterns are paten t. No extra-axial collections are present. There are no findings to suggest acute dural sinus thrombo sis or acute territorial infarct. No significant calvarial abnormalities are present. IMPRESSION: No acute intracranial findings. No change in appearance of the brain. Old right basal ga nglia infarct. ACT 112: Negative or not required by law. Electronically signed by: Daniel Kumar M.D. 04/20/2021 8:54 PM
[2021-04-20 20:59] LABS: Albumin Globulin Ratio 0.7 (0.9-2); Bilirubin,Total 0.4 mg/dl (0.2-1); Globulin 4.5 gm/dl (2.5-4.0); Thyroid Stimulating Hormone 1.48 uIu/ml (0.300-4.500); Total Protein 7.7 gm/dl (6.4-8.2); Troponin I 0.058 ng/ml (0-0.045)
--- NOTE | 2021-04-20 21:11 | History & Physical Report ---
Date of Service April 20, 2021 Assessment & Plan (1) Acute confusion: Plan: 76-year-old male with CELY, hypertension, hyperlipidemia, coronary artery disease status post stent, CVA causing left hemiparesis, BPH admitted to the hospital for management of pneumonia with hypoxia. Community-acquired pneumonia CT abdomen pelvis showing bibasilar infiltrate likely infectious process more likely pneumonia preceded emesis episode rather than vice versa Low suspicion of aspiration causing confusion episode given that it cleared after hydration Received 1 dose of cefepime in the ER, converted to ceftriaxone MRSA nares positive, blood cultures pending MRSA pneumonia at this time given nontoxic appearance WBC elevated to almost 20 K however patient is not tachycardic, tachypneic or febrile at this time. Received 3 L fluid bolus in ER, now on maintenance rate Chronic conditions A. fib status post ablation: Rate controlled with metoprolol, now sinus rhythm BPH: Continue finasteride Hypertension: continue lisinopril, metoprolol. CPAP nightly Hemiparesis/body aches: Continue home gabapentin - CAD: Continue daily ASA, statin Depression: Continue sertraline Gluteal pain: Pressure ulcer checks and precautions, continue home tramadol 50 mg p.o. every 6 as needed (patient usually only takes twice a day) DVT ppx: heparin FEN/GI: Carb Consistent/pantoprazole Bowel regimen: miralax prn Code Status: full code Dispo: med/surg (2) Pneumonia: (3) Thoracic aortic aneurysm: (4) Hypertension: (5) Dyslipidemia: (6) History of hemorrhagic cerebrovascular accident (CVA) with residual deficit: (7) Coronary artery disease: (8) Obstructive sleep apnea: (9) Atrial fibrillation with rapid ventricular response: (10) Vomiting: (11) Depression: (12) Aneurysm of descending thoracic aorta: (13) Diabetes mellitus type 2 in obese: (14) Hyperlipidemia: (15) Obesity (BMI 30-39.9): History of Present Illness Primary Care Provider: Rolo Richards MD 76-year-old male with past medical history of CVA causing left-sided hemiparesis, CELY, morbid obesity, GERD, dyslipidemia, CAD, BPH, thoracic aorta aneurysm, type 2 diabetes, hyperlipidemia who presents to the emergency department for acute confusion. His was at bedside states that he has been feeling fatigued and ill for the past few days. She states that before she thought that it was just because they have been going to the [employer] and he was more tired because of those outings. She states that it was abnormal for him to have been sleeping through the night and then also taking a daytime nap. Earlier today there was an episode where he was alone and when she came back to find him he was covered in his own vomit and somewhat confused. At this time she brought him to the emergency department. They deny him having any fevers or chills at home but he was having some trouble breathing. He does have a history of CELY and a remote history of cigarette smoking for about 8 years 30 years ago. He does not have a diagnosis of COPD. He does not use oxygen at home. Upon arrival to the ER he initially was in a rapid ventricular rate with A. fib but improved after receiving fluids and a 5 mg metoprolol IV dose. When I met him at bedside he stated that he felt much better and wished to go home. He did have a new oxygen requirement of 3 L of oxygen at the time. He states that he otherwise felt well and his corroborated that he was no longer confused after getting the fluid administrations. Allergies Allergy/AdvReac Type Severity Reaction Status Date / Time [id number]-Chg-Wmo Reductase AdvReac Unknown "WEAK" Verified 04/14/21 13:13 Inhibitor Home Medications Medication Instructions Recorded Confirmed Type multivitamin 1 tab PO QAM #0 05/08/09 04/20/21 History finasteride 5 mg tablet 5 mg PO QAM #0 tab 01/26/15 04/20/21 History omeprazole 20 mg capsule,delayed 20 mg PO QAM 05/07/18 04/20/21 History release metoprolol tartrate 50 mg tablet 50 mg PO QPM 06/14/18 04/20/21 History tramadol 50 mg tablet 50 mg PO Q6H PRN 06/14/18 04/20/21 History Wheelchair (Powered) (Power See Rx Instructions .ROUTE 06/28/20 04/20/21 Rx Wheelchair) .COMPLEX #1 ea aspirin 81 mg tablet,delayed 81 mg PO DAILY 09/10/20 04/20/21 History release cbd cream 1 applic TOPICAL DIRECTED PRN 09/10/20 04/20/21 History cholecalciferol (vitamin D3) 50 50 mcg PO DAILY 09/10/20 04/20/21 History mcg (2,000 unit) capsule lisinopril 20 mg tablet 20 mg PO DAILY #90 tab 11/09/20 04/20/21 Rx ascorbic acid (vitamin C) 250 mg 250 mg PO DAILY 11/19/20 04/20/21 History tablet calcium carb-vit [id number]-[id number] 1 tab PO DAILY 11/19/20 04/20/21 History 333 mg-200 unit-133 mg-5 mg tablet gabapentin 300 mg capsule 600 mg PO BID cap 11/19/20 04/20/21 History pravastatin 40 mg tablet 40 mg PO HS tab 11/19/20 04/20/21 History sertraline 50 mg tablet 25 mg PO DAILY tab 01/11/21 04/20/21 History diclofenac sodium 1 % topical gel 2 g TOPICAL QID PRN 02/25/21 04/20/21 History Past Med/Surg History Medical History (Updated 04/21/21 @ 04:36 by Myriam Tang MD) Abdominal pain Acute cholecystitis Acute cholecystitis without calculus Acute deep vein thrombosis (DVT) of popliteal vein of left lower extremity Anemia Aspiration pneumonia Atrial flutter s/p cardioversion 2005. Recurrent atrial flutter 2016 treated with radiofrequency ablation. Bifascicular block dating past 2016 BPH (benign prostatic hyperplasia) Cholangitis due to bile duct calculus with obstruction Choledocholithiasis Choledocholithiasis with acute cholecystitis Chronic anticoagulation For DVT/PE 01/2018 Coronary artery disease Status post RCA stent 2006. 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 Hx of deep venous thrombosis Hx of gastroesophageal reflux (GERD) controlled with meds Hx pulmonary embolism Hyperlipidemia Leukocytosis Nausea & vomiting Nonsustained ventricular tachycardia Obesity (BMI 30-39.9) Obstructive sleep apnea with CPAP; no home O2 Osteoarthritis Pulmonary emboli Extensive bilateral, 01/2018 causing ARF, subsequently started on warfarin. Sepsis admitted [facility] 04/27 - 05/09 for cholangitis 2/2 obstructing bile duct calculus Spinal stenosis Stroke Wide-complex tachycardia Surgical History (Updated 04/21/21 @ 04:36 by Myriam Tang MD) H/O umbilical hernia repair History of cardiac radiofrequency ablation History of cardioversion History of cholecystectomy History of colonoscopy History of coronary artery stent placement History of endoscopic retrograde cholangiopancreatography History of tonsillectomy S/P cardiac cath 2 stents total - 2006 1 stent placed. 12/2016 - [facility] - 1 stent placed. Family History (Reviewed 12/25/20 @ 10:16 by Jorge Fraser Jr, MD, [facility]) Father Coronary heart disease Cardiac disorder Mother Coronary heart disease Diabetes Hypertension Cardiac disorder Brother Coronary heart disease Diabetes Cardiac disorder Sister Coronary heart disease Diabetes Cardiac disorder Denies family history of Prostate cancer Colorectal cancer Colonic polyp Social History Smoking Status: Former smoker Second Hand Exposure: No; Hx Alcohol Use: Yes Alcohol type: wine Hx Substance Use: No Preferred Language: Hebrew Communication Ability: Effective Clinical Informatics Strategist Required: No Beliefs That Will Affect Care: None marital status: Current Living Situation: Spouse current occupational status: 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 Other Information That Helps Us Care for You: No Feels Safe at Home: Yes Safety Concerns: Feels Safe At This Time Physical Activity Frequency: Other Physical Activity Frequency Comment: limited due to physical condition Assistive Devices: CPAP, Slide Board and Wheelchair Review of Systems Constitutional: + fatigue; no fever, no chills and no sweats Eyes: no blind spots and no discharge Ear, Nose, Mouth, Throat: no hearing loss and no nasal congestion Respiratory: + dyspnea; no cough, no chest congestion and no pain on inspiration Cardiovascular: no chest pain, no dyspnea on exertion and no edema Gastrointestinal: no abdominal pain, no nausea, no vomiting, no constipation, no diarrhea/loose stools and no blood in stools Musculoskeletal: + body aches (glute pain); no joint pain and no myalgia Neurologic: no tingling, no numbness and no headache(s) Endocrine: no fatigue Physical Exam Physical Exam: Constitutional: obese, in no apparent distress, laying somewhat comfortably in bed. Eyes: EOMI, pupils equal and reactive bilaterally, no scleral icterus Cardiac: RRR, no murmurs, gallops or rubs. Normal S1, S2 Pulm: CTA BL, diminished breath sounds at bases bilaterally, otherwise no wheezes, rhonchi Abd: soft, nontender, distended, normal bowel sounds, no rebound or guarding Extremities: 2+ peripheral pulses, no edema Neuro: no focal deficits, left arm propped up on abdomen, A&Ox3, able to move and control right side Results & Data Results & Data ([facility]) Vital Signs (Past 12 Hours) Vital Signs Temp Pulse Resp BP Pulse Ox 04/20/21 21:01 97 H 25 H 128/85 96 04/20/21 20:44 161/81 H 99 04/20/21 20:39 98 H 20 04/20/21 20:23 94 04/20/21 20:18 135 H 149/52 H 04/20/21 20:08 120 H 33 H 149/82 H 93 04/20/21 20:04 93 04/20/21 19:54 37.5 C 129 H 17 173/113 H 88 L 04/20/21 19:51 128 H 34 H 173/113 H 92 Laboratory Results Laboratory Results WBC 19.99 K/uL (4.8-10.8) H 04/20/21 20:05 RBC 4.83 M/uL (4.7-6.1) 04/20/21 20:05 Hgb 15.0 g/dL (14.0-18.0) 04/20/21 20:05 Hct 42.7 % (42-52) 04/20/21 20:05 MCV 88.4 fL (80-100) 04/20/21 20:05 MCH 31.1 pg (25-34) 04/20/21 20:05 MCHC 35.1 g/dL (32-36) 04/20/21 20:05 RDW Std Deviation 45.5 fL (36.4-46.3) 04/20/21 20:05 RDW Coeff of Jeyson 14.0 % (11.5-14.5) 04/20/21 20:05 Plt Count 221 K/uL (130-400) 04/20/21 20:05 MPV 10.2 fL (7.4-10.4) 04/20/21 20:05 Immature Gran % (Auto) 0.3 % 04/20/21 20:05 Neut % (Auto) 89.8 % 04/20/21 20:05 Lymph % (Auto) 4.8 % 04/20/21 20:05 Loíza % (Auto) 4.5 % 04/20/21 20:05 Eos % (Auto) 0.5 % 04/20/21 20:05 Baso % (Auto) 0.1 % 04/20/21 20:05 Neut # (Auto) 17.97 K/uL (1.4-6.5) H 04/20/21 20:05 Lymph # (Auto) 0.96 K/uL (1.2-3.4) L 04/20/21 20:05 Loíza # (Auto) 0.90 K/uL (0.11-0.59) H 04/20/21 20:05 Eos # (Auto) 0.10 K/uL (0-0.5) 04/20/21 20:05 Baso # (Auto) 0.01 K/uL (0-0.2) 04/20/21 20:05 Immature Gran # (Auto) 0.05 K/uL (0.00-0.02) H 04/20/21 20:05 PT 10.0 Seconds (9.0-12.0) 04/20/21 20:05 INR 1.0 (0.9-1.1) 04/20/21 20:05 APTT 23.2 Seconds (21.0-31.0) 04/20/21 20:05 PTT Ratio 0.9 04/20/21 20:05 Sodium 139 mmol/L (136-145) 04/20/21 20:05 Potassium 4.1 mmol/L (3.5-5.1) 04/20/21 20:05 Chloride 108 mmol/L (98-107) H 04/20/21 20:05 Carbon Dioxide 23 mmol/L (21-32) 04/20/21 20:05 Anion Gap 9.0 (3-11) 04/20/21 20:05 BUN 14 mg/dl (7-18) 04/20/21 20:05 Creatinine 0.93 mg/dl (0.6-1.4) 04/20/21 20:05 Est Cr Clr Drug Dosing 85.0 ml/min 04/20/21 20:05 Est GFR ( Amer) 90.8 ml/min 04/20/21 20:05 Est GFR (Non-Af Amer) 78.4 ml/min 04/20/21 20:05 BUN/Creatinine Ratio 14.6 (10-20) 04/20/21 20:05 Glucose 160 mg/dl (70-99) H 04/20/21 20:05 Lactate 2.5 mmol/L (0.4-2.0) H* 04/20/21 21:50 Calcium 8.8 mg/dl (8.5-10.1) 04/20/21 20:05 Magnesium 2.2 mg/dl (1.8-2.4) 04/20/21 20:05 Total Bilirubin 0.4 mg/dl (0.2-1) 04/20/21 20:05 AST 23 U/L (15-37) 04/20/21 20:05 ALT 28 U/L (12-78) 04/20/21 20:05 Alkaline Phosphatase 96 U/L (45-117) 04/20/21 20:05 Troponin I 0.058 ng/ml (0-0.045) H* 04/20/21 20:05 Total Protein 7.7 gm/dl (6.4-8.2) 04/20/21 20:05 Albumin 3.2 gm/dl (3.4-5.0) L 04/20/21 20:05 Globulin 4.5 gm/dl (2.5-4.0) H 04/20/21 20:05 Albumin/Globulin Ratio 0.7 (0.9-2) L 04/20/21 20:05 TSH 1.480 uIu/ml (0.300-4.500) 04/20/21 20:05 Nasal Screen MRSA (PCR) Positive (Negative) A 04/21/21 01:00 COVID-19 Eval Order Covid19 at [facility] 04/20/21 20:42 SARS-CoV-2 (PCR) NEGATIVE (Negative) 04/20/21 20:[address] 04/20/21 20:05 CT OF THE HEAD WITHOUT CONTRAST CLINICAL HISTORY: confusion COMPARISON STUDY: Head CT February 11, 2020. TECHNIQUE: Helical axial images of the head were obtained without IV contrast. Automated exposure control was utilized for the study. A dose lowering technique was utilized adhering to the principles of ALARA. FINDINGS: No acute intracranial hemorrhage, midline shift or mass effect is present. The ventricular system is stable. An old infarct within the right basal ganglia is again noted which extends into the right thalamus. White matter hypodensity suggests small vessel disease. The basal cisterns are patent. No extra-axial collections are present. There are no findings to suggest acute dural sinus thrombosis or acute territorial infarct. No significant calvarial abnormalities are present. IMPRESSION: No acute intracranial findings. No change in appearance of the brain. Old right basal ganglia infarct. ACT 112: Negative or not required by law. Electronically signed by: Daniel Kumar M.D. 04/20/2021 8:54 PM Chest X-Ray 04/20/21 20:07 XR chest 1V portable CLINICAL HISTORY: weakness COMPARISON STUDY: Chest radiograph February 11, 2020. FINDINGS: Lung volumes are normal. There is no pneumothorax or pleural effusion. Cardiomegaly is unchanged. There are minimal bibasilar opacities. There is pulmonary vascular congestion without overt pulmonary edema. IMPRESSION: 1. Cardiomegaly. Pulmonary vascular congestion without overt pulmonary edema. 2. Mild bibasilar opacities. Atelectasis is favored although an infectious process could appear similar. ACT 112: Negative or not required by law. Electronically signed by: Daniel Kumar M.D. 04/20/2021 8:32 PM Abdomen/Pelvis CT 04/20/21 20:08 CT OF THE ABDOMEN AND PELVIS WITHOUT CONTRAST CLINICAL HISTORY: Nausea and vomiting. COMPARISON STUDY: CT of the abdomen and pelvis February 11, 2020. TECHNIQUE: Axial images of the abdomen and pelvis were obtained without IV contrast. Images were reviewed in the axial, sagittal, and coronal planes. Automated exposure control was utilized for the study. A dose lowering technique was utilized adhering to the principles of ALARA. FINDINGS: Visualized portions of the lower chest demonstrate cardiomegaly. In addition, there are moderate alveolar opacities within the lower lungs. Relatively similar findings were shown on prior CT of February 11, 2020. This exam is compromised by body wall contacting the gantry with resultant artifact. Right renal lesions were shown to reflect cysts on prior contrast enhanced CT. No evidence for a bowel obstruction. No pneumatosis, free air or portal venous gas is present. Unenhanced images of the liver are unremarkable with exception of a suspected lateral segment cyst. The spleen, adrenal glands and pancreas are unremarkable. There is no hydronephrosis. There is no evidence for a bowel obstruction. No lymphadenopathy is present. No free fluid is present. No acute fracture or suspicious lesion is identified within the visualized skeletal structures. There are no urinary calculi. IMPRESSION: 1. Moderate bilateral lower lung airspace opacities which favor an infectious process. 2. No acute process within the abdomen or pelvis on unenhanced exam. 3. No bowel obstruction. 4. Exam compromised by body wall contacting the gantry with resultant artifact. ACT 112: Negative or not required by law. Electronically signed by: Daniel Kumar M.D. 04/20/2021 8:45 PM Supervising Physician Co-Signing Physician Notes Patient seen and examined, chart reviewed, case discussed with Dr. Tang and I agree with her assessment and plan as above. Resident Activity Tracking Resident Involvement: Resident Care Provided Care Provided: Adult Hospital Medicine (1) Coronary artery disease Associated angina: without angina Coronary Disease-Associated Artery/Lesion type: viejas artery [place] vs. transplanted heart: viejas heart Qualified Code(s): I25.10 - Atherosclerotic heart disease of viejas coronary artery without angina pectoris (2) Depression Depression Type: other depression Qualified Code(s): F32.89 - Other specified depressive episodes (3) Hyperlipidemia Hyperlipidemia type: mixed hyperlipidemia Qualified Code(s): E78.2 - Mixed hyperlipidemia (4) Pneumonia Laterality: bilateral Lung location: lower lobe of lung Pneumonia type: due to unspecified organism Qualified Code(s): J18.9 - Pneumonia, unspecified organism (5) Vomiting Nausea presence: unspecified Vomiting Intractability: non-intractable Vomiting type: unspecified Qualified Code(s): R11.10 - Vomiting, unspecified
[2021-04-20] MEDS ORDERED: SODIUM CHLORIDE 0.9% 1000ML 1,000 ML IV STA (22:40)
[2021-04-21] MEDS ORDERED: traMADol HCL 50 MG TABLET PO PRN (00:39)
[2021-04-21] MEDS ORDERED: MELATONIN 3 MG TAB PO PRN (00:39)
[2021-04-21] MEDS ORDERED: ONDANSETRON INJ 2 MG/ML 2 ML VIAL IV PRN (00:39)
[2021-04-21] MEDS ORDERED: DICLOFENAC SOD 1% GEL 100 GM TUBE EXT PRN (00:39)
[2021-04-21] MEDS ORDERED: CANNABIDIOL topical PRN (00:39)
[2021-04-21] MEDS ORDERED: MAGNESIUM HYDROXIDE SUSP 30 ML UDC PO PRN (00:39)
[2021-04-21] MEDS ORDERED: ACETAMINOPHEN 325 MG TAB PO PRN (00:39)
[2021-04-21] MEDS ORDERED: NITROGLYCERIN SL 0.4 MG/TAB TAB SL PRN (00:39)
[2021-04-21] MEDS ORDERED: ALBUT/IPRATROP 3MG/0.5MG NEB 3 ML VIAL NEB PRN (00:39)
[2021-04-21] MEDS: cefTRIAXone SODIUM 2,000 MG in DEXTROSE 5% 50 ML IV SCH (01:43)
[2021-04-21] MEDS: GABAPENTIN 300 MG CAP PO SCH ×3 (01:44→21:03)
[2021-04-21] MEDS: SODIUM CHLORIDE 0.9% 1000ML 1,000 ML IV SCH ×2 (05:31→14:59)
--- NOTE | 2021-04-21 06:51 | Billing Data ---
Date of Service April 21, 2021 Coding Level of Care Code 07307 Initial Inpt Care Lvl 3
[2021-04-21] MEDS ORDERED: AZITHROMYCIN 500 MG in DEXTROSE 5% 250 ML IV ONE (07:30)
[2021-04-21 08:27] LABS: Basophils # (auto) 0.02 K/uL (0-0.2); Basophils % (auto) 0.1 %; Eosinophils # (auto) 0.07 K/uL (0-0.5); Eosinophils % (auto) 0.4 %; Hematocrit (blood only) 38.2 % (42-52); Immature Granulocytes # (auto) 0.03 K/uL (0.00-0.02); Immature Granulocytes % (auto) 0.2 %; Lymphocytes # (auto) 2.47 K/uL (1.2-3.4); Lymphocytes % (auto) 15.6 %; Mean Corpuscular Hemoglobin 30.2 pg (25-34); Mean Corpuscular Volume 88.6 fL (80-100); Mean Platelet Volume 10.1 fL (7.4-10.4); Monocytes # (auto) 0.93 K/uL (0.11-0.59); Monocytes % (auto) 5.9 %; Neutrophils # (auto) 12.31 K/uL (1.4-6.5); Neutrophils % (auto) 77.8 %; Platelet Count 199 K/uL (130-400); RDW Coefficient of Variation 14.4 % (11.5-14.5); RDW Standard Deviation 46.7 fL (36.4-46.3); Red Blood Count 4.31 M/uL (4.7-6.1); White Blood Count 15.83 K/uL (4.8-10.8)
[2021-04-21] MEDS: SERTRALINE HCL 50 MG TABLET PO SCH (08:40)
[2021-04-21] MEDS: HEPARIN SOD 5,000 UNIT/0.5 ML VIAL SQ SCH ×2 (08:40→21:03)
[2021-04-21] MEDS: lisinopril 20 MG TAB PO SCH (08:40)
[2021-04-21] MEDS: FINASTERIDE 5 MG TAB PO SCH (08:40)
[2021-04-21] MEDS: PANTOprazole 40 MG TAB PO SCH (08:41)
[2021-04-21] MEDS: ASPIRIN 81 MG ECTAB PO SCH (08:41)
--- NOTE | 2021-04-21 09:01 | Electrocardiogram Report ---
Test Reason : Blood Pressure : / mmHG Vent. Rate : 073 BPM Atrial Rate : 073 BPM P-R Int : 302 ms QRS Dur : 134 ms QT Int : 456 ms P-R-T Axes : 032 -60 048 degrees QTc Int : 502 ms Sinus rhythm with 1st degree A-V block Left axis deviation Non-specific intra-ventricular conduction block Possible Lateral infarct , age undetermined Abnormal ECG When compared with ECG of 20-APR-2021 19:45, (unconfirmed) Vent. rate has decreased BY 59 BPM Confirmed by Rios Celeste ([id number]) on 04/21/2021 9:01:13 AM Referred By: REFERRED SELF Confirmed By:Rios Celeste
[2021-04-21 09:07] LABS: Albumin Level 2.7 gm/dl (3.4-5.0); BUN Creatinine Ratio 17.7 (10-20); Calcium 8.5 mg/dl (8.5-10.1); Est GFR (African American) 101.8 ml/min; Est GFR (Non-African American) 87.9 ml/min; Potassium 4.2 mmol/L (3.5-5.1)
[2021-04-21 09:10] LABS: Albumin Globulin Ratio 0.7 (0.9-2); Bilirubin,Total 0.5 mg/dl (0.2-1); Total Protein 6.7 gm/dl (6.4-8.2)
[2021-04-21 10:57] LABS: Base Excess VBG 1.2 mEq/L; HCO3 VBG 28 mmol/L; PCO2 VBG 53 mmHg (38-50); PO2 VBG 29 mmHg; pH VBG 7.34 (7.36-7.41)
[2021-04-21 11:00] LABS: Oxygen Saturation VBG < 60.0 %
[2021-04-21 11:04] LABS: D Dimer 930 ug/L FEU (0-500)
--- NOTE | 2021-04-21 12:49 | Hospitalist Progress Note ---
Date of Service April 21, 2021 Assessment & Plan (1) Sepsis: Plan: 76-year-old male with CELY, hypertension, hyperlipidemia, coronary artery disease status post stent, CVA causing left hemiparesis, BPH admitted to the hospital for management of pneumonia with hypoxia. Acute respiratory failure - Oxygenating well on cpap - check ABG for concern of hypercapnia. bicarb normal though. Sepsis: - elevated lactate, elevated WBC, tachypneic, and tachycardic on admission - Source - pneumonia - received 3L NSS in ED with 1 dose of cefepime - WBC elevated to almost 20 K however patient is not tachycardic, tachypneic or febrile at this time.- WBC downtrended in AM - noted improvement in tachycardia/tachypnea - blood cultures pending - MRSA nares positive, MRSA pneumonia unlikely given improvement in - Continue ceftriaxone and azithromycin Dyspnea: - uncertain etiology of dyspnea on presentation; potential etiologies include pulmonary edema, pneumonia, congestive heart failure, or pulmonary embolism - CXR demonstrating concerns for bibasilar atelectasis vs pneumonia - CT abdomen pelvis showing bibasilar infiltrate likely infectious process; with no acute intra-abdominal process - See above for possible pneumonia as etiology. - Troponin 0.058 with downtrend to 0.050 - BNP 1487 - D-dimer 930 - no active chest pain, or increased oxygen requirement - EKG with widened QTc, and widened QRS complex; no ST segment changes - hold QT prolonging medications - continue to monitor on telemetry - Echo pending (last in 2017) Extensive Coronary Artery disease history: - no active chest pain at this time - last cardiac catheterization in 2017 with 90 percent proximal left circumflex stenosis, 50 percent distal RCA stenosis, [id number] atherosclerotic disease of LAD - troponin downtrended on recheck - contiune to monitor on telemetry - Echo pending - Continue daily ASA, statin A. fib status post ablation: - Rate controlled with metoprolol, now sinus rhythm Chronic conditions BPH: Continue finasteride Hypertension: continue lisinopril, metoprolol. CPAP nightly Hemiparesis/body aches: Continue home gabapentin Depression: Continue sertraline Gluteal pain: Pressure ulcer checks and precautions, continue home tramadol 50 mg p.o. every 6 as needed (patient usually only takes twice a day) DVT ppx: heparin SQ Diet: Carb Consistent Code Status: full code (2) Dyspnea: (3) Coronary artery disease: (4) Obstructive sleep apnea: Admission and Anticipated Discharge Date Admission Date: April 20, 2021 Supervising Physician Co-Signing Physician Notes Resident Physician Supervision Note: I independently interviewed and examined the patient and verified the summers history and physical, reviewed labs and image studies and agree with resident Dr. Tran findings and care plan. consider possible concern of aspiration as cause of presentation. follow Review of Systems Review of Systems: All systems reviewed & are unremarkable except as noted in Subjective Physical Exam Constitutional: WD/WN, vitals as above Eyes: PERRL, conjunctivae normal, anicteric sclerae Cardiovascular: Rate/Rhythm: regular rate and regular rhythm Heart Sounds: no gallop, no murmur and no cardiac rub Vessels: normal peripheral pulses; no JVD Extremities: no edema Gastrointestinal (Abdomen): Inspection/Auscultation: normal bowel sounds; abdomen not distended Percussion/Palpation: abdomen soft; abdomen nontender and no guarding Skin: no rashes, warm and dry Psychiatric: Orientation: alert and oriented x 3 Results & Data Results & Data ([facility]) Vital Signs (Past 12 Hours) Vital Signs Temp Pulse Pulse Resp BP Pulse Ox 04/21/21 08:11 36.5 C 73 16 123/52 L 96 04/21/21 02:48 77 20 94 04/21/21 01:12 77 22 93 Laboratory Results 04/21/21 04/21/21 04/21/21 Range/Units 10:42 10:42 10:42 WBC (4.8-10.8) K/uL RBC (4.7-6.1) M/uL Hgb (14.0-18.0) g/dL Hct (42-52) % MCV (80-100) fL MCH (25-34) pg MCHC (32-36) g/dL RDW Std Deviation (36.4-46.3) fL RDW Coeff of [place] (11.5-14.5) % Plt Count (130-400) K/uL MPV (7.4-10.4) fL Immature Gran % (Auto) % Neut % (Auto) % Lymph % (Auto) % [place] % (Auto) % Eos % (Auto) % Baso % (Auto) % Neut # (Auto) (1.4-6.5) K/uL Lymph # (Auto) (1.2-3.4) K/uL [place] # (Auto) (0.11-0.59) K/uL Eos # (Auto) (0-0.5) K/uL Baso # (Auto) (0-0.2) K/uL Immature Gran # (Auto) (0.00-0.02) K/uL PT (9.0-12.0) Seconds INR (0.9-1.1) APTT (21.0-31.0) Seconds PTT Ratio D-Dimer (0-500) ug/L FEU VBG pH 7.34 L (7.36-7.41) VBG pCO2 53 H (38-50) mmHg VBG pO2 29 mmHg VBG HCO3 28 mmol/L VBG O2 Saturation < 60.0 % VBG Base Excess 1.2 mEq/L Barometric Pressure 736.2 mm/Hg Sodium (136-145) mmol/L Potassium (3.5-5.1) mmol/L Chloride (98-107) mmol/L Carbon Dioxide (21-32) mmol/L Anion Gap (3-11) BUN (7-18) mg/dl Creatinine (0.6-1.4) mg/dl Est Cr Clr Drug Dosing ml/min Est GFR ( Amer) ml/min Est GFR (Non-Af Amer) ml/min BUN/Creatinine Ratio (10-20) Glucose (70-99) mg/dl POC Glucose (70-99) mg/dl Lactate (0.4-2.0) mmol/L Calcium (8.5-10.1) mg/dl Magnesium (1.8-2.4) mg/dl Total Bilirubin (0.2-1) mg/dl AST (15-37) U/L ALT (12-78) U/L Alkaline Phosphatase (45-117) U/L Troponin I (0-0.045) ng/ml NT-Pro-B Natriuret Pep 1487 (0-1800) pg/ml Total Protein (6.4-8.2) gm/dl Albumin (3.4-5.0) gm/dl Globulin (2.5-4.0) gm/dl Albumin/Globulin Ratio (0.9-2) Procalcitonin 4.02 H (0-0.5) ng/ml TSH (0.300-4.500) uIu/ml Nasal Screen MRSA (PCR) (Negative) COVID-19 Eval Order SARS-CoV-2 (PCR) (Negative) 04/21/21 04/21/21 04/21/21 Range/Units 10:42 08:35 07:56 WBC (4.8-10.8) K/uL RBC (4.7-6.1) M/uL Hgb (14.0-18.0) g/dL Hct (42-52) % MCV (80-100) fL MCH (25-34) pg MCHC (32-36) g/dL RDW Std Deviation (36.4-46.3) fL RDW Coeff of [place] (11.5-14.5) % Plt Count (130-400) K/uL MPV (7.4-10.4) fL Immature Gran % (Auto) % Neut % (Auto) % Lymph % (Auto) % [place] % (Auto) % Eos % (Auto) % Baso % (Auto) % Neut # (Auto) (1.4-6.5) K/uL Lymph # (Auto) (1.2-3.4) K/uL [place] # (Auto) (0.11-0.59) K/uL Eos # (Auto) (0-0.5) K/uL Baso # (Auto) (0-0.2) K/uL Immature Gran # (Auto) (0.00-0.02) K/uL PT (9.0-12.0) Seconds INR (0.9-1.1) APTT (21.0-31.0) Seconds PTT Ratio D-Dimer 930 H* (0-500) ug/L FEU VBG pH (7.36-7.41) VBG pCO2 (38-50) mmHg VBG pO2 mmHg VBG HCO3 mmol/L VBG O2 Saturation % VBG Base Excess mEq/L Barometric Pressure mm/Hg Sodium 142 (136-145) mmol/L Potassium 4.2 (3.5-5.1) mmol/L Chloride 110 H (98-107) mmol/L Carbon Dioxide 25 (21-32) mmol/L Anion Gap 7.0 (3-11) BUN 13 (7-18) mg/dl Creatinine 0.75 (0.6-1.4) mg/dl Est Cr Clr Drug Dosing 110.0 ml/min Est GFR ( Amer) 101.8 ml/min Est GFR (Non-Af Amer) 87.9 ml/min BUN/Creatinine Ratio 17.7 (10-20) Glucose 115 H (70-99) mg/dl POC Glucose 153 H (70-99) mg/dl Lactate (0.4-2.0) mmol/L Calcium 8.5 (8.5-10.1) mg/dl Magnesium (1.8-2.4) mg/dl Total Bilirubin 0.5 (0.2-1) mg/dl AST 15 (15-37) U/L ALT 23 (12-78) U/L Alkaline Phosphatase 72 (45-117) U/L Troponin I (0-0.045) ng/ml NT-Pro-B Natriuret Pep (0-1800) pg/ml Total Protein 6.7 (6.4-8.2) gm/dl Albumin 2.7 L (3.4-5.0) gm/dl Globulin 4.0 (2.5-4.0) gm/dl Albumin/Globulin Ratio 0.7 L (0.9-2) Procalcitonin (0-0.5) ng/ml TSH (0.300-4.500) uIu/ml Nasal Screen MRSA (PCR) (Negative) COVID-19 Eval Order SARS-CoV-2 (PCR) (Negative) 04/21/21 04/21/21 04/20/21 Range/Units 07:56 01:00 21:50 WBC 15.83 H (4.8-10.8) K/uL RBC 4.31 L (4.7-6.1) M/uL Hgb 13.0 L (14.0-18.0) g/dL Hct 38.2 L (42-52) % MCV 88.6 (80-100) fL MCH 30.2 (25-34) pg MCHC 34.0 (32-36) g/dL RDW Std Deviation 46.7 H (36.4-46.3) fL RDW Coeff of Jeyson 14.4 (11.5-14.5) % Plt Count 199 (130-400) K/uL MPV 10.1 (7.4-10.4) fL Immature Gran % (Auto) 0.2 % Neut % (Auto) 77.8 % Lymph % (Auto) 15.6 % [place] % (Auto) 5.9 % Eos % (Auto) 0.4 % Baso % (Auto) 0.1 % Neut # (Auto) 12.31 H (1.4-6.5) K/uL Lymph # (Auto) 2.47 (1.2-3.4) K/uL [place] # (Auto) 0.93 H (0.11-0.59) K/uL Eos # (Auto) 0.07 (0-0.5) K/uL Baso # (Auto) 0.02 (0-0.2) K/uL Immature Gran # (Auto) 0.03 H (0.00-0.02) K/uL PT (9.0-12.0) Seconds INR (0.9-1.1) APTT (21.0-31.0) Seconds PTT Ratio D-Dimer (0-500) ug/L FEU VBG pH (7.36-7.41) VBG pCO2 (38-50) mmHg VBG pO2 mmHg VBG HCO3 mmol/L VBG O2 Saturation % VBG Base Excess mEq/L Barometric Pressure mm/Hg Sodium (136-145) mmol/L Potassium (3.5-5.1) mmol/L Chloride (98-107) mmol/L Carbon Dioxide (21-32) mmol/L Anion Gap (3-11) BUN (7-18) mg/dl Creatinine (0.6-1.4) mg/dl Est Cr Clr Drug Dosing ml/min Est GFR ( Amer) ml/min Est GFR (Non-Af Amer) ml/min BUN/Creatinine Ratio (10-20) Glucose (70-99) mg/dl POC Glucose (70-99) mg/dl Lactate 2.5 H* (0.4-2.0) mmol/L Calcium (8.5-10.1) mg/dl Magnesium (1.8-2.4) mg/dl Total Bilirubin (0.2-1) mg/dl AST (15-37) U/L ALT (12-78) U/L Alkaline Phosphatase (45-117) U/L Troponin I (0-0.045) ng/ml NT-Pro-B Natriuret Pep (0-1800) pg/ml Total Protein (6.4-8.2) gm/dl Albumin (3.4-5.0) gm/dl Globulin (2.5-4.0) gm/dl Albumin/Globulin Ratio (0.9-2) Procalcitonin (0-0.5) ng/ml TSH (0.300-4.500) uIu/ml Nasal Screen MRSA (PCR) Positive A (Negative) COVID-19 Eval Order SARS-CoV-2 (PCR) (Negative) 04/20/21 04/20/21 04/20/21 Range/Units 20:42 20:42 20:05 WBC 19.99 H (4.8-10.8) K/uL RBC 4.83 (4.7-6.1) M/uL Hgb 15.0 (14.0-18.0) g/dL Hct 42.7 (42-52) % MCV 88.4 (80-100) fL MCH 31.1 (25-34) pg MCHC 35.1 (32-36) g/dL RDW Std Deviation 45.5 (36.4-46.3) fL RDW Coeff of Jeyson 14.0 (11.5-14.5) % Plt Count 221 (130-400) K/uL MPV 10.2 (7.4-10.4) fL Immature Gran % (Auto) 0.3 % Neut % (Auto) 89.8 % Lymph % (Auto) 4.8 % [place] % (Auto) 4.5 % Eos % (Auto) 0.5 % Baso % (Auto) 0.1 % Neut # (Auto) 17.97 H (1.4-6.5) K/uL Lymph # (Auto) 0.96 L (1.2-3.4) K/uL [place] # (Auto) 0.90 H (0.11-0.59) K/uL Eos # (Auto) 0.10 (0-0.5) K/uL Baso # (Auto) 0.01 (0-0.2) K/uL Immature Gran # (Auto) 0.05 H (0.00-0.02) K/uL PT (9.0-12.0) Seconds INR (0.9-1.1) APTT (21.0-31.0) Seconds PTT Ratio D-Dimer (0-500) ug/L FEU VBG pH (7.36-7.41) VBG pCO2 (38-50) mmHg VBG pO2 mmHg VBG HCO3 mmol/L VBG O2 Saturation % VBG Base Excess mEq/L Barometric Pressure mm/Hg Sodium (136-145) mmol/L Potassium (3.5-5.1) mmol/L Chloride (98-107) mmol/L Carbon Dioxide (21-32) mmol/L Anion Gap (3-11) BUN (7-18) mg/dl Creatinine (0.6-1.4) mg/dl Est Cr Clr Drug Dosing ml/min Est GFR ( Amer) ml/min Est GFR (Non-Af Amer) ml/min BUN/Creatinine Ratio (10-20) Glucose (70-99) mg/dl POC Glucose (70-99) mg/dl Lactate (0.4-2.0) mmol/L Calcium (8.5-10.1) mg/dl Magnesium (1.8-2.4) mg/dl Total Bilirubin (0.2-1) mg/dl AST (15-37) U/L ALT (12-78) U/L Alkaline Phosphatase (45-117) U/L Troponin I (0-0.045) ng/ml NT-Pro-B Natriuret Pep (0-1800) pg/ml Total Protein (6.4-8.2) gm/dl Albumin (3.4-5.0) gm/dl Globulin (2.5-4.0) gm/dl Albumin/Globulin Ratio (0.9-2) Procalcitonin (0-0.5) ng/ml TSH (0.300-4.500) uIu/ml Nasal Screen MRSA (PCR) (Negative) COVID-19 Eval Order Covid19 at [facility] SARS-CoV-2 (PCR) NEGATIVE (Negative) 04/20/21 04/20/21 04/20/21 Range/Units 20:05 20:05 20:05 WBC (4.8-10.8) K/uL RBC (4.7-6.1) M/uL Hgb (14.0-18.0) g/dL Hct (42-52) % MCV (80-100) fL MCH (25-34) pg MCHC (32-36) g/dL RDW Std Deviation (36.4-46.3) fL RDW Coeff of Jeyson (11.5-14.5) % Plt Count (130-400) K/uL MPV (7.4-10.4) fL Immature Gran % (Auto) % Neut % (Auto) % Lymph % (Auto) % [place] % (Auto) % Eos % (Auto) % Baso % (Auto) % Neut # (Auto) (1.4-6.5) K/uL Lymph # (Auto) (1.2-3.4) K/uL [place] # (Auto) (0.11-0.59) K/uL Eos # (Auto) (0-0.5) K/uL Baso # (Auto) (0-0.2) K/uL Immature Gran # (Auto) (0.00-0.02) K/uL PT 10.0 (9.0-12.0) Seconds INR 1.0 (0.9-1.1) APTT 23.2 (21.0-31.0) Seconds PTT Ratio 0.9 D-Dimer (0-500) ug/L FEU VBG pH (7.36-7.41) VBG pCO2 (38-50) mmHg VBG pO2 mmHg VBG HCO3 mmol/L VBG O2 Saturation % VBG Base Excess mEq/L Barometric Pressure mm/Hg Sodium 139 (136-145) mmol/L Potassium 4.1 (3.5-5.1) mmol/L Chloride 108 H (98-107) mmol/L Carbon Dioxide 23 (21-32) mmol/L Anion Gap 9.0 (3-11) BUN 14 (7-18) mg/dl Creatinine 0.93 (0.6-1.4) mg/dl Est Cr Clr Drug Dosing 85.0 ml/min Est GFR ( Amer) 90.8 ml/min Est GFR (Non-Af Amer) 78.4 ml/min BUN/Creatinine Ratio 14.6 (10-20) Glucose 160 H (70-99) mg/dl POC Glucose (70-99) mg/dl Lactate 2.7 H* (0.4-2.0) mmol/L Calcium 8.8 (8.5-10.1) mg/dl Magnesium 2.2 (1.8-2.4) mg/dl Total Bilirubin 0.4 (0.2-1) mg/dl AST 23 (15-37) U/L ALT 28 (12-78) U/L Alkaline Phosphatase 96 (45-117) U/L Troponin I 0.058 H* (0-0.045) ng/ml NT-Pro-B Natriuret Pep (0-1800) pg/ml Total Protein 7.7 (6.4-8.2) gm/dl Albumin 3.2 L (3.4-5.0) gm/dl Globulin 4.5 H (2.5-4.0) gm/dl Albumin/Globulin Ratio 0.7 L (0.9-2) Procalcitonin (0-0.5) ng/ml TSH 1.480 (0.300-4.500) uIu/ml Nasal Screen MRSA (PCR) (Negative) COVID-19 Eval Order SARS-CoV-2 (PCR) (Negative) Medications Administered Current Inpatient Medications Acetaminophen (Acetaminophen 325 Mg Tab) 650 mg PO Q4H PRN PRN Reason: Pain or Fever Stop: 05/21/21 00:38 Albuterol (Albut/Ipratrop 3mg/0.5mg Neb 3 Ml Vial) 3 ml NEB QIDR PRN PRN Reason: Shortness Of Breath Stop: 05/21/21 00:38 Aspirin (Aspirin 81 Mg Ectab) 81 mg PO DAILY [facility] Stop: 05/21/21 08:59 Last Admin: 04/21/21 08:41 Dose: 81 mg Documented by: Diclofenac Sodium (Diclofenac Sod 1% Gel 100 Gm Tube) 2 gm EXT QID PRN PRN Reason: Pain Stop: 05/21/21 00:38 Finasteride (Finasteride 5 Mg Tab) 5 mg PO QAM [facility] Stop: 05/21/21 08:59 Last Admin: 04/21/21 08:40 Dose: 5 mg Documented by: Gabapentin (Gabapentin 300 Mg Cap) 600 mg PO BID [facility] Stop: 05/21/21 00:38 Last Admin: 04/21/21 08:42 Dose: 600 mg Documented by: Heparin Sodium (Porcine) (Heparin Sod 5,000 Unit/0.5 Ml Vial) 5,000 units SQ Q12 [facility] Stop: 05/21/21 08:59 Last Admin: 04/21/21 08:40 Dose: 5,000 units Documented by: Ceftriaxone Sodium 2,000 mg/ (Dextrose) 70 mls @ 100 mls/hr IV Q24H [facility]; Protocol Stop: 04/28/21 01:59 Last Infusion: 04/21/21 02:50 Dose: Infused Documented by: Sodium Chloride (Nss 1000ml) 1,000 mls @ 170 mls/hr IV .[id number] [facility] Stop: 04/21/21 16:30 Last Admin: 04/21/21 05:31 Dose: 170 mls/hr Documented by: Azithromycin 250 mg/ Dextrose 252.5 mls @ 125 mls/hr IV DAILY [facility] Stop: 04/28/21 08:59 Lisinopril (Lisinopril 20 Mg Tab) 20 mg PO DAILY [facility] Stop: 05/21/21 08:59 Last Admin: 04/21/21 08:40 Dose: 20 mg Documented by: Magnesium Hydroxide (Magnesium Hydroxide Susp 30 Ml Udc) 30 ml PO Q12H PRN PRN Reason: Constipation Stop: 05/21/21 00:38 Melatonin (Melatonin 3 Mg Tab) 3 mg PO HS PRN PRN Reason: Sleep Stop: 05/21/21 00:38 Metoprolol Tartrate (Metoprolol Tartrate 50 Mg Tab) 50 mg PO QPM [facility] Stop: 05/21/21 20:59 Nitroglycerin (Nitroglycerin Sl 0.4 Mg/Tab Tab) 0.4 mg SL UD PRN PRN Reason: Chest Pain Stop: 05/21/21 00:38 Pantoprazole Sodium (Pantoprazole 40 Mg Tab) 40 mg PO QAM [facility] Stop: 05/21/21 08:59 Last Admin: 04/21/21 08:41 Dose: 40 mg Documented by: Pravastatin Sodium (Pravastatin Sod 40 Mg Tab) 40 mg PO HS [facility] Stop: 05/21/21 20:59 Sertraline HCl (Sertraline Hcl 50 Mg Tablet) 25 mg PO DAILY [facility] Stop: 05/21/21 08:59 Last Admin: 04/21/21 08:40 Dose: 25 mg Documented by: Tramadol HCl (Tramadol Hcl 50 Mg Tablet) 50 mg PO Q6H PRN PRN Reason: Pain Stop: 05/21/21 00:38 Resident Activity Tracking Resident Involvement: Resident Care Provided Care Provided: Adult Hospital Medicine (1) Coronary artery disease Associated angina: without angina Coronary Disease-Associated Artery/Lesion type: [place] artery [place] vs. transplanted heart: [place] heart Qualified Code(s): I25.10 - Atherosclerotic heart disease of [place] coronary artery without angina pectoris
[2021-04-21] MEDS ORDERED: PRAVASTATIN SOD 40 MG TAB PO SCH (21:00)
[2021-04-21] MEDS ORDERED: METOPROLOL TARTRATE 50 MG TAB PO SCH (21:00)
[2021-04-22] MEDS: cefTRIAXone SODIUM 2,000 MG in DEXTROSE 5% 50 ML IV SCH (03:19)
[2021-04-22 07:13] LABS: Basophils # (auto) 0.02 K/uL (0-0.2); Basophils % (auto) 0.2 %; Eosinophils % (auto) 1.2 %; Hematocrit (blood only) 40.2 % (42-52); Hemoglobin 13.8 g/dL (14.0-18.0); Immature Granulocytes # (auto) 0.05 K/uL (0.00-0.02); Immature Granulocytes % (auto) 0.6 %; Lymphocytes # (auto) 1.68 K/uL (1.2-3.4); Mean Corpuscular Hemoglobin 30.7 pg (25-34); Mean Corpuscular Hgb Conc 34.3 g/dL (32-36); Mean Corpuscular Volume 89.3 fL (80-100); Mean Platelet Volume 10.1 fL (7.4-10.4); Monocytes # (auto) 0.55 K/uL (0.11-0.59); Monocytes % (auto) 6.5 %; Neutrophils % (auto) 71.5 %; Platelet Count 204 K/uL (130-400); RDW Coefficient of Variation 14.3 % (11.5-14.5)
[2021-04-22 07:35] LABS: BUN Creatinine Ratio 14.9 (10-20); Creatinine Clr Calc Pharmacy 110.3 ml/min; Est GFR (African American) 101.8 ml/min; Est GFR (Non-African American) 87.9 ml/min; Potassium 3.9 mmol/L (3.5-5.1)
[2021-04-22] MEDS: ASPIRIN 81 MG ECTAB PO SCH (08:19)
[2021-04-22] MEDS: GABAPENTIN 300 MG CAP PO SCH (08:19)
[2021-04-22] MEDS: HEPARIN SOD 5,000 UNIT/0.5 ML VIAL SQ SCH (08:19)
[2021-04-22] MEDS: SERTRALINE HCL 50 MG TABLET PO SCH (08:19)
[2021-04-22] MEDS: PANTOprazole 40 MG TAB PO SCH (08:19)
[2021-04-22] MEDS: FINASTERIDE 5 MG TAB PO SCH (08:19)
[2021-04-22] MEDS: lisinopril 20 MG TAB PO SCH (08:20)
[2021-04-22] MEDS ORDERED: AZITHROMYCIN 250 MG in DEXTROSE 5% 250 ML IV SCH (09:00)
[2021-04-22] MEDS ORDERED: AMOXICILLIN/CLAVULANATE 875 MG TAB PO SCH ×2 (10:30→17:00)
[2021-04-22 11:16] VITALS: BP 170/111; PULSE 81; TEMP 98.4; O2SAT 94
--- NOTE | 2021-04-22 12:24 | Discharge Summary ---
Date of Service April 22, 2021 Principal Diagnosis Pneumonia Discharge Exam Constitutional WD/WN, vitals as above Eyes PERRL, conjunctivae normal, anicteric sclerae Cardiovascular Rate/Rhythm: regular rate and regular rhythm Heart Sounds: no gallop, no murmur and no cardiac rub Vessels: normal peripheral pulses; no JVD Extremities: no edema Gastrointestinal (Abdomen) Inspection/Auscultation: normal bowel sounds; abdomen not distended Percussion/Palpation: abdomen soft; abdomen nontender and no guarding Skin no rashes, warm and dry Psychiatric Orientation: alert and oriented x 3 Discharge Data Allergies Allergy/AdvReac Type Severity Reaction Status Date / Time [id number] Reductase AdvReac Unknown "WEAK" Verified 04/14/21 13:13 Inhibitor Consultations 04/20/21 21:07 ED Decision to Admit Stat Ordered Studies 04/20/21 20:05 CT head/brain wo con Stat 04/20/21 20:08 CT abd pelvis wo con Stat Hospital Course (1) Sepsis: 76-year-old male with CELY, hypertension, hyperlipidemia, coronary artery disease status post stent, CVA causing left hemiparesis, BPH admitted to the hospital for management of pneumonia with hypoxia. Acute respiratory failure: -Likely secondary to pneumonia questionable aspiration - Able to be weaned off of oxygen during the day - Continues to utilize CPAP at night for his obstructive sleep apnea Metabolic encephalopathy, treated and resolved - likely sec to ?hypoxia - EKG with bifascicular block. concern of syncopal event from dysrhythmia. None noted on Tele. - To consider arranging event monitor as outpatient. Sepsis: - elevated lactate, elevated WBC, tachypneic, and tachycardic on admission - Source - pneumonia - received 3L NSS in ED with 1 dose of cefepime - WBC elevated to almost 20 K however patient is not tachycardic, tachypneic or febrile at this time.- WBC downtrended in AM - noted improvement in tachycardia/tachypnea following increase in oxygen supplementation - blood cultures negative - MRSA nares positive - Continue Augmentin 875 mg twice daily Dyspnea: - CXR demonstrating concerns for bibasilar atelectasis vs pneumonia - CT abdomen pelvis showing bibasilar infiltrate likely infectious process; with no acute intra-abdominal process - Troponin 0.058 with downtrend to 0.050 - BNP 1487; D-dimer 930 - no active chest pain, or increased oxygen requirement - EKG with widened QTc, and widened QRS complex; no ST segment changes - Echo pending on discharge - likely etiology pneumonia. Extensive Coronary Artery disease history: - no active chest pain at this time - last cardiac catheterization in 2016 with 90 percent proximal left circumflex stenosis, 50 percent distal RCA stenosis, [id number] atherosclerotic disease of LAD - troponin downtrended on recheck - contiune to monitor on telemetry - Echo pending on discharge - Continue daily ASA, statin A. fib status post ablation: - Rate controlled with metoprolol, now sinus rhythm BPH: - Continue finasteride Hypertension: - continue lisinopril, metoprolol. CPAP nightly Hemiparesis/body aches: - Continue home gabapentin Depression: - Continue sertraline Gluteal pain: - Pressure ulcer checks and precautions, continue home tramadol 50 mg p.o. every 6 as needed (patient usually only takes twice a day) (2) Dyspnea: (3) Coronary artery disease: (4) Obstructive sleep apnea: Total Time Total Time Spent Total Time Spent (In Minutes): 30 Discharge Plan Discharge Items Patient Disposition: Home - Self-Care Reason For Visit: SOB, AMS Discharge Diagnosis: pneumonia Condition on Discharge: Fair Activity: Per Instructions section Non-emergency contact: Primary Care Provider Call non-emergency contact if: you have any medication questions and your symptoms worsen Follow-up/Referrals: Chester Granados MD [Primary Care Provider] - 04/29/21 11:00 am Diet: Heart Healthy Addtl Attending Provider Instructions: You were seen and admitted for concerns of pneumonia following having an acute episode of confusion and fatigue with concern of a potential aspiration due to the nausea and vomiting you had prior to coming to the hospital. Now you are being discharged with continued antibiotics to treat the pneumonia that you should continue to take twice a day for the next week. Please have your primary care physician arrange an Event monitor for possible heart beat abnormality which may have led to you to be in the hospital. No heart beat abnormality was picked up while you were in the hospital. Pending Studies at Discharge: No Stand-Alone Forms: My [employer], Smoking Cessation Medications and DC Order Prescriptions: New amoxicillin-pot clavulanate [Augmentin] 875-125 mg Tablet 1 tab PO BIDM 6 Days Qty: 12 RF: 0 Continued cholecalciferol (vitamin D3) 50 mcg (2,000 unit) capsule 50 mcg PO DAILY RF: 0 aspirin 81 mg tablet,delayed release (DR/EC) 81 mg PO DAILY RF: 0 cbd cream 1 applic topical DIRECTED PRN (Reason: Pain) RF: 0 diclofenac sodium 1 % gel 2 g topical QID PRN (Reason: Pain) RF: 0 multivitamin Tablet 1 tab PO QAM Qty: 0 RF: 0 finasteride 5 mg Tablet 5 mg PO QAM Qty: 0 RF: 0 calcium carb-D3-mag [id number] ep-hogv-dn-mg tablet 1 tab PO DAILY RF: 0 ascorbic acid (vitamin C) 250 mg tablet 250 mg PO DAILY RF: 0 gabapentin 300 mg capsule 600 mg PO BID RF: 0 Power Wheelchair Device See Rx Instructions .ROUTE .COMPLEX Qty: 1 RF: 0 lisinopril 20 mg tablet 20 mg PO DAILY Qty: 90 RF: 3 omeprazole 20 mg Capsule,Delayed Release(Dr/Ec) 20 mg PO QAM RF: 0 tramadol 50 mg Tablet 50 mg PO Q6H PRN (Reason: Pain) RF: 0 metoprolol tartrate 50 mg tablet 50 mg PO QPM RF: 0 pravastatin 40 mg tablet 40 mg PO HS RF: 0 sertraline 50 mg tablet 25 mg PO DAILY RF: 0 Discharge Orders: Discharge Order (Routine); Ordered 04/22/21 Ordered By: Aubrey Tran Admission Data Admit Date/Time: 04/20/21 21:57 Attending Provider: Eliza Bocanegra Admit Provider: Myriam Tang Primary Care Provider: Chester Granados Other Providers: [facility] ; Cherelle Cook Other Interventions: Discharge Summary Assessment (RN) Last Done: 04/22/21 14:21 Supervising Physician Co-Signing Physician Notes Resident Physician Supervision Note: I independently interviewed and examined the patient and verified the summers history and physical, reviewed labs and image studies and agree with resident Dr. Tran findings and care plan. Resident Activity Tracking Resident Involvement: Resident Care Provided Care Provided: Adult Hospital Medicine
--- NOTE | 2021-04-23 16:00 | Electrocardiogram Report ---
Test Reason : Blood Pressure : / mmHG Vent. Rate : 132 BPM Atrial Rate : 138 BPM P-R Int : 000 ms QRS Dur : 126 ms QT Int : 326 ms P-R-T Axes : 000 -79 055 degrees QTc Int : 483 ms Probable Sinus tachycardia vs SVT Right bundle branch block Left anterior fascicular block Bifascicular block Abnormal ECG When compared with ECG of 11-FEB-2020 21:42, 2nd degree AV block is no longer present Confirmed by Rios Celeste ([id number]) on 04/23/2021 3:59:40 PM Referred By: REFERRED SELF Confirmed By:Rios Celeste
== END 2021-04-22 15:15 | disposition home or self-care (01) | DRG 871 ==
LOC: ED 19:35 → 3N 21:57 → SUATTDRO 21:57 → 3N 23:23 → 2W 04-21 06:31

== ENCOUNTER 2024-08-24 12:18 | Observation (INO) ==
--- NOTE | 2024-08-24 12:40 | Emergency Department Note ---
Impression & Plan Diarrhea, Weakness, Elevated troponin I level ED Provider Note NAME: IWONA WOODARD AGE: 79 SEX: M : 1945 ARRIVES VIA: Ambulance INFORMANT: Patient, ED PROVIDER(S): Donnie Foster DO CHIEF COMPLAINT: Diarrhea HPI: The patient is an 79-year-old male who presented to the emergency department for flulike symptoms. The patient's been experiencing nausea as well as diarrhea and cough over the course the last 24 hours. The patient recently was visiting family for the holiday. It turns out they also have similar complaints. The patient denies having any chest pain. He denies having any lower extremity swelling. He denies having any rectal bleeding. The patient arrived via ambulance. ROS: See above HPI for pertinent positives & negatives. A total of 10 systems reviewed and were otherwise negative. PAST MEDICAL HISTORY: See Below PAST SURGICAL HISTORY: See Below FAMILY HISTORY: See Below SOCIAL HISTORY: See Below HOME MEDICATIONS: See Below ALLERGIES: See Below VITALS: See Below PHYSICAL EXAMINATION: GENERAL: Patient is awake alert in no acute distress patient is resting comfortably and showing no signs of anxiety EYES: The conjunctivae are clear. The pupils are round and reactive. EARS, NOSE, MOUTH AND THROAT: The nose is without any evidence of any deformity. NECK: The neck is nontender and supple. RESPIRATORY: Scattered rhonchi are noted throughout. There is no tachypnea or conversational dyspnea. CARDIOVASCULAR: Regular rate and rhythm noted there no murmurs rubs or gallops normal S1 normal S2. GASTROINTESTINAL: The abdomen is soft. Abdomen is nontender. MUSCULOSKELETAL/EXTREMITIES: There is no evidence of gross deformity full range of motion is noted in the hips and shoulders. SKIN: Is warm and dry. Trace pedal edema was noted bilaterally. NEUROLOGIC: Patient is awake alert and oriented x3 MEDICAL DECISION MAKING: The patient is an 79-year-old male who presented to the emergency department for an evaluation of diarrhea. He was very weak. The patient's age and comorbidities as well as his body habitus I do not think he would do well at home. He would likely suffer significant skin breakdown. He may require further workup as well. After his evaluation I discussed his condition with the on-call [facility] hospitalist. They have agreed to evaluate the patient in the emergency department. Triage Nursing notes reviewed. Prior medical records reviewed Vital Signs: reviewed and remarkable for elevated blood pressure. Differential diagnosis: Reactive airway disease, pneumonia, pneumothorax, COPD, CHF, infections, cardiac ischemia, pulmonary embolism, musculoskeletal, gastrointestinal, as well as other pathologies. ER treatment provided: See below Diagnostics interpreted by me: ECG: EKG was obtained in the emergency department. My interpretation is atrial fibrillation at 85 bpm. A right bundle branch block pattern was noted. PVCs were noted. This was compared to a tracing from July 24, 2022. On the previous tracing first-degree AV block was noted. Today's tracing could represent a longer first-degree AV block but at this time it does appear to be more consistent with atrial fibrillation. Cardiac Monitoring: An order was placed for continuous cardiac monitoring. The monitor shows a rate of 58 bpm with episodes of sinus bradycardia as well as what appeared to be Wenke Bach. Laboratory studies: As stated above and show below. Imaging studies: See below. Radiographic imaging was reviewed by myself Consultation(s): Dr. Aguilar was notified about the patient. She will evaluate the patient in the emergency department. 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) Right bundle branch block Osteoarthritis of knees, bilateral Lumbago Thoracic aortic aneurysm (Chronic) Urge incontinence of urine (Acute) Peripheral neuropathy (Chronic) Neurologic gait dysfunction (Acute) Muscle weakness (generalized) (Acute) Internal hemorrhoids (Acute) Hypertension (Chronic) Hearing difficulty (Acute) Gastroesophageal reflux disease (Chronic) Generalized osteoarthritis of multiple sites (Acute) Dyslipidemia (Chronic) Diverticulosis (Acute) Dermatitis (Acute) Cyst of kidney, acquired (Acute) Colon polyps (Acute) BPH with obstruction/lower urinary tract symptoms (Acute) +bladder incontinence Asthma (Acute) Allergic rhinitis (Acute) Diabetes mellitus type 2 in obese controlled, continue insulin Premature supraventricular beats Sinus node arrhythmia Aneurysm of descending thoracic aorta (Chronic) Atrial flutter s/p cardioversion 2005. Recurrent atrial flutter 2017 treated with radiofrequency ablation. 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 Coronary artery disease Status post RCA stent 2006. He had cath December 2016 with patent RCA stent and deployment of BO to left circumflex Medical History Bradycardia Dyspnea Sepsis Vomiting Pneumonia Acute confusion Atrial fibrillation with rapid ventricular response Depression Ambulatory dysfunction wheelchair bound History of aspiration pneumonia Stroke 2016, wheelchair bound, L leg weakness, L arm paralysis H/O unstable angina none per Anemia Hx pulmonary embolism Extensive bilateral, 01/2018 causing ARF Hx of deep venous thrombosis In the left lower extremity in the popliteal vein 01/2018 Bifascicular block dating past 2016 Spinal stenosis BPH (benign prostatic hyperplasia) Diabetes mellitus type 2 in obese diet controlled Hx of gastroesophageal reflux (GERD) Surgical History History of cataract surgery History of endoscopic retrograde cholangiopancreatography History of coronary artery stent placement History of cardiac radiofrequency ablation History of colonoscopy History of tonsillectomy History of cholecystectomy H/O umbilical hernia repair History of cardioversion S/P cardiac cath 2 stents total - 2006 1 stent placed. 12/2016 - [facility] - 1 stent placed. Family History Father Coronary heart disease Cardiac disorder Mother Coronary heart disease Diabetes Hypertension Cardiac disorder Brother Coronary heart disease Diabetes Cardiac disorder Sister Coronary heart disease Diabetes Cardiac disorder Denies family history of Prostate cancer Colorectal cancer Colonic polyp Social History Smoking Status: Never smoker Tobacco Type: Cigarettes Second Hand Exposure: No; Do You Dip or Chew Tobacco: No; Hx Alcohol Use: No Hx Substance Use: No Preferred Language: Thai Communication Ability: Effective Technical Applications Scientist Required: No Beliefs That Will Affect Care: None marital status: Current Living Situation: Spouse 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 occupational status: 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 Feels Safe at Home: Yes Safety Concerns: Feels Safe At This Time Physical Activity Frequency: Other Physical Activity Frequency Comment: limited due to physical condition Assistive Devices: CPAP and Wheelchair Allergies Allergies Allergy/AdvReac Type Severity Reaction Status Date / Time Vczuyon-TON-[id number] Reductase AdvReac Unknown "WEAK" Verified 08/24/24 16:48 Inhibitor [Lzerjwm-Exp-Fbi Reductase Inhibitor] Home Meds Home Medications Medication Instructions Recorded Confirmed multivitamin 1 tab PO QAM ##0 05/08/09 08/24/24 omeprazole 20 mg capsule,delayed 20 mg PO QAM 05/07/18 08/24/24 release tramadol 50 mg tablet 50 mg PO Q6H PRN Pain 06/14/18 08/24/24 aspirin 81 mg tablet,delayed 81 mg PO QPM 09/10/20 08/24/24 release cbd cream 1 applic topical DIRECTED PRN 09/10/20 08/24/24 Pain cholecalciferol (vitamin D3) 50 50 mcg PO DAILY 09/10/20 08/24/24 mcg (2,000 unit) capsule diclofenac sodium 1 % topical gel 2 g topical QID PRN Pain 02/25/21 08/24/24 finasteride 5 mg tablet 5 mg PO QAM #0 tabs 04/29/21 08/24/24 lisinopril 20 mg tablet 20 mg PO QAM 06/13/23 08/24/24 pregabalin 75 mg capsule (Lyrica) 75 mg PO BID 06/13/23 08/24/24 sertraline 50 mg tablet 50 mg PO BID 06/27/23 08/24/24 atorvastatin 40 mg tablet 40 mg PO DAILY 11/28/23 08/24/24 mecobalamin (vitamin B12) 1,000 1,000 mcg PO 3XWK 11/28/23 08/24/24 mcg chewable tablet Previous Rx's Medication Instructions Recorded Wheelchair (Powered) (Power See Rx Instructions .Route 06/28/20 Wheelchair) .COMPLEX #1 ea CPAP Supplies #1 ea 01/06/23 Motorized W/C #1 ea 05/06/24 Motorized Wheel Chair Repair #1 ea 05/06/24 Results & Data (ED) Vital Signs Vital Signs - 24 hr 08/24/24 12:32 08/24/24 12:32 08/24/24 12:32 Temperature 37.0 C 37.0 C Temperature Source Oral Oral Pulse Rate 85 Pulse Rate [Apical] 85 Pulse Rhythm Irregular Pulse Rhythm [Apical] Irregular Pulse Strength Normal Pulse Strength [Apical] Normal Respiratory Rate 20 20 Respiratory Effort / Characteristics Non-Labored Spontaneous Non-Labored Spontaneous Respiratory Depth Normal Normal Respiratory Pattern Regular Regular Blood Pressure 171/95 H Blood Pressure [Left Arm] 171/95 H Blood Pressure Mean 120 Blood Pressure Mean [Left Arm] 120 Blood Pressure Position Semi-fowlers Blood Pressure Position [Left Arm] Semi-fowlers Pulse Oximetry 93 93 93 Oxygen Delivery Method Room Air Room Air Room Air Sepsis Recent Fever Within 48 Hours No Sepsis New/Unexplained Change in Mental Status No Sepsis Action Taken by Nursing No Action Required 08/24/24 12:55 08/24/24 12:56 08/24/24 13:24 Temperature Temperature Source Pulse Rate Pulse Rate [Apical] 92 H 83 Pulse Rhythm Pulse Rhythm [Apical] Irregular Irregular Pulse Strength Pulse Strength [Apical] Normal Normal Respiratory Rate 14 20 Respiratory Effort / Characteristics Non-Labored Spontaneous Non-Labored Spontaneous Respiratory Depth Normal Normal Respiratory Pattern Regular Regular Blood Pressure Blood Pressure [Left Arm] 176/78 H 157/62 H Blood Pressure Mean Blood Pressure Mean [Left Arm] 110 93 Blood Pressure Position Blood Pressure Position [Left Arm] Semi-fowlers Semi-fowlers Pulse Oximetry 96 92 Oxygen Delivery Method Room Air Room Air Sepsis Recent Fever Within 48 Hours Sepsis New/Unexplained Change in Mental Status Sepsis Action Taken by Nursing 08/24/24 15:00 08/24/24 16:00 Temperature Temperature Source Pulse Rate Pulse Rate [Apical] 87 94 H Pulse Rhythm Pulse Rhythm [Apical] Pulse Strength Pulse Strength [Apical] Respiratory Rate 18 20 Respiratory Effort / Characteristics Non-Labored Spontaneous Non-Labored Spontaneous Respiratory Depth Normal Normal Respiratory Pattern Blood Pressure Blood Pressure [Left Arm] 131/94 160/90 H Blood Pressure Mean Blood Pressure Mean [Left Arm] 106 113 Blood Pressure Position Blood Pressure Position [Left Arm] Pulse Oximetry 91 95 Oxygen Delivery Method Room Air Room Air Sepsis Recent Fever Within 48 Hours Sepsis New/Unexplained Change in Mental Status Sepsis Action Taken by [facility] Medications Current Medication List: was personally reviewed by me Laboratory Data Attestation: I reviewed the patient's lab results. 08/25/24 06:50 08/25/24 06:50 Lab Results 08/24/24 08/24/24 Range/Units 12:42 14:30 WBC 10.68 (4.8-10.8) K/ul RBC 4.78 (4.70-6.10) M/uL Hgb 13.4 L (14.0-18.0) g/dl Hct 38.9 L (42.0-52.0) % MCV 81.4 (80.0-100.0) fL MCH 28.0 (25.0-34.0) pg MCHC 34.4 (32.0-36.0) g/dL RDW Std Deviation 45.4 (36.4-46.3) fL RDW Coeff of Jeyson 15.3 H (11.5-14.5) % Plt Count 247 (130-400) K/uL MPV 10.7 (9.4-12.4) fL Immature Gran % (Auto) 0.5 % Neut % (Auto) 84.2 % Lymph % (Auto) 7.9 % Webster % (Auto) 6.7 % Eos % (Auto) 0.5 % Baso % (Auto) 0.2 % Neut # (Auto) 9.00 H (1.40-6.50) K/uL Lymph # (Auto) 0.84 L (1.20-3.40) K/uL Webster # (Auto) 0.72 H (0.11-0.59) K/uL Eos # (Auto) 0.05 (0.00-0.50) K/uL Baso # (Auto) 0.02 (0.00-0.20) K/uL Immature Gran # (Auto) 0.05 (0.01-0.20) K/uL Sodium 141 (136-145) mmol/L Potassium 3.5 (3.5-5.1) mmol/L Chloride 111 H (98-107) mmol/L Carbon Dioxide 21 (21-32) mmol/L Anion Gap 9 (3-11) BUN 17 (6-23) mg/dl Creatinine 0.96 (0.6-1.4) mg/dl Est Cr Clr Drug Dosing 81.9 ml/min eGFR 79.41 BUN/Creatinine Ratio 17.7 (10-20) Glucose 149 H (70-99(Fasting)) mg/dl Calcium 8.5 L (8.6-10.3) mg/dl Total Bilirubin 0.6 (0.2-1.0) mg/dl AST 12 L (13-39) U/L ALT 10 (7-52) U/L Alkaline Phosphatase 101 (34-104) U/L Troponin I High Sens 42.0 H 36.3 H (0-20) pg/ml Total Protein 7.1 (6.0-8.3) gm/dl Albumin 3.3 L (3.4-5.0) gm/dl Globulin 3.8 (2.5-4.0) gm/dl Albumin/Globulin Ratio 0.9 (0.9-2) Lipase 8 L (11-82) U/L SARS-CoV-2 (PCR) NEGATIVE (Negative) Influenza Type A (PCR) Negative (Neg) Influenza Type B (PCR) Negative (Neg) RSV (RT-PCR) Negative (Neg) Administered Medications Aspirin (Aspirin 81 Mg Ectab) 81 mg PO QPM [facility] Stop: 09/23/24 20:59 Last Admin: 08/24/24 21:32 Dose: 81 mg Documented By: SUKH Atorvastatin Calcium (Atorvastatin 40 Mg Tab) 40 mg PO DAILY [facility] Stop: 09/24/24 08:59 Last Admin: 08/25/24 08:33 Dose: 40 mg Documented By: SIAI Finasteride (Finasteride 5 Mg Tab) 5 mg PO [facility] Stop: 09/24/24 08:59 Last Admin: 08/25/24 08:33 Dose: 5 mg Documented By: ISAI Lisinopril (Lisinopril 20 Mg Tab) 20 mg PO [facility] Stop: 09/24/24 08:59 Last Admin: 08/25/24 08:34 Dose: 20 mg Documented By: ISAI Multivitamins (Multivitamin Tab) 1 tab PO [facility] Stop: 09/24/24 08:59 Last Admin: 08/25/24 08:33 Dose: 1 tab Documented By: ISAI Pantoprazole Sodium (Pantoprazole 40 Mg Tab) 40 mg PO [facility]; Protocol Stop: 09/24/24 08:59 Last Admin: 08/25/24 08:33 Dose: 40 mg Documented By: ISAI Pregabalin (Pregabalin 75 Mg Cap) 75 mg PO BID [facility] Stop: 09/23/24 20:59 Last Admin: 08/25/24 08:33 Dose: 75 mg Documented By: Admin: 08/24/24 21:32 Dose: 75 mg Documented By: SUKH Sertraline HCl (Sertraline Hcl 50 Mg Tablet) 50 mg PO BID [facility] Stop: 09/23/24 20:59 Last Admin: 08/25/24 08:34 Dose: 50 mg Documented By: Admin: 08/24/24 21:32 Dose: 50 mg Documented By: SUKH Vitamin D (Cholecalciferol 25 Mcg (1000 Units) Tab) 50 mcg PO DAILY [facility] Stop: 09/24/24 08:59 Last Admin: 08/25/24 08:33 Dose: 50 mcg Documented By: ISAI Discontinued Medications Sodium Chloride (Nss) 500 mls @ 80 mls/hr IV .Q6H15M [facility] Stop: 08/25/24 00:59 Last Infusion: 08/25/24 02:17 Dose: Infused Documented By: Admin: 08/24/24 20:04 Dose: 80 mls/hr Documented By: OTTONIEL Imaging Data Attestation: I personally reviewed and interpreted this imaging study as follows: My Impression: 1 view chest x-ray was obtained in the emergency department. My interpretation is no free air or definite infiltrate, final report below. KUB was obtained. My interpretation is no definite bowel obstruction or free air, final report below Radiologist's Impression: Chest X-Ray 08/24/24 12:28 INDICATION: Cough. Abdominal pain. TECHNIQUE: 2 frontal radiographs of the chest. 3 frontal radiographs of the abdomen. COMPARISON: Chest radiograph from 07/24/2022. FINDINGS: Cardiomegaly. Mild pulmonary vascular congestion. No infiltrate, pleural effusion or pneumothorax. No dilated loops of bowel or air-fluid levels. No free air. No pathologic calcifications. Surgical clips noted. No acute osseous or soft tissue abnormality. IMPRESSION: 1. Mild pulmonary vascular congestion. 2. No acute process in the abdomen. Electronically signed by Alton Thorpe 08-24-2024 3:01 PM KUB X-Ray 08/24/24 12:28 INDICATION: Cough. Abdominal pain. TECHNIQUE: 2 frontal radiographs of the chest. 3 frontal radiographs of the abdomen. COMPARISON: Chest radiograph from 07/24/2022. FINDINGS: Cardiomegaly. Mild pulmonary vascular congestion. No infiltrate, pleural effusion or pneumothorax. No dilated loops of bowel or air-fluid levels. No free air. No pathologic calcifications. Surgical clips noted. No acute osseous or soft tissue abnormality. IMPRESSION: 1. Mild pulmonary vascular congestion. 2. No acute process in the abdomen. Electronically signed by Alton Thorpe 08-24-2024 3:01 PM Discharge Plan Visit Data Chief Complaint: Illness ED Provider: Donnie Foster Discharge Problem: Diarrhea, Weakness, Elevated troponin I level Patient Disposition: Admitted As Inpatient Discharge Instructions Interventions: ED Discharge Assessment Last Done: 08/24/24 20:20 Discharge Problem: Diarrhea Qualifiers: Diarrhea type: unspecified type Qualified Code(s): R19.7 - Diarrhea, unspecified
[2024-08-24 13:11] LABS: Basophils # (auto) 0.02 K/uL (0.00-0.20); Basophils % (auto) 0.2 %; Eosinophils # (auto) 0.05 K/uL (0.00-0.50); Eosinophils % (auto) 0.5 %; Hematocrit (blood only) 38.9 % (42.0-52.0); Hemoglobin 13.4 g/dl (14.0-18.0); Immature Granulocytes # (auto) 0.05 K/uL (0.01-0.20); Immature Granulocytes % (auto) 0.5 %; Lymphocytes # (auto) 0.84 K/uL (1.20-3.40); Lymphocytes % (auto) 7.9 %; Mean Corpuscular Hgb Conc 34.4 g/dL (32.0-36.0); Mean Corpuscular Volume 81.4 fL (80.0-100.0); Mean Platelet Volume 10.7 fL (9.4-12.4); Monocytes # (auto) 0.72 K/uL (0.11-0.59); Monocytes % (auto) 6.7 %; Neutrophils % (auto) 84.2 %; Platelet Count 247 K/uL (130-400); RDW Coefficient of Variation 15.3 % (11.5-14.5); RDW Standard Deviation 45.4 fL (36.4-46.3); Red Blood Count 4.78 M/uL (4.70-6.10); White Blood Count 10.68 K/ul (4.8-10.8)
[2024-08-24 13:21] LABS: Albumin Globulin Ratio 0.9 (0.9-2); Albumin Level 3.3 gm/dl (3.4-5.0); BUN Creatinine Ratio 17.7 (10-20); Bilirubin,Total 0.6 mg/dl (0.2-1.0); Calcium 8.5 mg/dl (8.6-10.3); Creatinine Clr Calc Pharmacy 81.9 ml/min; Globulin 3.8 gm/dl (2.5-4.0); Potassium 3.5 mmol/L (3.5-5.1); Total Protein 7.1 gm/dl (6.0-8.3)
[2024-08-24 14:02] LABS: Influenza A virus by PCR Negative (Neg); Influenza B virus by PCR Negative (Neg); RSV by PCR Negative (Neg); SARS CoV2 RNA(COVID-19) Ceph NEGATIVE (Negative)
--- NOTE | 2024-08-24 15:01 | XRay Report ---
INDICATION: Cough. Abdominal pain. TECHNIQUE: 2 frontal radiographs of the chest. 3 frontal radiographs of the abdomen. COMPARISON: Chest radiograph from 07/24/2022. FINDINGS: Cardiomegaly. Mild pulmonary vascular congestion. No infiltrate, pleural effusion or pneumothorax. No dilated loops of bowel or air-fluid levels. No free air. No pathologic calcifications. Surgical clips noted. No acute osseous or soft tissue abnormality. IMPRESSION: 1. Mild pulmonary vascular congestion. 2. No acute process in the abdomen. Electronically signed by Alton Thorpe 08-24-2024 3:01 PM
--- NOTE | 2024-08-24 16:47 | Electrocardiogram Report ---
Test Reason : Blood Pressure : */* mmHG Vent. Rate : 85 BPM Atrial Rate : * BPM P-R Int : * ms QRS Dur : 130 ms QT Int : 432 ms P-R-T Axes : * -79 60 degrees QTcB Int : 514 ms Atrial fibrillation Right bundle branch block Left anterior fascicular block Bifascicular block Possible Lateral infarct , age undetermined Abnormal ECG When compared with ECG of 27-Jun-2023 11:33, (unconfirmed) Atrial fibrillation has replaced Wide QRS rhythm Vent. rate has increased by 42 bpm Confirmed by Cassandra Ann (Eleuterio) on 08/24/2024 4:47:11 PM Referred By: REFERRED SELF Confirmed By: Cassandra Ann
--- NOTE | 2024-08-24 17:56 | History & Physical Report ---
Date of Service August 24, 2024 Assessment & Plan (1) Diarrhea: (2) Weakness: (3) Elevated troponin I level: Plan 79-year-old male with PMHx CAD s/p multiple cardiac stents, moderate aortic stenosis, GERD, HTN, BPH, asthma, T2DM, A-flutter s/p ablation, CELY, HLD and prior CVA with left-sided hemiparesis who presents for multiple episodes of diarrhea. Recent travel to [place], with sick contact being additional family members. States that he had a "blowout" over the night, to the point where he made it go rather weak and not himself. KUB XR w/o acute findings; no leukocytosis or gross abnormalities on CMP. Was found to have elevated troponin, but denying chest pain, SOB, or palpitations. #Diarrhea/Weakness Onset of diarrhea 1 night [employer]IN[employer] , "many" times per day, unable to give exact number. States "probably" when asked if it is less than 10. Denies blood or muc us in stool. Multiple sick contacts in family with the same symptoms. Otherwise, patient states that he has some abdominal pain across his lower abdomen, rating it "just a little" and as a dull pain. Has not felt feverish, but states that he thinks he had a fever on the way to the ED. Last abx was December 2023 x 7 days; no recent abx use otherwise. Most likely viral gastroenteritis - Appearing euvolemic on exam, mild abdominal pain lower abdomen; KUB w/o acute findings - CBC w/o leukocytosis; CMP w/o gross abnormalities w/ exception AST 12 and calcium 8.5- CBC + BMP am - Provide IV NSS 500 mL for now given ongoing diarrhea - Stool biofire + C.Diff stool studies pending - No current indications for abx-> Deferred abx at admission - WC at baseline 2/2 h/o CVA; PT/OT placed #Elevated troponin Pt w/ h/o CAD s/p stenting; no current chest pain, SOB, or palpitations; ? Rhys on telemetry- placed on med/tele for this reason; Follows w/ cardiology outpatient, most recent 02/2024 - Troponin 42-> 36.3, no need to repeat another troponin - EKG read as A-fib, RBBB, rate 85 by cardiology, but review of telemetry here shows most likely Wenckebach-continue telemetry monitoring - Likely 2/2 demand #T2DM H/o DMT2, per history - No home medications; most recent A1C 2021 @ 6.6% - Given no home regimen, will defer SSI at time of admission #CELY- CPAP #CAD/HTN/HLD/A.flutter- S/p afib ablation and no longer on anticoagulation; ASA, lisinopril, atorvastatin. With possible second-degree heart block here versus A-fib on telemetry-continue to monitor and consider consultation with cardiology if rhythm is unclear #BPHfinasteride #GERD- omeprazole #Chronic pain-tramadol, pregabalin, CBD cream #Depression- sertraline Dispo: Bring into medical floor with telemetry on observation. Most likely discharge to home in 08/25 VTE Prophylaxis: SCDs- no anticoag 2/2 prior hemorrhagic CVA, add chemical prophylaxis w/ caution if prolonged stay This document was dictated utilizing [employer]. Please excuse any grammatical errors that may be secondary to use of this software. Admission and Anticipated Discharge Date Admission Date: 08/24/2024 History of Present Illness Chief Complaint: Diarrhea, weakness Primary Care Provider: Kane Granados MD 79-year-old male with PMHx CAD s/p multiple cardiac stents, moderate aortic stenosis, GERD, HTN, BPH, asthma, T2DM, A-flutter s/p ablation, CELY, HLD and prior CVA with left-sided hemiparesis who presents for multiple episodes of diarrhea. Recent travel to [place], with sick contact being additional family members. States that he had a "blowout" over the night, to the point where he made it go rather weak and not himself. Patient states that his had to help clean him up and she noted that he was off his baseline. Patient states that he just felt more weak after being sick. Having mild abdominal pain across the lower abdomen, patient not able to qualify. Patient states he has had "probably" less than 10 stools per day when asked. Has not noticed any blood or mucus in stool. Not having nausea or vomiting. Troponin was found to be slightly elevated on admitting labs. Denying chest pain, shortness of breath, palpitations, or episodes of diaphoresis. Patient states overall he feels okay but has continued to have episodes of diarrhea. Took a.m. medications. Last abx was December 2023 x 7 days; no recent abx use otherwise. Please see Dr. Aguilar's attestation for adjustments/additions to treatment plan. Allergies Allergy/AdvReac Type Severity Reaction Status Date / Time Edizhce-QZT-TdH Reductase AdvReac Unknown "WEAK" Verified 08/24/24 16:48 Inhibitor [Nuiteup-Jje-Bxl Reductase Inhibitor] Home Medications Medication Instructions Recorded Confirmed Type multivitamin 1 tab PO QAM ##0 05/08/09 08/24/24 History omeprazole 20 mg capsule,delayed 20 mg PO QAM 05/07/18 08/24/24 History release tramadol 50 mg tablet 50 mg PO Q6H PRN Pain 06/14/18 08/24/24 History Wheelchair (Powered) (Power See Rx Instructions .Route 06/28/20 03/21/24 Rx Wheelchair) .COMPLEX #1 ea aspirin 81 mg tablet,delayed 81 mg PO QPM 09/10/20 08/24/24 History release cbd cream 1 applic topical DIRECTED PRN 09/10/20 08/24/24 History Pain cholecalciferol (vitamin D3) 50 50 mcg PO DAILY 09/10/20 08/24/24 History mcg (2,000 unit) capsule diclofenac sodium 1 % topical gel 2 g topical QID PRN Pain 02/25/21 08/24/24 History finasteride 5 mg tablet 5 mg PO QAM #0 tabs 04/29/21 08/24/24 History CPAP Supplies #1 ea 01/06/23 03/21/24 Rx lisinopril 20 mg tablet 20 mg PO QAM 06/13/23 08/24/24 History pregabalin 75 mg capsule (Lyrica) 75 mg PO BID 06/13/23 08/24/24 History sertraline 50 mg tablet 50 mg PO BID 06/27/23 08/24/24 History atorvastatin 40 mg tablet 40 mg PO DAILY 11/28/23 08/24/24 History mecobalamin (vitamin B12) 1,000 1,000 mcg PO 3XWK 11/28/23 08/24/24 History mcg chewable tablet Motorized W/C #1 ea 05/06/24 Rx Motorized Wheel Chair Repair #1 ea 05/06/24 Rx 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) Right bundle branch block Osteoarthritis of knees, bilateral Lumbago Thoracic aortic aneurysm (Chronic) Urge incontinence of urine (Acute) Peripheral neuropathy (Chronic) Neurologic gait dysfunction (Acute) Muscle weakness (generalized) (Acute) Internal hemorrhoids (Acute) Hypertension (Chronic) Hearing difficulty (Acute) Gastroesophageal reflux disease (Chronic) Generalized osteoarthritis of multiple sites (Acute) Dyslipidemia (Chronic) Diverticulosis (Acute) Dermatitis (Acute) Cyst of kidney, acquired (Acute) Colon polyps (Acute) BPH with obstruction/lower urinary tract symptoms (Acute) +bladder incontinence Asthma (Acute) Allergic rhinitis (Acute) Diabetes mellitus type 2 in obese controlled, continue insulin Premature supraventricular beats Sinus node arrhythmia Aneurysm of descending thoracic aorta (Chronic) Atrial flutter s/p cardioversion 2005. Recurrent atrial flutter 2016 treated with radiofrequency ablation. 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 Coronary artery disease Status post RCA stent 2006. He had cath December 2016 with patent RCA stent and deployment of BO to left circumflex Medical History Bradycardia Dyspnea Sepsis Vomiting Pneumonia Acute confusion Atrial fibrillation with rapid ventricular response Depression Ambulatory dysfunction wheelchair bound History of aspiration pneumonia Stroke 2017, wheelchair bound, L leg weakness, L arm paralysis H/O unstable angina none per Anemia Hx pulmonary embolism Extensive bilateral, 01/2018 causing ARF Hx of deep venous thrombosis In the left lower extremity in the popliteal vein 01/2018 Bifascicular block dating past 2017 Spinal stenosis BPH (benign prostatic hyperplasia) Diabetes mellitus type 2 in obese diet controlled Hx of gastroesophageal reflux (GERD) Surgical History History of cataract surgery History of endoscopic retrograde cholangiopancreatography History of coronary artery stent placement History of cardiac radiofrequency ablation History of colonoscopy History of tonsillectomy History of cholecystectomy H/O umbilical hernia repair History of cardioversion S/P cardiac cath 2 stents total - 2006 1 stent placed. 12/2016 - [facility] - 1 stent placed. Family History Father Coronary heart disease Cardiac disorder Mother Coronary heart disease Diabetes Hypertension Cardiac disorder Brother Coronary heart disease Diabetes Cardiac disorder Sister Coronary heart disease Diabetes Cardiac disorder Denies family history of Prostate cancer Colorectal cancer Colonic polyp Social History Smoking Status: Never smoker Tobacco Type: Cigarettes Second Hand Exposure: No; Do You Dip or Chew Tobacco: No; Hx Alcohol Use: No Hx Substance Use: No Preferred Language: Hebrew Communication Ability: Effective Pharmacy Clinical Specialist Required: No Beliefs That Will Affect Care: None marital status: Current Living Situation: Spouse current occupational status: 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 Feels Safe at Home: Yes Safety Concerns: Feels Safe At This Time Physical Activity Frequency: Other Physical Activity Frequency Comment: limited due to physical condition Assistive Devices: CPAP and Wheelchair Review of Systems Review of Systems: All systems reviewed & are unremarkable except as noted in Subjective Physical Exam Physical Exam: General: No acute distress; yawning multiple times throughout exam Skin: Warm and dry, without rashes or lesions Head: Normocephalic, atraumatic Eyes: PERRL, conjunctivae clear, sclera non-icteric ENT: External ear and ear canal without swelling; nose atraumatic; poor dentition, tongue normal appearance, pharynx normal without tonsillar swelling or exudate Neck: Supple, no LAD Cardio: Regular rate, irregularly irregular rhythm, systolic murmur, no G/R, S1 and S2 normal Resp: No respiratory distress, Lungs CTA in all lobes bilaterally, no wheezes, rales, or rhonchi Abdomen: Soft, symmetric, nontender; few visible surgical scars, no distention; No masses or hepatosplenomegaly; Bowel sounds normoactive MSK: No deformities, full ROM throughout; pulses palpable and equal; trace pitting edema BLE. Neuro: Awake, alert; CN grossly intact Psych: Appropriate mood and affect; good judgement and insight. Results & Data Results & Data Vital Signs (Past 12 Hours) Vital Signs Temp Pulse Pulse Resp BP BP Pulse Ox 08/24/24 16:00 94 H 20 160/90 H 95 08/24/24 15:00 87 18 131/94 91 08/24/24 13:24 83 20 157/62 H 92 08/24/24 12:56 176/78 H 08/24/24 12:55 92 H 14 96 08/24/24 12:32 93 08/24/24 12:32 37.0 C 85 20 171/95 H 93 08/24/24 12:32 37.0 C 85 20 171/95 H 93 O2 Del Method 08/24/24 16:00 Room Air 08/24/24 15:00 Room Air 08/24/24 13:24 Room Air 08/24/24 12:56 08/24/24 12:55 Room Air 08/24/24 12:32 Room Air 08/24/24 12:32 Room Air 08/24/24 12:32 Room Air Laboratory Results 08/24/24 08/24/24 14:30 12:42 WBC 10.68 RBC 4.78 Hgb 13.4 L Hct 38.9 L MCV 81.4 MCH 28.0 MCHC 34.4 RDW Std Deviation 45.4 RDW Coeff of Jeyson 15.3 H Plt Count 247 MPV 10.7 Immature Gran % (Auto) 0.5 Neut % (Auto) 84.2 Lymph % (Auto) 7.9 [place] % (Auto) 6.7 Eos % (Auto) 0.5 Baso % (Auto) 0.2 Neut # (Auto) 9.00 H Lymph # (Auto) 0.84 L [place] # (Auto) 0.72 H Eos # (Auto) 0.05 Baso # (Auto) 0.02 Immature Gran # (Auto) 0.05 Sodium 141 Potassium 3.5 Chloride 111 H Carbon Dioxide 21 Anion Gap 9 BUN 17 Creatinine 0.96 Est Cr Clr Drug Dosing 81.9 eGFR 79.41 BUN/Creatinine Ratio 17.7 Glucose 149 H Calcium 8.5 L Total Bilirubin 0.6 AST 12 L ALT 10 Alkaline Phosphatase 101 Troponin I High Sens 36.3 H 42.0 H Total Protein 7.1 Albumin 3.3 L Globulin 3.8 Albumin/Globulin Ratio 0.9 Lipase 8 L SARS-CoV-2 (PCR) NEGATIVE Influenza Type A (PCR) Negative Influenza Type B (PCR) Negative RSV (RT-PCR) Negative Diagnostic Findings Chest X-Ray 08/24/24 12:28 INDICATION: Cough. Abdominal pain. TECHNIQUE: 2 frontal radiographs of the chest. 3 frontal radiographs of the abdomen. COMPARISON: Chest radiograph from 07/24/2022. FINDINGS: Cardiomegaly. Mild pulmonary vascular congestion. No infiltrate, pleural effusion or pneumothorax. No dilated loops of bowel or air-fluid levels. No free air. No pathologic calcifications. Surgical clips noted. No acute osseous or soft tissue abnormality. IMPRESSION: 1. Mild pulmonary vascular congestion. 2. No acute process in the abdomen. Electronically signed by Alton Thorpe 08-24-2024 3:01 PM KUB X-Ray 08/24/24 12:28 INDICATION: Cough. Abdominal pain. TECHNIQUE: 2 frontal radiographs of the chest. 3 frontal radiographs of the abdomen. COMPARISON: Chest radiograph from 07/24/2022. FINDINGS: Cardiomegaly. Mild pulmonary vascular congestion. No infiltrate, pleural effusion or pneumothorax. No dilated loops of bowel or air-fluid levels. No free air. No pathologic calcifications. Surgical clips noted. No acute osseous or soft tissue abnormality. IMPRESSION: 1. Mild pulmonary vascular congestion. 2. No acute process in the abdomen. Electronically signed by Alton Thorpe 08-24-2024 3:01 PM Code Status & VTE Plan Code Status DNR/DNI VTE Prophylaxis Plan VTE Prophylaxis will be ordered: Yes Supervising Physician Co-Signing Physician Notes PA Tom Note: I personally saw and examined the patient. I verified all summers points and agree with RICHARD Alejandro with the following exceptions and/or additions: S-patient presents with multiple episodes of diarrhea, weakness, perhaps some fevers and mild cough. Denies chest pains. Mild abdominal pain but now seems to be improved. Denies nausea or vomiting, no blood in the stool. Denies lightheadedness History and ROS otherwise reviewed as above O- Vitals reviewed Gen: AAOx3, NAD, morbidly obese HEENT: Anicteric sclerae CV: RRR with occasional dropped beat no mgr nl S1S2 Pulm: CTAB no wcr Abd: +BS soft NT ND no masses or hernias Ext: No edema Skin: No rashes, warm/dry A/F-[id number]-old male here with likely viral gastroenteritis and generalized weakness, mildly elevated troponin likely myocardial demand ischemia Admit for further observation, monitor telemetry given possible second-degree versus A-fib Provide gentle IV fluids PT/OT consulted but patient is mostly wheelchair and bedbound and taken care of by his so most likely would not need rehab PG Care Time/CCT Total # of Minutes Spent Total Time Spent with Patient: Total time spent is greater than 50% in coordination of care (as documented) at patient's floor/unit and/or counseling patient: Coding Level of Care Code 80200 INT INP/OBS CARE MIN Diagnoses Diarrhea R19.7 Diarrhea type: unspecified type Weakness R53.1 Elevated troponin I level R79.89 (1) Diarrhea Diarrhea type: unspecified type Qualified Code(s): R19.7 - Diarrhea, unspecified
[2024-08-24] MEDS ORDERED: CANNABIDIOL topical PRN (18:37)
[2024-08-24] MEDS ORDERED: traMADol HCL 50 MG TABLET PO PRN (18:37)
[2024-08-24] MEDS ORDERED: ACETAMINOPHEN 325 MG TAB PO PRN (18:37)
[2024-08-24] MEDS ORDERED: DICLOFENAC SOD 1% GEL 100 GM TUBE EXT PRN (18:37)
[2024-08-24] MEDS ORDERED: MELATONIN 3 MG TAB PO PRN (18:37)
[2024-08-24] MEDS: SODIUM CHLORIDE 0.9% 500 ML IV SCH (20:04)
[2024-08-24] MEDS: ASPIRIN 81 MG ECTAB PO SCH (21:32)
[2024-08-24] MEDS: PREGABALIN 75 MG CAP PO SCH (21:32)
[2024-08-24] MEDS: SERTRALINE HCL 50 MG TABLET PO SCH (21:32)
[2024-08-25 07:28] LABS: Hemoglobin 11.8 g/dl (14.0-18.0); Mean Corpuscular Hemoglobin 27.3 pg (25.0-34.0); Mean Corpuscular Hgb Conc 33.7 g/dL (32.0-36.0); Mean Corpuscular Volume 80.8 fL (80.0-100.0); Mean Platelet Volume 10.4 fL (9.4-12.4); Platelet Count 209 K/uL (130-400); RDW Coefficient of Variation 15.5 % (11.5-14.5); RDW Standard Deviation 45.8 fL (36.4-46.3); Red Blood Count 4.33 M/uL (4.70-6.10); White Blood Count 6.74 K/ul (4.8-10.8)
[2024-08-25 07:51] LABS: BUN Creatinine Ratio 15.6 (10-20); Calcium 8.3 mg/dl (8.6-10.3); Creatinine Clr Calc Pharmacy 87.5 ml/min; Magnesium 1.7 mg/dl (1.7-2.4); Potassium 3.4 mmol/L (3.5-5.1)
[2024-08-25 07:55] VITALS: RESP 16
[2024-08-25] MEDS: FINASTERIDE 5 MG TAB PO SCH (08:33)
[2024-08-25] MEDS: CHOLECALCIFEROL 25 MCG (1000 UNITS) TAB PO SCH (08:33)
[2024-08-25] MEDS: ATORVASTATIN 40 MG TAB PO SCH (08:33)
[2024-08-25] MEDS: PANTOprazole 40 MG TAB PO SCH (08:33)
[2024-08-25] MEDS: MULTIVITAMIN TAB PO SCH (08:33)
[2024-08-25] MEDS: lisinopril 20 MG TAB PO SCH (08:34)
--- NOTE | 2024-08-25 10:05 | Discharge Summary ---
Date of Service August 25, 2024 Admission HPI Per Admitting Provider 79-year-old male with PMHx CAD s/p multiple cardiac stents, moderate aortic stenosis, GERD, HTN, BPH, asthma, T2DM, A-flutter s/p ablation, CELY, HLD and prior CVA with left-sided hemiparesis who presents for multiple episodes of diarrhea. Recent travel to [place], with sick contact being additional family members. States that he had a "blowout" over the night, to the point where he made it go rather weak and not himself. Patient states that his had to help clean him up and she noted that he was off his baseline. Patient states that he just felt more weak after being sick. Having mild abdominal pain across the lower abdomen, patient not able to qualify. Patient states he has had "probably" less than 10 stools per day when asked. Has not noticed any blood or mucus in stool. Not having nausea or vomiting. Troponin was found to be slightly elevated on admitting labs. Denying chest pain, shortness of breath, palpitations, or episodes of diaphoresis. Patient states overall he feels okay but has continued to have episodes of diarrhea. Took a.m. medications. Last abx was December 2023 x 7 days; no recent abx use otherwise. Please see Dr. Aguilar's attestation for adjustments/additions to treatment plan. Admission Exam Per Admitting Provider General: No acute distress; yawning multiple times throughout exam Skin: Warm and dry, without rashes or lesions Head: Normocephalic, atraumatic Eyes: PERRL, conjunctivae clear, sclera non-icteric ENT: External ear and ear canal without swelling; nose atraumatic; poor dentition, tongue normal appearance, pharynx normal without tonsillar swelling or exudate Neck: Supple, no LAD Cardio: Regular rate, irregularly irregular rhythm, systolic murmur, no G/R, S1 and S2 normal Resp: No respiratory distress, Lungs CTA in all lobes bilaterally, no wheezes, rales, or rhonchi Abdomen: Soft, symmetric, nontender; few visible surgical scars, no distention; No masses or hepatosplenomegaly; Bowel sounds normoactive MSK: No deformities, full ROM throughout; pulses palpable and equal; trace pitting edema BLE. Neuro: Awake, alert; CN grossly intact Psych: Appropriate mood and affect; good judgement and insight. Principal Diagnosis Viral gastroenteritis Discharge Exam General: patient resting comfortably, NAD, non-toxic in appearance, answers questions appropriately. Skin: warm, dry, intact HEENT: NC/AT, anicteric sclera, conjunctiva without injection, moist mucus membranes. Heart: +S1/S2, regular, no m/r/g Lungs: equal air entry bilaterally, no rales/rhonchi/wheezes Abd: +BS, soft, NT/ND. Ext: warm, no clubbing/cyanosis or edema Neuro: nonfocal, speech intact, no facial droop, moving all extremities. 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 Patient has 2/10 dull lower abdominal pain abdominal. No recent abx use. - Appearing euvolemic on exam, mild abdominal pain lower abdomen; KUB w/o acute findings - CBC w/o leukocytosis; CMP w/o gross abnormalities w/ exception AST 12 and calcium 8.5- CBC + BMP am - Provide IV NSS 500 mL for now given ongoing diarrhea - C.diff negaative - WC at baseline 2/2 h/o CVA - Abdominal pain, diarrhea, and nausea resolved Elevated troponin - Pt w/ h/o CAD s/p stenting; no current chest pain, SOB, or palpitations - Troponin 42-> 36.3, no need to repeat another troponin - EKG read as A-fib, RBBB, rate 85 by cardiology, potential Wenckebach heart block pattern - Likely 2/2 demand, condition stable Chronic problems: T2DM - No home medications; most recent A1C 2021 @ 6.6% CELY- CPAP CAD/HTN/HLD/A.flutter- S/p afib ablation and no longer on anticoagulation; Continue ASA, lisinopril, atorvastatin. BPHfinasteride GERD- omeprazole Chronic pain-tramadol, pregabalin, CBD cream Depression- Continue sertraline Total Time Total Time Spent Total Time Spent (In Minutes): 35 minutes Discharge Plan Discharge Items Patient Disposition: Home - Self-Care Reason For Visit: DIARRHEA,WEAKNESS Discharge Diagnosis: Viral gastroenteritis Activity: Per Instructions section Non-emergency contact: Primary Care Provider Call non-emergency contact if: your pain is not controlled Follow-up/Referrals: Kane Granados MD [Primary Care Provider] - 09/04/24 11:00 am Diet: Heart Healthy Addtl Attending Provider Instructions: You were admitted to [facility] due to increased diarrhea and weakness for the past 3 days after your recent trip to [place]. In the hospital, you were treated with IV fluids, pain medications, and a proton pump inhibitor medication to control the acidity in your stomach while you were nauseated with diarrhea. You were admitted very briefly as your condition rapidly improved during your stay, and day 3 of your illness did not have any more diarrhea or nausea. You did have mild abdominal soreness this morning that was likely due to your infection, and this pain has also been resolving with rest and medication. A discharge summary will be sent to your primary care physician to ensure continuity of care. Please bring this discharge summary with you to your next office appointment so that your provider can review it at that time. Follow-up appointments: Make a follow-up appointment with your PCP within the next week. It is very important that you follow up with them shortly after discharge from the hospital. Medications: Your medication list has been reviewed and reconciled upon discharge to ensure accuracy and continuity of care. An updated list of all your medications is included with your hospital discharge paperwork. Please review this list closely, and make note of any changes. Take your medications as instructed; do not skip a dose of your medicines. Make sure all of your doctors know every medicine you are taking (including glmo-qzf-cwslqoy medicines, vitamins, and supplements). Call your primary care provider before taking any new medicines (including bxbf-eoc-lndujcm medicines, vitamins, and supplements), because some of these may interact with your current medications, or may make your symptoms worse. Tell your primary care provider if you cannot afford your medications. CONTACT YOUR PRIMARY CARE PROVIDER if you experience any of the following: Difficulty following your treatment plan, or difficulty taking medications CALL 911 OR GO TO THE EMERGENCY DEPARTMENT if you experience any of the following: Sudden, severe abdominal pain or nausea/vomiting Severe chest pain, or chest pain that radiates (moves) to your jaw or arm Sudden, severe shortness of breath or difficulty breathing Thank you for allowing us to participate in your care. Pending Studies at Discharge: No Stand-Alone Forms: My [facility], Smoking Cessation Medications and DC Order Prescriptions: New apixaban 5 mg tablet 5 mg PO BID Qty: 60 0RF Rx Instructions: Please take Eliquis 5mg twice daily. 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 Continued cholecalciferol (vitamin D3) 50 mcg (2,000 unit) capsule 50 mcg PO DAILY aspirin 81 mg tablet,delayed release (DR/EC) 81 mg PO QPM cbd cream 1 applic topical DIRECTED PRN (Reason: Pain) diclofenac sodium 1 % gel 2 g topical QID PRN (Reason: Pain) Rx Instructions: apply to single elbow, wrist or hand; for hand includes palm/fingers/back of hand multivitamin Tablet 1 tab PO QAM Qty: 0 finasteride 5 mg tablet 5 mg PO QAM Qty: 0 (DME) Motorized W/C See Rx Instructions .ROUTE .MEDSUPPLY Qty: 1 0RF Rx Instructions: Motorized W/C repair (DME) Motorized Wheel Chair Repair See Rx Instructions .Route .MEDSUPPLY Qty: 1 0RF Rx Instructions: Repair motorized wheel chair as needed (DME) CPAP Supplies Misc See Rx Instructions .Route Qty: 1 0RF Rx Instructions: new hose, & new mask Power Wheelchair Device See Rx Instructions .ROUTE .COMPLEX Qty: 1 0RF Rx Instructions: one each use as directed; atorvastatin 40 mg tablet 40 mg PO DAILY mecobalamin (vitamin B12) 1,000 mcg tablet,chewable 1,000 mcg PO 3XWK Rx Instructions: M/W/F omeprazole 20 mg Capsule,Delayed Release(Dr/Ec) 20 mg PO QAM tramadol 50 mg Tablet 50 mg PO Q6H PRN (Reason: Pain) sertraline 50 mg tablet 50 mg PO BID pregabalin [Lyrica] 75 mg Capsule 75 mg PO BID lisinopril 20 mg tablet 20 mg PO QAM Discharge Orders: Discharge Order (Routine); Ordered 08/25/24 Ordered By: Dannie Bui Admission Data Admit Date/Time: 08/24/24 17:53 Attending Provider: Benedicto Vasquez Admit Provider: Erica Aguilar Primary Care Provider: Kane Granados Other Providers: Erica Aguilar Other Interventions: Discharge Summary Assessment (RN) Last Done: 08/25/24 14:51 Supervising Physician Co-Signing Physician Notes ATTESTATION I also saw the patient and confirmed summers portions of the history and exam. I agree with the impression and plan in the resident documentation, and as summarized below. Upon our exam around noon, patient without complaint and desire to go home. He has a history of CVA and is dependent on his for transfers; he feels that he is strong enough to be mobile at home with her help. He has not had a bowel movement today. Again confirms that multiple family members had similar post holiday gathering. EXAM VS as noted Alert and oriented CV Regular; occ ectopy, rate 72 Lungs Clear ABD soft and non tender DATA Labs No white count Potassium 3.4 BUN 14, Cr 0.90 IMPRESSION & PLAN Viral gastroenteritis, resolved Patient symptoms resolved and desire discharge Question A-fib Patient with history of a-flutter S/P ablation Admission EKG reviewed; admission telemetry questioned sinus with ectopy v second-degree block Floor telemetry rate controlled a-fib Cardiovascular exam today demonstrates regular rate and rhythm In review of records, patient with ischemic stroke with hemorrhagic conversion in 2018. He was not on AC at that time. He has been on AC previously (bilateral PE). Will add Eliquis 5 mg BID He has PCP follow up and can have repeat EKG at that appointment I will reach out to PCP to assure coordinated follow up. Additional per resident documentation Resident Activity Tracking Resident Involvement: Resident Care Provided Care Provided: Adult Hospital Medicine
[2024-08-25 11:58] VITALS: TEMP 97.7; O2SAT 90
[2024-08-25 14:52] VITALS: BP 159/69; PULSE 76
[2024-08-26] MEDS ORDERED: CYANOCOBALAMIN (B-12) 500 MCG TABLET PO SCH (09:00)
== END 2024-08-25 16:00 | disposition home or self-care (01) ==
LOC: ED 12:18 → EDINP 12:18 → SUATTDRO 17:53 → EDINP 20:20 → 2N 21:04